=== PATIENT | female | born 1960 | race Caucasian/White ===

== ENCOUNTER 2022-02-05 17:40 | Observation (INO) ==
[2022-02-05 19:08] LABS: Basophils # (auto) 0.02 K/uL (0-0.2); Basophils % (auto) 0.2 %; Eosinophils # (auto) 0.18 K/uL (0-0.5); Eosinophils % (auto) 2.1 %; Hematocrit (blood only) 40.3 % (37-47); Immature Granulocytes # (auto) 0.01 K/uL (0.00-0.02); Immature Granulocytes % (auto) 0.1 %; Lymphocytes # (auto) 1.96 K/uL (1.2-3.4); Lymphocytes % (auto) 23.3 %; Mean Corpuscular Hemoglobin 32.6 pg (25-34); Mean Corpuscular Hgb Conc 34.7 g/dL (32-36); Mean Corpuscular Volume 93.7 fL (80-100); Mean Platelet Volume 10.6 fL (7.4-10.4); Monocytes # (auto) 0.49 K/uL (0.11-0.59); Monocytes % (auto) 5.8 %; Neutrophils # (auto) 5.75 K/uL (1.4-6.5); Neutrophils % (auto) 68.5 %; Platelet Count 212 K/uL (130-400); RDW Coefficient of Variation 12.8 % (11.5-14.5); RDW Standard Deviation 43.7 fL (36.4-46.3); White Blood Count 8.41 K/uL (4.8-10.8)
[2022-02-05 19:18] LABS: INR 0.9 (0.9-1.1); Partial Thromboplastin Ratio 0.9; Partial Thromboplastin Time 24.7 Seconds (21.0-31.0)
[2022-02-05 19:28] LABS: Alanine Aminotransferase 23 U/L (7-52); Albumin Globulin Ratio 1.6 (0.9-2); Albumin Level 4.7 gm/dl (3.4-5.0); Alkaline Phosphatase 51 U/L (34-104); Anion Gap 9 (3-11); Aspartate Aminotransferase 18 U/L (13-39); BUN Creatinine Ratio 21.7 (10-20); Bilirubin,Total 0.4 mg/dl (0.2-1.0); Blood Urea Nitrogen 15 mg/dl (6-23); Calcium 9.5 mg/dl (8.5-10.1); Carbon Dioxide 25 mmol/L (21-32); Chloride 104 mmol/L (98-107); Creatinine Clr Calc Pharmacy 102.8 ml/min; Est GFR (African American) 107.4 ml/min; Est GFR (Non-African American) 92.6 ml/min; Glucose 117 mg/dl (70-99(Fasting)); Potassium 3.5 mmol/L (3.5-5.1); Sodium 138 mmol/L (136-145); Total Protein 7.7 gm/dl (6.0-8.3)
[2022-02-05 19:29] LABS: Troponin I < 0.03 ng/ml (0-0.04)
[2022-02-05] MEDS ORDERED: ALUMINUM/MAGNESIUM SUSP 30 ML UDC PO STA (19:30)
[2022-02-05] MEDS ORDERED: METOPROLOL SUCC 25MG EXT REL TAB PO STA (19:40)
[2022-02-05] MEDS ORDERED: FLECAINIDE ACETATE 100 MG TABLET PO STA (19:40)
--- NOTE | 2022-02-05 19:52 | XRay Report ---
XR chest 1V portable CLINICAL HISTORY: Atypical chest pain TECHNIQUE: Single frontal radiograph of the chest was obtained. Comparison: Comparison is made to chest one view 05/29/2020 FINDINGS: No lines and tubes are seen. Cardiomegaly is noted. The lungs are clear. No evidence of pleural effus ion or pneumothorax. IMPRESSION: No acute chest disease. ACT 112: Negative or not required by law. Electronically signed by: Israel Meza M.D. 02/05/2022 7:50 PM
--- NOTE | 2022-02-05 23:40 | Emergency Department Note ---
History of Present Illness General Chief complaint: Chest Pain Stated complaint: BURNING SENSATION IN CHEST, SOB, HEADACHE Time Seen by Provider: 02/05/22 19:15 Source: patient and family (Significant other who is at the bedside) Mode of arrival: ambulatory Limitations: no limitations History of Present Illness Maximum Pain Intensity: 4 This patient is a 60-year-old female who comes in for evaluation of chest pain. She said this started 4:00 this afternoon while she was at the computer. It was 10 out of 10 and has weaned down to about 3 out of 10. She is not taking any medication she did come in by private vehicle. She does take an aspirin a day. She says that she had burning across her chest that she describes the pain and down both arms. She felt weak she had no shortness of breath or pleurisy no b ack pain no palpitations or dizziness or syncope. There is nothing that seem to make it better or worse. There is no change with movement or breathing or exertion that she could say. No blood or melena in her stool. She has been belching a lot but that is typical for her. She is had some chronic GI issues that is currently being worked up and she is scheduled have nuclear medicine study of her gastric emptying as well as a CAT scan of her abdomen in the near future she is had ultrasound of her gallbladder recently which was negative. She does have history of A. fib but is not on a long-term anticoagulation she declines. She does check her heart every morning to see if she is in A. fib and the last time she was in A. fib was last night she tells me. She had an episode in the past that felt like this that was A. fib but it got better and she is currently not in A. fib Home Medications Medication Instructions Recorded Confirmed Type cyanocobalamin (vitamin B-12) 1,000 mcg PO QPM 06/07/19 02/05/22 History 1,000 mcg tablet (Vitamin B-12) flecainide 100 mg tablet 100 mg PO DAILY@1900 06/07/19 02/05/22 History magnesium 250 mg tablet 250 mg PO QPM 06/07/19 02/05/22 History metoprolol succinate 25 mg 25 mg PO BID 06/07/19 02/05/22 History tablet,extended release 24 hr Lactobacillus acidophilus 1 tab PO DAILY 05/29/20 02/05/22 History cholecalciferol (vitamin D3) 25 25 mcg PO QPM 05/29/20 02/05/22 History mcg (1,000 unit) capsule (Vitamin D3) latanoprost 0.005 % eye drops 1 drp OPB HS 05/29/20 02/05/22 History omeprazole 20 mg capsule,delayed 20 mg PO QAM 05/29/20 02/05/22 History release rosuvastatin 5 mg tablet 5 mg PO DAILY 05/29/20 02/05/22 History timolol maleate 0.5 % eye drops 1 drp OPB QAM 05/29/20 02/05/22 History ascorbic acid (vitamin C) 1,000 mg 1 g PO QPM 02/05/22 02/05/22 History tablet (Vitamin C) aspirin 81 mg tablet,delayed 81 mg PO QPM 02/05/22 02/05/22 History release eplerenone 25 mg tablet 25 mg PO QAM 02/05/22 02/05/22 History flecainide 50 mg tablet 50 mg PO QAM 02/05/22 02/05/22 History hydrochlorothiazide 25 mg tablet 25 mg PO QAM 02/05/22 02/05/22 History Allergies Allergy/AdvReac Type Severity Reaction Status Date / Time Sulfa (Sulfonamide Allergy Unknown CAN'T Verified 02/05/22 19:13 Antibiotics) REMEMBER doxycycline AdvReac Intermediate CAUSED Verified 02/05/22 19:13 A-FIB Past Med/Surg History Medical History (Updated 02/05/22 @ 23:40 by Ankush Hernandez MD) A-fib Diverticulosis Family History Other No significant family history Social History Smoking Status: Current every day smoker Tobacco Type: Cigarettes Preferred Language: Sudanese Feels Safe at Home: Yes Review of Systems A total of 10 systems reviewed and were otherwise negative Physical Exam Vital Signs Vital Signs - 24 hr 02/05/22 17:46 02/05/22 19:14 02/05/22 19:15 Temperature 36.6 C Temperature Source Temporal Artery Scan Pulse Rate 58 L 59 L Pulse Rhythm Regular Respiratory Rate 18 22 Respiratory Effort / Characteristics Non-Labored Spontaneous Respiratory Depth Normal Respiratory Pattern Regular Blood Pressure 196/85 H Blood Pressure Mean 122 Blood Pressure Position Sitting Pulse Oximetry 99 98 98 Oxygen Delivery Method Room Air Room Air Room Air Sepsis Recent Fever Within 48 Hours No Sepsis New/Unexplained Change in Mental Status N/A Sepsis Action Taken by Nursing No Action Required 02/05/22 19:26 02/05/22 19:30 02/05/22 19:40 Temperature Temperature Source Pulse Rate 63 66 61 Pulse Rhythm Respiratory Rate 17 21 17 Respiratory Effort / Characteristics Respiratory Depth Respiratory Pattern Blood Pressure Blood Pressure Mean Blood Pressure Position Pulse Oximetry 98 99 98 Oxygen Delivery Method Room Air Room Air Room Air Sepsis Recent Fever Within 48 Hours Sepsis New/Unexplained Change in Mental Status Sepsis Action Taken by Nursing 02/05/22 19:50 02/05/22 20:00 02/05/22 20:10 Temperature Temperature Source Pulse Rate 60 61 56 L Pulse Rhythm Respiratory Rate 19 19 22 Respiratory Effort / Characteristics Respiratory Depth Respiratory Pattern Blood Pressure 147/87 H Blood Pressure Mean 107 Blood Pressure Position Pulse Oximetry 97 98 96 Oxygen Delivery Method Room Air Room Air Room Air Sepsis Recent Fever Within 48 Hours Sepsis New/Unexplained Change in Mental Status Sepsis Action Taken by Nursing 02/05/22 20:20 02/05/22 20:30 02/05/22 20:32 Temperature Temperature Source Pulse Rate 57 L 55 L 53 L Pulse Rhythm Respiratory Rate 17 15 15 Respiratory Effort / Characteristics Respiratory Depth Respiratory Pattern Blood Pressure 147/59 H 147/59 H Blood Pressure Mean 88 88 Blood Pressure Position Pulse Oximetry 96 96 98 Oxygen Delivery Method Room Air Room Air Room Air Sepsis Recent Fever Within 48 Hours Sepsis New/Unexplained Change in Mental Status Sepsis Action Taken by Nursing 02/05/22 20:40 02/05/22 20:50 02/05/22 21:00 Temperature Temperature Source Pulse Rate 63 55 L 57 L Pulse Rhythm Respiratory Rate 21 24 18 Respiratory Effort / Characteristics Respiratory Depth Respiratory Pattern Blood Pressure 137/69 Blood Pressure Mean 91 Blood Pressure Position Pulse Oximetry 97 98 97 Oxygen Delivery Method Room Air Room Air Room Air Sepsis Recent Fever Within 48 Hours Sepsis New/Unexplained Change in Mental Status Sepsis Action Taken by Nursing 02/05/22 21:10 02/05/22 21:20 02/05/22 21:30 Temperature Temperature Source Pulse Rate 57 L 58 L 62 Pulse Rhythm Respiratory Rate 21 21 17 Respiratory Effort / Characteristics Respiratory Depth Respiratory Pattern Blood Pressure Blood Pressure Mean Blood Pressure Position Pulse Oximetry 96 96 97 Oxygen Delivery Method Room Air Room Air Room Air Sepsis Recent Fever Within 48 Hours Sepsis New/Unexplained Change in Mental Status Sepsis Action Taken by Nursing 02/05/22 21:40 Temperature Temperature Source Pulse Rate 56 L Pulse Rhythm Respiratory Rate 12 Respiratory Effort / Characteristics Respiratory Depth Respiratory Pattern Blood Pressure Blood Pressure Mean Blood Pressure Position Pulse Oximetry 97 Oxygen Delivery Method Room Air Sepsis Recent Fever Within 48 Hours Sepsis New/Unexplained Change in Mental Status Sepsis Action Taken by Nursing General: Well developed well nourished middle-aged female who is not ill- appearing and appears in no acute distress, breathing comfortably on room air. Normal speech HEENT: Normal cephalic atraumatic. Pupils are equal round and reactive to light. Extraocular movements are intact. Oropharynx is pink with moist mucous membranes. No swelling of the mouth lips or tongue. Neck: Supple with a midline trachea. No meningeal signs or stiffness, no JVD or bruits. No Stridor. Chest: Clear to auscultation bilaterally. No wheezes or rhonchi. No increased work of breathing. Reproducibly tender. Heart: Regular rate and rhythm without murmurs or gallops. Abdomen: Soft she is mildly tender in epigastric area but tells me that is not the pain she is having today and that is more of a chronic issue she has been having nondistended without rebound guarding or rigidity. Extremities: No cyanosis clubbing or edema. No calf tenderness or assymetry Spine/Back. Non tender to palpation. No CVA tenderness Skin: Good turgor without rashes. Neurologic exam: Cranial nerves two through 12 are intact. Motor and sensation are intact and symmetrical throughout. Course Administered Medications Discontinued Medications Al Hydrox/Mg Hydrox/Simethicone (Aluminum/Magnesium Susp 30 Ml Udc) 30 ml PO NOW STA Stop: 02/05/22 19:31 Last Admin: 02/05/22 20:38 Dose: 30 ml Documented by: [id number] Flecainide Acetate (Flecainide Acetate 100 Mg Tablet) 50 mg PO NOW STA Stop: 02/05/22 19:41 Last Admin: 02/05/22 20:38 Dose: 50 mg Documented by: [id number] Metoprolol Succinate (Metoprolol Succ 25mg Ext Rel Tab) 25 mg PO NOW STA Stop: 02/05/22 19:41 Last Admin: 02/05/22 20:38 Dose: Not Given Documented by: [id number] Medical Decision Making Differential Diagnosis Acute coronary syndrome, arrhythmia, GERD, musculoskeletal, pneumothorax, CHF, electrolyte or metabolic abnormality Medical Records Attestation: I reviewed the patient's medical records. Home Medications Current Medication List: was personally reviewed by me Laboratory Data Attestation: I reviewed the patient's lab results. Result diagrams: 02/05/22 18:39 02/05/22 18:39 Lab Results 02/05/22 02/05/22 02/05/22 Range/Units 18:39 18:39 18:39 WBC 8.41 (4.8-10.8) K/uL RBC 4.30 (4.2-5.4) M/uL Hgb 14.0 (12.0-16.0) g/dL Hct 40.3 (37-47) % MCV 93.7 (80-100) fL MCH 32.6 (25-34) pg MCHC 34.7 (32-36) g/dL RDW Std Deviation 43.7 (36.4-46.3) fL RDW Coeff of Adeel 12.8 (11.5-14.5) % Plt Count 212 (130-400) K/uL MPV 10.6 H (7.4-10.4) fL Immature Gran % (Auto) 0.1 % Neut % (Auto) 68.5 % Lymph % (Auto) 23.3 % [place] % (Auto) 5.8 % Eos % (Auto) 2.1 % Baso % (Auto) 0.2 % Neut # (Auto) 5.75 (1.4-6.5) K/uL Lymph # (Auto) 1.96 (1.2-3.4) K/uL [place] # (Auto) 0.49 (0.11-0.59) K/uL Eos # (Auto) 0.18 (0-0.5) K/uL Baso # (Auto) 0.02 (0-0.2) K/uL Immature Gran # (Auto) 0.01 (0.00-0.02) K/uL PT 10.0 (9.0-12.0) Seconds INR 0.9 (0.9-1.1) APTT 24.7 (21.0-31.0) Seconds PTT Ratio 0.9 Sodium 138 (136-145) mmol/L Potassium 3.5 (3.5-5.1) mmol/L Chloride 104 (98-107) mmol/L Carbon Dioxide 25 (21-32) mmol/L Anion Gap 9 (3-11) BUN 15 (6-23) mg/dl Creatinine 0.69 (0.6-1.2) mg/dl Est Cr Clr Drug Dosing 102.8 ml/min Est GFR ( Amer) 107.4 ml/min Est GFR (Non-Af Amer) 92.6 ml/min BUN/Creatinine Ratio 21.7 H (10-20) Glucose 117 H (70-99(Fasting)) mg/dl Calcium 9.5 (8.5-10.1) mg/dl Total Bilirubin 0.4 (0.2-1.0) mg/dl AST 18 (13-39) U/L ALT 23 (7-52) U/L Alkaline Phosphatase 51 (34-104) U/L Troponin I < 0.03 (0-0.04) ng/ml Total Protein 7.7 (6.0-8.3) gm/dl Albumin 4.7 (3.4-5.0) gm/dl Globulin 3.0 (2.5-4.0) gm/dl Albumin/Globulin Ratio 1.6 (0.9-2) SARS-CoV-2, RNA, NAAT (NEGATIVE) 02/05/22 Range/Units Unknown WBC (4.8-10.8) K/uL RBC (4.2-5.4) M/uL Hgb (12.0-16.0) g/dL Hct (37-47) % MCV (80-100) fL MCH (25-34) pg MCHC (32-36) g/dL RDW Std Deviation (36.4-46.3) fL RDW Coeff of Adeel (11.5-14.5) % Plt Count (130-400) K/uL MPV (7.4-10.4) fL Immature Gran % (Auto) % Neut % (Auto) % Lymph % (Auto) % [place] % (Auto) % Eos % (Auto) % Baso % (Auto) % Neut # (Auto) (1.4-6.5) K/uL Lymph # (Auto) (1.2-3.4) K/uL [place] # (Auto) (0.11-0.59) K/uL Eos # (Auto) (0-0.5) K/uL Baso # (Auto) (0-0.2) K/uL Immature Gran # (Auto) (0.00-0.02) K/uL PT (9.0-12.0) Seconds INR (0.9-1.1) APTT (21.0-31.0) Seconds PTT Ratio Sodium (136-145) mmol/L Potassium (3.5-5.1) mmol/L Chloride (98-107) mmol/L Carbon Dioxide (21-32) mmol/L Anion Gap (3-11) BUN (6-23) mg/dl Creatinine (0.6-1.2) mg/dl Est Cr Clr Drug Dosing ml/min Est GFR ( Amer) ml/min Est GFR (Non-Af Amer) ml/min BUN/Creatinine Ratio (10-20) Glucose (70-99(Fasting)) mg/dl Calcium (8.5-10.1) mg/dl Total Bilirubin (0.2-1.0) mg/dl AST (13-39) U/L ALT (7-52) U/L Alkaline Phosphatase (34-104) U/L Troponin I (0-0.04) ng/ml Total Protein (6.0-8.3) gm/dl Albumin (3.4-5.0) gm/dl Globulin (2.5-4.0) gm/dl Albumin/Globulin Ratio (0.9-2) SARS-CoV-2, RNA, NAAT NEGATIVE (NEGATIVE) Imaging Data Attestation: I personally reviewed and interpreted this imaging study as follows: My Impression: Chest x-rayno acute infiltrate, failure, pneumothorax seen Radiologist's Impression: Chest X-Ray 02/05/22 19:32 XR chest 1V portable CLINICAL HISTORY: Atypical chest pain TECHNIQUE: Single frontal radiograph of the chest was obtained. Comparison: Comparison is made to chest one view 05/29/2020 FINDINGS: No lines and tubes are seen. Cardiomegaly is noted. The lungs are clear. No evidence of pleural effusion or pneumothorax. IMPRESSION: No acute chest disease. ACT 112: Negative or not required by law. Electronically signed by: Israel Meza M.D. 02/05/2022 7:50 PM ECG Data Attestation: I personally reviewed and interpreted this ECG as follows: Indication: + chest pain Rate (beats per minute): 58 Rhythm: + sinus bradycardia ECG Intervals/blocks: + Normal QRS, + Normal QT and + Normal IN ECG [place]: + Normal ECG ST segments: + Normal ST segments ECG Findings: no PACs or no PVCs Comparison ECG Date: from (04/29/20) Change: the following changes noted (Sinus arrhythmia has resolved.) MDM Narrative This patient is a 61-year-old female who comes in after having chest pressure that radiates down her arms. She does have several cardiac risk factors including hypertension. She does have history of A. fib but is not in A. fib here her pain had gone down to 3-10 and she was given Maalox. She did not want to try the nitroglycerin. She says she is very sensitive to medications. EKG does not appear ischemic troponin is negative chest x-ray is unremarkable. She has no acute electrolyte or metabolic abnormality. I have consulted Dr. Wall as I do think she needs to be admitted/observe for further cardiac work-up and rule out. She will be admitted/observed. Impression & Plan Chest pain, Epigastric abdominal pain, A-fib, HTN (hypertension), Lab test negative for COVID-19 virus Discharge Plan Visit Data Chief Complaint: Chest Pain Stated Complaint: BURNING SENSATION IN CHEST, SOB, HEADACHE ED Provider: Ankush Hernandez Discharge Problem: Chest pain, Epigastric abdominal pain, A-fib, HTN (hypertension), Lab test negative for COVID-19 virus Forms Stand Alone Forms: [facility] Prescriptions Prescriptions: No Action omeprazole 20 mg capsule,delayed release(DR/EC) 20 mg PO QAM RF: 0 rosuvastatin 5 mg tablet 5 mg PO DAILY RF: 0 latanoprost 0.005 % drops 1 drp OPB HS RF: 0 timolol maleate 0.5 % drops 1 drp OPB QAM RF: 0 cholecalciferol (vitamin D3) [Vitamin D3] 25 mcg (1,000 unit) Capsule 25 mcg PO QPM RF: 0 Lactobacillus acidophilus Tablet,Chewable 1 tab PO DAILY RF: 0 cyanocobalamin (vitamin B-12) [Vitamin B-12] 1,000 mcg Tablet 1,000 mcg PO QPM RF: 0 flecainide 100 mg Tablet 100 mg PO DAILY@1900 RF: 0 magnesium 250 mg Tablet 250 mg PO QPM RF: 0 metoprolol succinate 25 mg Tablet Extended Release 24 Hr 25 mg PO BID RF: 0 ascorbic acid (vitamin C) [Vitamin C] 1,000 mg Tablet 1 g PO QPM RF: 0 aspirin 81 mg Tablet,Delayed Release (Dr/Ec) 81 mg PO QPM RF: 0 hydrochlorothiazide 25 mg tablet 25 mg PO QAM RF: 0 eplerenone 25 mg tablet 25 mg PO QAM RF: 0 flecainide 50 mg tablet 50 mg PO QAM RF: 0 Referrals Referrals: Ilana Harris MD [Primary Care Provider] -
--- NOTE | 2022-02-05 23:57 | History and Physical Report ---
DATE OF ADMISSION: 02/05/2022. CHIEF COMPLAINT: Chest pain. HISTORY OF PRESENT ILLNESS: A 61-year-old female with past medical history significant for hyperlipidemia, paroxysmal atrial fibrillation, hypertension, morbid obesity, GERD, fatty liver, glaucoma, diverticulitis, history of depression, status post ablation of atrial flutter,comes with chest pain. The patient was sitting on the chair working on her computer at 4:00 p.m. today when she noticed burning sensation in the chest radiating to both arms and feeling numbness in the arms. It was very severe initially and it was not getting better, so she came to the ER and she was given Maalox and currently pain is about 2/10 in severity. During the episode, she had some nausea, some shortness of breath. Denies any headache, no dizziness, no cough, no fever, no chills, no runny nose, no sore throat, no diarrhea or constipation. With exertion, she gets short of breath. The patient is also having some epigastric abdominal pain going for the last 2 years. Yesterday, she had an episode of abdominal pain and at that time she went into AFib and thinks she converted to sinus rhythm in the morning today at 6:00 a.m. She also saw GI recently in December and there is a plan for CT abdomen and pelvis with contrast to rule out for celiac artery stenosis and Carafate was ordered, but the patient has not started taking it yet. ALLERGIES: SULFA ANTIBIOTICS, DOXYCYCLINE. PAST MEDICAL HISTORY: As mentioned above. PAST SURGICAL HISTORY: Ablation of heart, colonoscopy, I and D of perirectal abscess, tubal ligation, removal of ovarian cyst, inguinal hernia repair. MEDICATIONS: The patient is currently on ascorbic acid 500 mg one p.o. daily, aspirin 81 mg p.o. daily, vitamin D 25 mcg p.o. a.m., vitamin B12 1000 mcg p.o. a.m., eplerenone 25 mg p.o. a.m., flecainide 100 mg p.o. p.m. and flecainide 50 mg p.o. a.m., hydrochlorothiazide 25 mg p.o. a.m., lactobacillus 1 tablet p.o. daily, latanoprost one drop ophthalmic at bedtime, magnesium 250 mg p.o. p.m., metoprolol succinate 25 mg p.o. b.i.d., omeprazole 20 mg p.o. a.m., lovastatin 5 mg p.o. daily, timolol 1 drop ophthalmic in a.m. FAMILY HISTORY: Significant for uncle with throat cancer, lung cancer; mother has diabetes, hypertension; father has heart multiple MIs; uncle has ME; sister has hypertension. SOCIAL HISTORY: Smokes 1 pack a day since 1974. Alcohol occasional. No drug use. REVIEW OF SYSTEMS: As per HPI. Rest of review of systems is negative. PHYSICAL EXAMINATION: GENERAL: The patient is obese, not in acute distress. VITAL SIGNS: Temperature 36.6, pulse 55, respiratory rate 24, blood pressure 147/59, oxygen 98% on room air. HEENT: Pupils equal, round and reactive to light. Oral mucosa moist. NECK: No JVD, no neck masses. CARDIOVASCULAR: S1 and S2 heard. Regular rate and rhythm. No murmur, no gallop. RESPIRATORY SYSTEM: Normal AP diameter. No accessory muscle use. No wheezing, no crackles. ABDOMEN: Soft, bowel sounds present. Mild epigastric tenderness. No guarding, no rigidity, no distention. CENTRAL NERVOUS SYSTEM: Cranial nerves II-XII grossly intact, nonfocal. EXTREMITIES: No edema, no erythema. LABORATORY DATA: WBC 8.4, hemoglobin 14, hematocrit 40.3, platelets 212. PT 10, INR 0.9, APTT 34.7. Sodium 138, potassium 3.5, chloride 104, bicarb 25, BUN 15, creatinine 0.6, serum glucose 117, calcium 9.5, total bilirubin 0.4, AST 18, ALT 23, alkaline phosphatase 51. Troponin I less than 0.03. SARS-CoV-2 RNA, rapid test negative. IMAGING DATA: Chest x-ray, no active disease in the chest. EKG: Sinus bradycardia at a rate of 55, no significant change was found. ASSESSMENT AND PLAN: A 61-year-old female who presents with chest pain. 1. Chest pain: Burning pain in the chest, radiating to both arms. Initial workup is unremarkable. Will follow serial enzymes, echocardiogram. Keep n.p.o. after midnight. Consult cardiology in the a.m. 2. Paroxysmal atrial fibrillation: On flecainide, metoprolol and aspirin. The patient seems to be adjusting her flecainide doses. Seems she has bradycardia. Will await cardiology input. 3. History of hypertension: Continue her home medication of metoprolol, hydrochlorothiazide, eplerenone. Will monitor the blood pressure. 4. Morbid obesity: Needs counseling. 5. Epigastric pain: History of gastroesophageal reflux disease, on omeprazole. Will place on IV Pepcid. Plan for CT abdomen and pelvis to rule out celiac stenosis. Consult GI while the patient is in the hospital. 6. Hyperlipidemia: On statin. 7. Deep venous thrombosis prophylaxis: Will place on sequential compression devices. DISPOSITION: Observe in the tele floor. PT/OT prior to discharge. Social service to help with discharge planning. Job ID: [id number] [id number]
[2022-02-06] MEDS ORDERED: NITROGLYCERIN SL 0.4 MG/TAB TAB SL PRN (00:18)
[2022-02-06] MEDS ORDERED: ACETAMINOPHEN 325 MG TAB PO PRN (00:18)
[2022-02-06] MEDS: FAMOTIDINE 20 MG in SYRINGE 3 ML IV SCH ×2 (01:10→10:14)
[2022-02-06 06:14] LABS: Basophils # (auto) 0.01 K/uL (0-0.2); Basophils % (auto) 0.2 %; Eosinophils # (auto) 0.13 K/uL (0-0.5); Hematocrit (blood only) 39.8 % (37-47); Hemoglobin 13.3 g/dL (12.0-16.0); Immature Granulocytes # (auto) 0.01 K/uL (0.00-0.02); Immature Granulocytes % (auto) 0.2 %; Lymphocytes # (auto) 2.01 K/uL (1.2-3.4); Lymphocytes % (auto) 30.2 %; Mean Corpuscular Hemoglobin 31.5 pg (25-34); Mean Corpuscular Hgb Conc 33.4 g/dL (32-36); Mean Corpuscular Volume 94.3 fL (80-100); Mean Platelet Volume 11.1 fL (7.4-10.4); Monocytes # (auto) 0.51 K/uL (0.11-0.59); Monocytes % (auto) 7.7 %; Neutrophils # (auto) 3.98 K/uL (1.4-6.5); Neutrophils % (auto) 59.7 %; Platelet Count 183 K/uL (130-400); RDW Coefficient of Variation 12.6 % (11.5-14.5); RDW Standard Deviation 43.2 fL (36.4-46.3); Red Blood Count 4.22 M/uL (4.2-5.4); White Blood Count 6.65 K/uL (4.8-10.8)
[2022-02-06 06:37] LABS: BUN Creatinine Ratio 21.3 (10-20); Calcium 9.1 mg/dl (8.5-10.1); Est GFR (African American) 111.8 ml/min; Est GFR (Non-African American) 96.5 ml/min; Magnesium 2.2 mg/dl (1.7-2.4); Potassium 3.7 mmol/L (3.5-5.1)
[2022-02-06 06:40] LABS: Troponin I 1.15 ng/ml (0-0.04)
[2022-02-06] MEDS ORDERED: Heparin IV Adult Wt-Based Standard *NO* Bolus Protocol IV SCH ×2 (07:45→16:00)
[2022-02-06] MEDS ORDERED: HEPARIN SODIUM/DEXTROSE 25,000 UNITS/500 ML BAG IV SCH ×2 (08:00→10:00)
[2022-02-06] MEDS ORDERED: Heparin IV Adult Wt-Based Low-Dose WITH Bolus Protocol IV SCH (08:33)
[2022-02-06] MEDS ORDERED: FLECAINIDE ACETATE 100 MG TABLET PO SCH ×2 (09:00→19:00)
[2022-02-06] MEDS ORDERED: hydroCHLOROthiazide 25 MG TAB PO SCH (09:00)
[2022-02-06] MEDS ORDERED: ROSUVASTATIN CALCIUM 5 MG TAB PO SCH (09:00)
[2022-02-06 09:12] LABS: Partial Thromboplastin Ratio 0.9; Partial Thromboplastin Time 24.9 Seconds (21.0-31.0)
--- NOTE | 2022-02-06 09:28 | Cardiology Consultation ---
Date of Consultation February 06, 2022 Assessment & Plan (1) Non-ST elevation (NSTEMI) myocardial infarction: (2) Paroxysmal atrial fibrillation: (3) Tobacco abuse: (4) Dyslipidemia: 61-year-old female admitted with chest discomfort. Elevated troponin suggest NSTEMI. Currently pain-free. ECG without ischemic changes. Bedside echocardiogram without regional wall motion abnormality. Recommend treatment with aspirin, 325 mg x 1 now. Conservative versus invasive strategy discussed. Patient agreeable to cardiac catheterization. 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 Recurrent atrial fibrillation recorded overnight. Patient denies any symptoms although she does carry a history of sleep apnea treated with dental apparatus. She has declined anticoagulation in the past due to concerns regarding bleeding side effects. We discussed addition of Eliquis pending review of catheterization results. With evidence of NSTEMI. Flecainide must be discontinued. Continue beta-george therapy. 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 Titrate rosuvastatin to 20 mg daily. In anticipation of drug-eluting stent implantation, I discussed the need for continuation of dual antiplatelet therapy for minimum of 1 year, specifically clopidogrel or Brilinta. If oral anticoagulation with Eliquis is initiated, patient will likely be discharged on Plavix/Brilinta and Eliquis long-term. History of Present Illness Reason for Consultation: chest pain Requesting Physician: Dr. Wall Attending Physician: Zenon Milan MD History of Present Illness 61-year-old female presented to the emergency department with complaint of chest pain. Describes a burning sensation in her chest that started at 4:00 in the afternoon while working at her computer. Pain trended up to 10/10 and then slowly trended down to 3/10. ECG without ischemic changes. Troponin trending up to 1.15. History of paroxysmal atrial flutter diagnosed in 2010 status post atrial flutter ablation with Dr. Espinoza. She then developed paroxysmal atrial f ibrillation later that year and was prescribed flecainide. She is not anticoagulated. Followed by Dr. Burrows of electrophysiology. Nuclear stress test performed in March 2020 - for inducible ischemia. Most recent ZIO monitor performed in November 2020 without evidence of recurrent atrial fibrillation, however, rare salvos of SVT noted. Limited review of bedside 2D transthoracic echocardiogram demonstrates normal wall motion with preserved LV systolic function. Patient remains in sinus rhythm since admission. Pain free overnight. Currently asymptomatic. 30 min of PAF overnight without ass ociated symptoms. Has declined anticoagulation in the past due to fear of GIB and intracranial bleeding. Allergies Allergy/AdvReac Type Severity Reaction Status Date / Time Sulfa (Sulfonamide Allergy Unknown CAN'T Verified 02/05/22 19:13 Antibiotics) REMEMBER doxycycline AdvReac Intermediate CAUSED Verified 02/05/22 19:13 A-FIB Home Medications Medication Instructions Recorded Confirmed Type cyanocobalamin (vitamin B-12) 1,000 mcg PO QPM 06/07/19 02/05/22 History 1,000 mcg tablet (Vitamin B-12) flecainide 100 mg tablet 100 mg PO DAILY@1900 06/07/19 02/05/22 History magnesium 250 mg tablet 250 mg PO QPM 06/07/19 02/05/22 History metoprolol succinate 25 mg 25 mg PO BID 06/07/19 02/05/22 History tablet,extended release 24 hr Lactobacillus acidophilus 1 tab PO DAILY 05/29/20 02/05/22 History cholecalciferol (vitamin D3) 25 25 mcg PO QPM 05/29/20 02/05/22 History mcg (1,000 unit) capsule (Vitamin D3) latanoprost 0.005 % eye drops 1 drp OPB HS 05/29/20 02/05/22 History omeprazole 20 mg capsule,delayed 20 mg PO QAM 05/29/20 02/05/22 History release rosuvastatin 5 mg tablet 5 mg PO DAILY 05/29/20 02/05/22 History timolol maleate 0.5 % eye drops 1 drp OPB QAM 05/29/20 02/05/22 History ascorbic acid (vitamin C) 1,000 mg 1 g PO QPM 02/05/22 02/05/22 History tablet (Vitamin C) aspirin 81 mg tablet,delayed 81 mg PO QPM 02/05/22 02/05/22 History release eplerenone 25 mg tablet 25 mg PO QAM 02/05/22 02/05/22 History flecainide 50 mg tablet 50 mg PO QAM 02/05/22 02/05/22 History hydrochlorothiazide 25 mg tablet 25 mg PO QAM 02/05/22 02/05/22 History Patient History Medical History (Updated 02/06/22 @ 10:36 by Uche Greer DO) A-fib Diverticulosis Family History Other No significant family history Social History Smoking Status: Current every day smoker Tobacco Type: Cigarettes Cigarettes Per Day: 7; Second Hand Exposure: No; Do You Dip or Chew Tobacco: No; Tobacco Cessation Education Requested by Patient: No Hx Alcohol Use: No Hx Substance Use: No Preferred Language: Croatian Communication Ability: Effective Grain Broker Required: No Beliefs That Will Affect Care: None Current Living Situation: Significant Other Other Information That Helps Us Care for You: No Feels Safe at Home: Yes Safety Concerns: Feels Safe At This Time Assistive Devices: None Review of Systems Review of Systems: All systems reviewed & are unremarkable except as noted in Subjective Physical Exam Constitutional: well developed and well nourished; no acute distress Respiratory: no respiratory distress, no labored breathing and no retractions Auscultation: + diminished lung sounds; no crackles, no rales, no rhonchi and no wheezes Cardiovascular: Rate/Rhythm: regular rate and regular rhythm Heart Sounds: normal S1 and normal S2; no murmur Vessels: femoral pulses present and radial pulses present Extremities: no edema Gastrointestinal (Abdomen): Inspection/Auscultation: normal bowel sounds; abdomen not distended Percussion/Palpation: abdomen soft; abdomen nontender, no guarding and abdomen not rigid Neurologic: CN's II-XI intact bilaterally and moves all extremities; no focal motor deficits Motor/Sensory: no tremor Psychiatric: A+Ox3, euthymic affect Results & Data ([facility]) Vital Signs (Past 12 Hours) Vital Signs Temp Pulse Pulse Resp BP Pulse Ox Pulse Ox 02/06/22 08:19 36.7 C 76 18 128/60 02/06/22 03:38 36.4 C L 53 L 18 122/81 96 02/06/22 00:30 51 L 02/06/22 00:20 36.5 C 54 L 18 157/81 H 99 02/06/22 00:18 99 02/06/22 00:11 36.5 C 57 L 18 157/81 H 98 02/05/22 21:40 56 L 12 97 02/05/22 21:30 62 17 97
[2022-02-06] MEDS ORDERED: niCARdipine HCL INJ 2.5 MG/ML 10 ML AMP ONE (10:05)
[2022-02-06] MEDS ORDERED: MIDAZOLAM HCL 1 MG/ML 2ML VIAL ONE ×2 (10:05→12:11)
[2022-02-06] MEDS ORDERED: HEPARIN (PORCINE) 1000 UNIT/ML 10 ML (CATH LAB USE ONLY) ONE ×2 (10:05→12:11)
[2022-02-06] MEDS ORDERED: LIDOCAINE 1% LOCAL 20 ML VIAL ONE (10:06)
[2022-02-06] MEDS ORDERED: NITROGLYCERIN/D5W 100MCG/ML 20ML SYR ONE (10:06)
[2022-02-06] MEDS ORDERED: fentaNYL citrate 100 MCG/2 ML VIAL ONE (10:06)
[2022-02-06] MEDS: ADVANCED PROBIOTIC 1250 MG CAPSULE PO SCH (10:14)
[2022-02-06] MEDS: METOPROLOL SUCC 25MG EXT REL TAB PO SCH ×2 (10:14→20:32)
[2022-02-06] MEDS: PANTOprazole 40 MG TAB PO SCH (10:14)
[2022-02-06] MEDS: TIMOLOL MALEATE 0.5% OP SOLN 5 ML BTL OPB SCH (10:15)
[2022-02-06] MEDS ORDERED: ASPIRIN 81 MG CHEW ONE (10:16)
--- NOTE | 2022-02-06 10:27 | Pre Anesthesia Assessment ---
Date of Service February 06, 2022 Pre Sedation Assessment Vital Signs Temp Pulse Pulse Resp BP BP Pulse Ox 02/06/22 10:17 63 18 120/66 98 02/06/22 08:19 36.7 C 76 18 128/60 02/06/22 03:38 36.4 C L 53 L 18 122/81 96 02/06/22 00:30 51 L 02/06/22 00:20 36.5 C 54 L 18 157/81 H 99 02/06/22 00:18 02/06/22 00:11 36.5 C 57 L 18 157/81 H 98 02/05/22 21:40 56 L 12 97 02/05/22 21:30 62 17 97 02/05/22 21:20 58 L 21 96 02/05/22 21:10 57 L 21 96 02/05/22 21:00 57 L 18 137/69 97 02/05/22 20:50 55 L 24 98 02/05/22 20:40 63 21 97 02/05/22 20:32 53 L 15 147/59 H 98 02/05/22 20:30 55 L 15 147/59 H 96 02/05/22 20:20 57 L 17 96 02/05/22 20:10 56 L 22 96 02/05/22 20:00 61 19 147/87 H 98 02/05/22 19:50 60 19 97 02/05/22 19:40 61 17 98 02/05/22 19:30 66 21 99 02/05/22 19:26 63 17 98 02/05/22 19:15 98 02/05/22 19:14 59 L 22 98 02/05/22 17:46 36.6 C 58 L 18 196/85 H 99 Pulse Ox 02/06/22 10:17 02/06/22 08:19 02/06/22 03:38 02/06/22 00:30 02/06/22 00:20 02/06/22 00:18 99 02/06/22 00:11 02/05/22 21:40 02/05/22 21:30 02/05/22 21:20 02/05/22 21:10 02/05/22 21:00 02/05/22 20:50 02/05/22 20:40 02/05/22 20:32 02/05/22 20:30 02/05/22 20:20 02/05/22 20:10 02/05/22 20:00 02/05/22 19:50 02/05/22 19:40 02/05/22 19:30 02/05/22 19:26 02/05/22 19:15 02/05/22 19:14 02/05/22 17:46 Cardiovascular RRR, no murmur, no edema + radial pulses present; no JVD and no carotid bruit no edema Respiratory + respiratory effort normal; no respiratory distress, no labored breathing and no retractions + clear to auscultation bilaterally; no diminished lung sounds, no crackles, no rales, no rhonchi and no wheezes Pre-Sedation Airway Assessment Smoking Status: Current every day smoker Hx Sleep Apnea: Yes Short, Thick Neck: No Thyromental Distance: > or= 3.5 Finger Breadths Oral Cavity: + WNL Mallampati Class: III ASA: ASA3 NPO Status Date of Last Intake of Fluids: 02/06/22 Time of Last Intake of Fluids: 20:00 Date of Last Intake of Solid Food: 02/05/22 Time of Last Intake of Solid Foods: 13:00 Procedure Planning Contraindications for Sedation: none Current Medications Reviewed: Yes Notes The planned sedation has been discussed with the patient. Informed Consent was obtained. I have identified the patient, determined the appropriateness of sedation and have assessed the patient immediately prior to the procedure. All medicine(s) and interventions are by my order.
[2022-02-06] MEDS ORDERED: HEPARIN SOD (PORCINE) 1000 UNIT/ML IV ONE (10:30)
--- NOTE | 2022-02-06 10:44 | Electrocardiogram Report ---
Test Reason : Blood Pressure : / mmHG Vent. Rate : 058 BPM Atrial Rate : 058 BPM P-R Int : 188 ms QRS Dur : 098 ms QT Int : 444 ms P-R-T Axes : 061 024 061 degrees QTc Int : 435 ms Sinus bradycardia Otherwise normal ECG When compared with ECG of 29-MAY-2020 21:44, No significant change was found Confirmed by Aly Braxton ([id number]) on 02/06/2022 10:44:29 AM Referred By: REFERRED SELF Confirmed By:Tang Braxton
--- NOTE | 2022-02-06 10:45 | Communication Note ---
Date of Service: February 06, 2022 Pt admitted for CP. Records reviewed. Card consult: NSTEMI. After discussion with Dr. Milan (primary hospitalist) the GI consult was cancelled. Please re consult GI if new/worsening GI issues.
--- NOTE | 2022-02-06 10:50 | Electrocardiogram Report ---
Test Reason : Blood Pressure : / mmHG Vent. Rate : 058 BPM Atrial Rate : 058 BPM P-R Int : 198 ms QRS Dur : 098 ms QT Int : 456 ms P-R-T Axes : 078 -14 058 degrees QTc Int : 447 ms Sinus bradycardia Nonspecific ST abnormality Abnormal ECG When compared with ECG of 05-FEB-2022 17:56, (unconfirmed) No significant change was found Confirmed by Aly Braxton ([id number]) on 02/06/2022 10:49:55 AM Referred By: REFERRED SELF Confirmed By:Tang Braxton
[2022-02-06] MEDS ORDERED: ADENOSINE IV SOLN 3 MG/ML 20 ML VIAL IV ONE (11:20)
--- NOTE | 2022-02-06 11:24 | Post Anesthesia Assessment ---
Date of Service February 06, 2022 Post Sedation Assessment Vital Signs Temp Pulse Pulse Resp BP BP Pulse Ox 02/06/22 10:17 63 18 120/66 98 02/06/22 08:19 36.7 C 76 18 128/60 02/06/22 03:38 36.4 C L 53 L 18 122/81 96 02/06/22 00:30 51 L 02/06/22 00:20 36.5 C 54 L 18 157/81 H 99 02/06/22 00:18 02/06/22 00:11 36.5 C 57 L 18 157/81 H 98 02/05/22 21:40 56 L 12 97 02/05/22 21:30 62 17 97 02/05/22 21:20 58 L 21 96 02/05/22 21:10 57 L 21 96 02/05/22 21:00 57 L 18 137/69 97 02/05/22 20:50 55 L 24 98 02/05/22 20:40 63 21 97 02/05/22 20:32 53 L 15 147/59 H 98 02/05/22 20:30 55 L 15 147/59 H 96 02/05/22 20:20 57 L 17 96 02/05/22 20:10 56 L 22 96 02/05/22 20:00 61 19 147/87 H 98 02/05/22 19:50 60 19 97 02/05/22 19:40 61 17 98 02/05/22 19:30 66 21 99 02/05/22 19:26 63 17 98 02/05/22 19:15 98 02/05/22 19:14 59 L 22 98 02/05/22 17:46 36.6 C 58 L 18 196/85 H 99 Pulse Ox 02/06/22 10:17 02/06/22 08:19 02/06/22 03:38 02/06/22 00:30 02/06/22 00:20 02/06/22 00:18 99 02/06/22 00:11 02/05/22 21:40 02/05/22 21:30 02/05/22 21:20 02/05/22 21:10 02/05/22 21:00 02/05/22 20:50 02/05/22 20:40 02/05/22 20:32 02/05/22 20:30 02/05/22 20:20 02/05/22 20:10 02/05/22 20:00 02/05/22 19:50 02/05/22 19:40 02/05/22 19:30 02/05/22 19:26 02/05/22 19:15 02/05/22 19:14 02/05/22 17:46 Recovery Score Activity: Moves 4 extremities Respiration: Deep Breath/Cough Circulation: +/-20% PreAnes Value Consciousness: Arouseable (by name) Oxygen Saturation: > 92% On Room Air Discharge Sedation Level of Care: Phase I Post Sedation Plan On clinical assessment, the patient appears to have tolerated the sedation without complications. Patient is recovering as anticipated. Patient will continue to be monitored by nursing and may be discharged when sedation discharge criteria are met per below protocol. Upon Completions of procedure up to 15 minutes continue every 5 minute vital signs and the P.A.R. score; then discharge to a Phase I or Fast Track to Phase II per the following guidelines: * Discharge Patient to appropriate Phase II area if PAR is 8 or greater or retur n to pre- procedure baseline. The post - procedure orders will be as directed. * If PAR score is less than 8 or not return to pre-procedure baseline then patient will follow Phase I monitoring till PAR is reached for Phase II. The Phase I may be done in procedure room or may call to secure a Phase I area. * If naloxone or flumazenil are used for reversal, hold in Phase I for continued monitoring from when last reversal dose was given for a minimum of 60 minutes or longer pending the nurse and/or physician discretion of patient condition before discharge to Phase II. Please call the Sedation Physician to re-evaluate and complete post-note for discharge to Phase II area. Do NOT discharge from procedure sedation or Phase 1 until post- sedation evaluation note is complete by procedure /sedation MD Sedation Discharge Instructions to be given to the patient at discharge to home.
--- NOTE | 2022-02-06 11:40 | Cardiac Catheterization ---
Cardiac Cath Procedure Full Procedure Date February 06, 2022 Pre-Procedure Diagnosis Pre-Procedure Diagnosis: Non STEMI and Arrhythmia AUC Score AUC Score: 8 Post-Procedure Diagnosis Post-Procedure Diagnosis: Severe CAD and Normal Intracardiac Pressures Procedure(s) Performed Procedure(s) Performed: Coronary Angiography and Left Heart Cath Leather Goods Maker Uche Greer DO Geotechnical Engineering Technician(s) Cr TEJADA Estimated Blood Loss Estimated Blood Loss: 5cc Medication(s) Medication(s): Fentanyl, Heparin, Lidocaine 1%, Nicardipine, Nitroglycerin and Versed Summary of Findings 99% distal RPDA stenosis, cardioembolic versus plaque rupture event 60% early-mid LAD stenosis Hemodynamics Rest Ao:: 114/66/92 Final Ao: 132//62/91 LV: 122/1/8 Recommendations Recommendations: Management Recommendatons (Medical management of distal RPDA stenosis. FFR assessment of early-mid LAD stenosis.) Radiation Exposure (mGy) 1256 Contrast (mls) 55 Fluids (cc crystalloids) Fluids (cc crystalloids): 160 Nss Drains Drains: N/A Anesthesia Moderate sedation. Start 1044. End Sedation monitor: Ariela WILLARD Procedural Complication(s) None Disposition Patient remained in [facility] for FFR of LAD. I attest to the content of the Intraoperative Record and any orders documented therein. Any exceptions are noted below. ACC Data: [facility] Cardiac Status Clinical evaluation leading to the procedure CAD Presenation: Non STEMI Anginal Classification: CCS IV Heart Failure: No Cardiogenic Shock within 24 Hours: No Cardiac Arrest within 24 Hours: No Imaging Studies Past 6 Months: No Stress Studies Past 6 Months: No STEMI OR Non-STEMI Symptom Onset Date: 01/15/22 Symptom Onset Time: 16:00 Thrombolytics: No Coronary Anatomy Dominant: Right Left Main (% Stenosis): Ostial (20% taper/bend) LAD (% Stenosis): Mid (60% early-mid, 30% late mid) and Distal (30%) D1 (% Stenosis): Normal D2 (% Stenosis): Normal Circumflex (% Stenosis): Proximal (10%) and Mid (20% distal to OM1) OM1 (% Stenosis): Normal L PL1 (% Stenosis): Normal L PL2 (% Stenosis): Normal RCA (% Stenosis): Proximal (10-20% diffuse) and Mid (30%) R PDA (% Stenosis): Distal (99%) R PL1 (% Stenosis): Normal (small 1.5mm vessel) R PL2 (% Stenosis): Normal (small 1.5mm vessel) Diagnostic Physicians Name: Uche Greer DO Closure Device Closure Device: Radial Band Recommendations: Management Recommendatons (Medical management of distal RPDA stenosis. FFR assessment of early-mid LAD stenosis.) Intraprocedure Events Significant Disection: No Perforation: No
--- NOTE | 2022-02-06 12:20 | Hospitalist Progress Note ---
Date of Service February 06, 2022 Assessment & Plan (1) Non-ST elevation (NSTEMI) myocardial infarction: (2) Paroxysmal atrial fibrillation: (3) HTN (hypertension): Plan: 61-year-old female presented to the ED yesterday with chest pain and found to have NSTEMI, status post cardiac cath today NSTEMI- trop 0.03->1.15->1.48. Echo with no WMA. S/p heparin drip. S/p cardiac cath which showed severe CAD with 99% distal RPDA stenosis cardioembolic vs plaque rupture event and 60% early mid LAD stenosis. Recommended medical management of distal RPDA stenosis and FFR assessment of early-mid LAD stenosis. Cardio following. continue aspirin, betablocker, statin Paroxysmal atrial fibrillation- Home flecainide discontinued in setting of CAD. continue beta george, telemetry. She declined anticoagulation on the past- cardio following Essential HTN- BP stable, continue toprol with hold parameters. Resume HCTZ and eplerenone as indicated. She is to bring eplerenone from home as we do not have in pharmacy. DVT ppx- heparin drip Dispo- cardiac cath today. Admission and Anticipated Discharge Date Admission Date: February 05, 2022 Subjective Very minimal residual chest pain since admission. No nausea or vomiting. No fever or chills. Physical Exam Physical Exam: General: Lying comfortably in bed, not in distress, on room air HEENT: EOMI, KERRI, MMM Chest: Clear breath sounds bilaterally, no wheezes or crackles CVS: Regular rate and rhythm, normal heart sounds, no murmur Abdomen: Soft, non tender, not distended, normal bowel sounds Neuro: Awake, alert, oriented, conversing well, non focal Extremities: No cyanosis, clubbing or edema Results & Data Results & Data ([facility]) Vital Signs (Past 12 Hours) Vital Signs Temp Pulse Pulse Resp BP Pulse Ox 02/06/22 10:17 63 18 120/66 98 02/06/22 08:19 36.7 C 76 18 128/60 02/06/22 03:38 36.4 C L 53 L 18 122/81 96 02/06/22 00:30 51 L 02/06/22 00:20 36.5 C 54 L 18 157/81 H 99 Laboratory Results Short CBC 02/05/22 02/06/22 Range/Units 18:39 05:22 WBC 8.41 6.65 (4.8-10.8) K/uL Hgb 14.0 13.3 (12.0-16.0) g/dL Hct 40.3 39.8 (37-47) % Plt Count 212 183 (130-400) K/uL BMP 02/05/22 02/06/22 18:39 05:22 Sodium 138 140 Potassium 3.5 3.7 Chloride 104 107 Carbon Dioxide 25 25 BUN 15 13 Creatinine 0.69 0.61 Glucose 117 H 118 H Calcium 9.5 9.1 Cardiac Enzymes 02/05/22 02/06/22 02/06/22 Range/Units 18:39 05:22 09:09 Troponin I < 0.03 1.15 H* 1.48 H* (0-0.04) ng/ml Liver Function 02/05/22 Range/Units 18:39 Total Bilirubin 0.4 (0.2-1.0) mg/dl AST 18 (13-39) U/L ALT 23 (7-52) U/L Alkaline Phosphatase 51 (34-104) U/L Albumin 4.7 (3.4-5.0) gm/dl Medications Administered Current Inpatient Medications Acetaminophen (Acetaminophen 325 Mg Tab) 650 mg PO Q4H PRN PRN Reason: Pain or Fever Stop: 03/08/22 00:17 Ascorbic Acid (Ascorbic Acid 500 Mg Tab) 1,000 mg PO QPM [facility] Stop: 03/08/22 20:59 Aspirin (Aspirin 81 Mg Ectab) 81 mg PO QPM [facility] Stop: 03/08/22 20:59 Cyanocobalamin (Cyanocobalamin (B-12) 500 Mcg Tablet) 1,000 mcg PO QPM [facility] Stop: 03/08/22 20:59 Hydrochlorothiazide (Hydrochlorothiazide 25 Mg Tab) 25 mg PO QAM [facility] Stop: 03/08/22 08:59 Last Admin: 02/06/22 10:14 Dose: Not Given Documented by: Famotidine 20 mg/ Syringe 5 mls @ 2.5 mls/min IV BID [facility] Stop: 03/08/22 00:17 Last Admin: 02/06/22 10:14 Dose: Not Given Documented by: Heparin Sodium/Dextrose (Heparin Sodium/Dextrose) 25,000 units in 500 mls @ 18 mls/hr IV .Q24H [facility]; Protocol Stop: 03/08/22 09:59 Lactobacillus Acidophilus (Advanced Probiotic 1250 Mg Capsule) 2 cap PO DAILY [facility] Stop: 03/08/22 08:59 Last Admin: 02/06/22 10:14 Dose: Not Given Documented by: Latanoprost (Latanoprost 0.005% Op Soln 2.5 Ml Btl) 1 drops OPB HS [facility] Stop: 03/08/22 20:59 Magnesium Oxide (Magnesium Oxide 400 Mg Tab) 200 mg PO QPM [facility] Stop: 03/08/22 20:59 Metoprolol Succinate (Metoprolol Succ 25mg Ext Rel Tab) 25 mg PO BID [facility] Stop: 03/08/22 08:59 Last Admin: 02/06/22 10:14 Dose: Not Given Documented by: Miscellaneous (Order Awaiting Action: Eplerenone 25 Mg Tablet) 1 ea N/A QS [facility] Stop: 03/08/22 07:59 Last Admin: 02/06/22 10:14 Dose: Not Given Documented by: Nitroglycerin (Nitroglycerin Sl 0.4 Mg/Tab Tab) 0.4 mg SL Q5M PRN PRN Reason: Chest Pain Stop: 03/08/22 00:17 Pantoprazole Sodium (Pantoprazole 40 Mg Tab) 40 mg PO DAILYBB [facility] Stop: 03/08/22 08:59 Last Admin: 02/06/22 10:14 Dose: Not Given Documented by: Rosuvastatin Calcium (Rosuvastatin Calcium 20 Mg Tab) 20 mg PO DAILY [facility] Stop: 03/09/22 08:59 Timolol Maleate (Timolol Maleate 0.5% Op Soln 5 Ml Btl) 1 drops OPB QAM [facility] Stop: 03/08/22 08:59 Last Admin: 02/06/22 10:15 Dose: 1 drops Documented by: Vitamin D (Cholecalciferol 1,000 Units 25 Mcg Tab) 1,000 units PO QPM [facility] Stop: 03/08/22 20:59 (1) HTN (hypertension) Hypertension type: unspecified Qualified Code(s): I10 - Essential (primary) hypertension
[2022-02-06] MEDS ORDERED: CLOPIDOGREL BISULFATE 300 MG TAB ONE (12:42)
--- NOTE | 2022-02-06 12:52 | Post Anesthesia Assessment ---
Date of Service February 06, 2022 Post Sedation Assessment Vital Signs Temp Pulse Pulse Resp BP BP Pulse Ox 02/06/22 10:17 63 18 120/66 98 02/06/22 08:19 98.1 F 76 18 128/60 02/06/22 03:38 97.5 F L 53 L 18 122/81 96 02/06/22 00:30 51 L 02/06/22 00:20 97.7 F 54 L 18 157/81 H 99 02/06/22 00:18 02/06/22 00:11 97.7 F 57 L 18 157/81 H 98 02/05/22 21:40 56 L 12 97 02/05/22 21:30 62 17 97 02/05/22 21:20 58 L 21 96 02/05/22 21:10 57 L 21 96 02/05/22 21:00 57 L 18 137/69 97 02/05/22 20:50 55 L 24 98 02/05/22 20:40 63 21 97 02/05/22 20:32 53 L 15 147/59 H 98 02/05/22 20:30 55 L 15 147/59 H 96 02/05/22 20:20 57 L 17 96 02/05/22 20:10 56 L 22 96 02/05/22 20:00 61 19 147/87 H 98 02/05/22 19:50 60 19 97 02/05/22 19:40 61 17 98 02/05/22 19:30 66 21 99 02/05/22 19:26 63 17 98 02/05/22 19:15 98 02/05/22 19:14 59 L 22 98 02/05/22 17:46 97.9 F 58 L 18 196/85 H 99 Pulse Ox 02/06/22 10:17 02/06/22 08:19 02/06/22 03:38 02/06/22 00:30 02/06/22 00:20 02/06/22 00:18 99 02/06/22 00:11 02/05/22 21:40 02/05/22 21:30 02/05/22 21:20 02/05/22 21:10 02/05/22 21:00 02/05/22 20:50 02/05/22 20:40 02/05/22 20:32 02/05/22 20:30 02/05/22 20:20 02/05/22 20:10 02/05/22 20:00 02/05/22 19:50 02/05/22 19:40 02/05/22 19:30 02/05/22 19:26 02/05/22 19:15 02/05/22 19:14 02/05/22 17:46 Recovery Score Activity: Moves 4 extremities Respiration: Deep Breath/Cough Circulation: +/-20% PreAnes Value Consciousness: Arouseable (by name) Oxygen Saturation: > 92% On Room Air Discharge Sedation Level of Care: Fast Track Phase II Post Sedation Plan On clinical assessment, the patient appears to have tolerated the sedation without complications. Patient is recovering as anticipated. Patient will continue to be monitored by nursing and may be discharged when sedation discharge criteria are met per below protocol. Upon Completions of procedure up to 15 minutes continue every 5 minute vital signs and the P.A.R. score; then discharge to a Phase I or Fast Track to Phase II per the following guidelines: * Discharge Patient to appropriate Phase II area if PAR is 8 or greater or return to pre- procedure baseline. The post - procedure orders will be as directed. * If PAR score is less than 8 or not return to pre-procedure baseline then patient will follow Phase I monitoring till PAR is reached for Phase II. The Phase I may be done in procedure room or may call to secure a Phase I area. * If naloxone or flumazenil are used for reversal, hold in Phase I for contin ued monitoring from when last reversal dose was given for a minimum of 60 minutes or longer pending the nurse and/or physician discretion of patient condition before discharge to Phase II. Please call the Sedation Physician to re-evaluate and complete post-note for discharge to Phase II area. Do NOT discharge from procedure sedation or Phase 1 until post- sedation evaluation note is complete by procedure /sedation MD Sedation Discharge Instructions to be given to the patient at discharge to home.
--- NOTE | 2022-02-06 13:01 | Cardiac Catheterization ---
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 FFR assessment of early-mid LAD stenosis.) Lesion Segment Name: Mid LAD Culprit Artery: No Stenosis Prior to Rx (%): 70 Chronic Total Occlusion: No IVUS: Yes FFR: Yes Ratio: greater than 0.75% Pre-Procedure SOLANGE Flow: 3 Previously Treated Lesion: No Lesion Complexity: Non-High/Non-C Lesion Length (mm): 12 Thrombus Present: No Bifurcation Lesion: No Guidewire Across Lesion: Stenosis Post-Procedure (%): 0 Post-Procedure SOLANGE Flow: 3 Devices(s) Deployed: Yes Yes Intraprocedure Events Significant Disection: No Perforation: No Cardiac Cath Procedure Full Procedure Date February 06, 2022 Pre-Procedure Diagnosis Pre-Procedure Diagnosis: Non STEMI AUC Score AUC Score: 8 Post-Procedure Diagnosis Post-Procedure Diagnosis: Severe CAD and Successful PCI Procedure(s) Performed Procedure(s) Performed: Coronary Angiography, Drug Eluting Stent, IVUS and Fractional Flow [place] Legal Instructor Aly Quintana MD Automobile And Property Underwriter(s) Cr Estimated Blood Loss Estimated Blood Loss: 5cc Medication(s) Medication(s): Clopidogrel, Fentanyl, Heparin, Nicardipine, Nitroglycerin and Versed Summary of Findings Indication: NSTEMI Access: 6 Fr right radial artery Catheters: EBU 3.5 guide Findings: For full details of patient's coronary angiography please see cath report dictated by Dr. Greer. Briefly, patient found to have a subtotally occluded very distal PDA which was thought to be the culprit for presenting symptoms. Patient chest pain-free. PDA small and decision to medically manage. In addition found to have an intermediate mid LAD stenosis. Decision made to further evaluate LAD lesion with FFR. --FFR/IVUS-- Antithrombotic therapy: Heparin, clopidogrel Procedure: Left main cannulated with EBU 3.5 guide BMW wire passed across lesion into distal vessel ACIST FFR catheter placed to mid LAD Pd/Pa 0.92 FFR 0.77 [place] wire placed into second diagonal [place] IVUS catheter placed in the mid LAD. IVUS pullback revealed calcified severe disease just before takeoff of second diagonal (MLA 2.4 mm) Mid LAD stented with 3.0 x 15 mm Xience drug-eluting ending just at bifurcation with D2. Stent post-dilated with 3.5 noncompliant balloon to high atmospheres IC vasodilators administered for spasm Repeat IVUS revealed well apposed, well-expanded stent. No apparent edge complications Post procedure SOLANGE 3 flow, stent well expanded with minimal residual stenosis and no apparent cardiac complications. Arterial Closure: TR band Summary: 1. Multivessel coronary artery disease Mid LAD 60 to 70% (FFR 0.77) Very small, subtotal distal right PDA occlusion 2. Successful PCI of mid LAD with single drug-eluting stent (3.0 x 15 mm Xience; postdilated with 3.5 NC). Recommendations: To PCU for continued monitoring Loaded with clopidogrel 600 mg in Aviation Electronics Technician Recommend dual therapy with clopidogrel, anticoagulation for at least 1 year Consult cardiac Rehab Hemodynamics Rest Ao:: 118/59/82 Final Ao: 148/69/97 LV: -- Recommendations Recommendations: Management Recommendatons (Medical management of distal RPDA stenosis. FFR assessment of early-mid LAD stenosis.) Specimens Specimens: None Radiation Exposure (mGy) 3811 Contrast (mls) 150 Fluids (cc crystalloids) Fluids (cc crystalloids): 220 Drains Drains: N/A Anesthesia Moderate sedation. Start 1150. End 1242 sedation monitor: Ariela WILLARD Procedural Complication(s) None Disposition PCU I attest to the content of the Intraoperative Record and any orders documented therein. Any exceptions are noted below. [facility] Card Cath Procedure Codes Cardiac Catheterization Procedure 1: Cardiovascular Cath Procedures: 82252 (Doppler) Pressure Wire Therapeutic Services & Ancillary Proc Procedure 1: Cardiovascular Tx and Anc Procedures: 05596 IV Ultrasound (Coronary or Graft) Moderate Sedation Procedure 1: Sedation/Anesthesia: 26658 Mod Sedation by the same physician;Init15 Min Child Age 5 & Up Procedure 2: Sedation/Anesthesia: 11343 Mod Sedation by the same physician; Ea [id number] Minutes Stenting Procedure 1: Cardiovascular Stent Procedures: 53889 Perc transcatheter placement of intracoronary stent(s), with ang PG Care Time/CCT Total # of Minutes Spent Total Time Spent with Patient: Total time spent is greater than 50% in coordination of care (as documented) at patient's floor/unit and/or counseling patient:
[2022-02-06] MEDS ORDERED: SODIUM CHLORIDE 0.9% 1000ML 1,000 ML IV SCH (13:15)
[2022-02-06 16:35] LABS: Partial Thromboplastin Ratio 1.5
[2022-02-06] MEDS: HEPARIN SODIUM/DEXTROSE 25,000 UNITS/500 ML BAG IV SCH (17:02)
[2022-02-06] MEDS ORDERED: CYANOCOBALAMIN (B-12) 500 MCG TABLET PO SCH (21:00)
[2022-02-06] MEDS ORDERED: MAGNESIUM OXIDE 400 MG TAB PO SCH (21:00)
[2022-02-06] MEDS ORDERED: CHOLECALCIFEROL 1,000 UNITS 25 MCG TAB PO SCH (21:00)
[2022-02-06] MEDS ORDERED: ASCORBIC ACID 500 MG TAB PO SCH (21:00)
[2022-02-06] MEDS ORDERED: ASPIRIN 81 MG ECTAB PO SCH (21:00)
[2022-02-06] MEDS ORDERED: LATANOPROST 0.005% OP SOLN 2.5 ML BTL OPB SCH (21:00)
[2022-02-07 01:16] LABS: Partial Thromboplastin Ratio 1.7
[2022-02-07 01:39] LABS: Partial Thromboplastin Time 47.3 Seconds (21.0-31.0)
[2022-02-07] MEDS: PANTOprazole 40 MG TAB PO SCH (06:16)
[2022-02-07 06:39] LABS: Hematocrit (blood only) 37.4 % (37-47); Hemoglobin 12.7 g/dL (12.0-16.0); Mean Corpuscular Volume 94.2 fL (80-100); Mean Platelet Volume 10.6 fL (7.4-10.4); Platelet Count 159 K/uL (130-400); RDW Coefficient of Variation 12.3 % (11.5-14.5); RDW Standard Deviation 42.1 fL (36.4-46.3); Red Blood Count 3.97 M/uL (4.2-5.4); White Blood Count 5.41 K/uL (4.8-10.8)
[2022-02-07 06:55] LABS: Albumin Globulin Ratio 1.6 (0.9-2); Albumin Level 3.9 gm/dl (3.4-5.0); BUN Creatinine Ratio 16.7 (10-20); Bilirubin,Total 0.5 mg/dl (0.2-1.0); Calcium 8.7 mg/dl (8.5-10.1); Creatinine Clr Calc Pharmacy 114.9 ml/min; Est GFR (African American) 112.4 ml/min; Globulin 2.4 gm/dl (2.5-4.0); Magnesium 2.1 mg/dl (1.7-2.4); Potassium 3.7 mmol/L (3.5-5.1); Total Protein 6.3 gm/dl (6.0-8.3)
[2022-02-07 07:17] LABS: Troponin I 0.77 ng/ml (0-0.04)
[2022-02-07 07:53] LABS: Partial Thromboplastin Ratio 1.9
[2022-02-07 07:55] LABS: Partial Thromboplastin Time 51.5 Seconds (21.0-31.0)
[2022-02-07] MEDS: METOPROLOL SUCC 25MG EXT REL TAB PO SCH (08:13)
[2022-02-07] MEDS: ADVANCED PROBIOTIC 1250 MG CAPSULE PO SCH (08:15)
[2022-02-07] MEDS: TIMOLOL MALEATE 0.5% OP SOLN 5 ML BTL OPB SCH (08:15)
[2022-02-07] MEDS ORDERED: CLOPIDOGREL BISULFATE 75 MG TAB PO SCH (09:00)
[2022-02-07] MEDS ORDERED: ROSUVASTATIN CALCIUM 20 MG TAB PO SCH (09:00)
[2022-02-07] MEDS: HEPARIN SODIUM/DEXTROSE 25,000 UNITS/500 ML BAG IV SCH (10:33)
[2022-02-07] MEDS ORDERED: METOPROLOL SUCC 25MG EXT REL TAB PO SCH (11:30)
--- NOTE | 2022-02-07 11:44 | Cardiology Progress Note ---
Date of Service February 07, 2022 Assessment & Plan (1) Non-ST elevation (NSTEMI) myocardial infarction: (2) Paroxysmal atrial fibrillation: (3) Tobacco abuse: (4) Dyslipidemia: Plan: 60-year-old female with history of paroxysmal atrial fibrillation not anticoagulated presented to the hospital with NSTEMI. Cardiac catheterization revealing distal PDA occlusion (culprit lesion) too small for intervention. Her early mid LAD demonstrated a 60% stenosis which was significant per FFR. A drug-eluting stent was implanted without complication. She may be discharged on Eliquis and Plavix. Discontinue heparin this afternoon with first dose of Eliquis. Then continue 5 mg twice daily. Discussed importance of continuing clopidogrel uninterrupted for a minimum of 1 year post percutaneous intervention. Metoprolol reduced to 25 mg daily due to sinus bradycardia. Flecainide discontinued. Post cardiac catheterization activity restrictions listed below. Follow-up with Dr. Burrows in the outpatient clinic. ACTIVITY RECOMMENDATIONS: It is common to feel weak and fatigue for a few days. * Do not drive or operate any motorized equipment for the next three days. * Limit stair usage (2 or 3 trips a day only) for the next three days. * Do not lift anything heavier than 10 pounds for the next three days. * Do not engage in vigorous exercise or any sports for the next five days. * You may shower the day after your procedure, but do not immerse the area for three days. Cleanse the site gently with soap and water. SPECIAL CARE INSTRUCTIONS: * You may replace the pressure dressing or band-aid the morning after the procedure. * After your procedure, it is normal to have a small bruise or small lump at the site. Examine your site daily for any change in the bruise or lump, redness, swelling, drainage or numbness. Notify your doctor if any change. BLEEDING: * If there is a small amount of bleeding at the site, lie down and apply firm pressure with a clean cloth for ten minutes. When the bleeding stops, lie quietly keeping the procedure limb straight for six hours. Notify your doctor as soon as possible. * If the bleeding does not stop after ten minutes or if there is a large amount of bleeding or spurting, call 911 immediately. Continue to lie down and hold firm pressure until help arrives. SKIN IRRITATION: * You may experience some redness and/or swelling in the area where radiation was administered. If any skin irritation occurs, please contact your family physician. Admission and Anticipated Discharge Date Admission Date: February 05, 2022 Subjective Patient seen and examined at bedside. No recurrent chest discomfort overnight. Telemetry feels sinus rhythm without recurrent atrial fibrillation. Denies shortness of breath or palpitations. Intravenous heparin infusing. Cardiac catheterization performed yesterday without complication. A drug-eluting stent was implanted to the mid LAD. Distal PDA occlusion noted, likely cardioembolic event versus plaque rupture. The PDA is felt to be the culprit lesion however too small for intervention. Metoprolol on hold due to sinus bradycardia. Flecainide discontinued. Review of Systems Review of Systems: All systems reviewed & are unremarkable except as noted in Subjective Physical Exam Constitutional: well developed and well nourished; no acute distress ENMT: Mallampati Class: III Respiratory: normal respiratory effort; no respiratory distress, no labored breathing and no retractions Auscultation: lungs clear to auscultation bilaterally; no diminished lung sounds, no crackles, no rales, no rhonchi and no wheezes Cardiovascular: RRR, no murmur, no edema Rate/Rhythm: regular rate and regular rhythm Heart Sounds: normal S1 and normal S2; no murmur Vessels: femoral pulses present and radial pulses present; no JVD and no carotid bruit Extremities: no edema Gastrointestinal (Abdomen): Inspection/Auscultation: normal bowel sounds; abdomen not distended Percussion/Palpation: abdomen soft; abdomen nontender, no guarding and abdomen not rigid Neurologic: CN's II-XI intact bilaterally and moves all extremities; no focal motor deficits Motor/Sensory: no tremor Psychiatric: A+Ox3, euthymic affect Results & Data ([facility]) Vital Signs (Past 12 Hours) Vital Signs Temp Pulse Pulse Resp BP Pulse Ox Pulse Ox 02/07/22 07:17 36.7 C 59 L 18 122/67 92 02/07/22 03:13 37.3 C 63 18 137/76 95 02/07/22 00:18 98 02/07/22 00:00 58 L
[2022-02-07] MEDS ORDERED: APIXABAN 5 MG TABLET PO SCH ×2 (12:00→13:00)
[2022-02-07] MEDS ORDERED: HEPARIN DRIP~STOP ORDER ONE (13:00)
--- NOTE | 2022-02-07 13:34 | Electrocardiogram Report ---
Test Reason : Blood Pressure : / mmHG Vent. Rate : 061 BPM Atrial Rate : 061 BPM P-R Int : 196 ms QRS Dur : 092 ms QT Int : 404 ms P-R-T Axes : 072 -12 036 degrees QTc Int : 406 ms Normal sinus rhythm Nonspecific T wave abnormality Abnormal ECG When compared with ECG of 06-FEB-2022 06:34, No significant change was found Confirmed by Aly Braxton ([id number]) on 02/07/2022 1:34:23 PM Referred By: REFERRED SELF Confirmed By:Tang Braxton
--- NOTE | 2022-02-07 14:01 | Discharge Summary ---
Date of Service February 07, 2022 Discharge Data Allergies Allergy/AdvReac Type Severity Reaction Status Date / Time Sulfa (Sulfonamide Allergy Unknown CAN'T Verified 02/05/22 19:13 Antibiotics) REMEMBER doxycycline AdvReac Intermediate CAUSED Verified 02/05/22 19:13 A-FIB Consultations 02/05/22 20:44 ED Decision to Admit Stat 02/06/22 08:00 Consult Cardiology Routine 02/06/22 13:04 Consult Cardiac Rehabilitation Routine Procedures Performed Operation Date: 02/06/22 10:00 Actual Procedures p Cath, Left with Cors and Vent - Uche Greer DO s Cineradiography w/Routine Exam - Uche Greer DO s IVUS Coronary Single Vessel - Jimenez Quintana MD s Drug Eluting Stent SGl Vessel - Jimenez Quintana MD s Fraction Flow Dewy Rose SGL Ves - Jimenez Quintana MD s Ultrasound Vascular Access - Uche Greer DO Ordered Studies 02/06/22 10:13 CL Cath Imgs for PACS use only Routine CL Cath Imgs for PACS use only Routine 02/06/22 12:16 CL IVUS Coronary Single Vessel Routine Discharge Plan Discharge Items Reason For Visit: CHEST PAIN Follow-up/Referrals: Ilana Harris MD [Primary Care Provider] - (Date & Time 02/09/2022 2:00 PM Provider Ilana Harris MD [facility] ) Medications and DC Order Prescriptions: New Eliquis 5 mg tablet 5 mg PO BID Qty: 60 RF: 0 No Action omeprazole 20 mg capsule,delayed release(DR/EC) 20 mg PO QAM RF: 0 rosuvastatin 5 mg tablet 5 mg PO DAILY RF: 0 latanoprost 0.005 % drops 1 drp OPB HS RF: 0 timolol maleate 0.5 % drops 1 drp OPB QAM RF: 0 cholecalciferol (vitamin D3) [Vitamin D3] 25 mcg (1,000 unit) Capsule 25 mcg PO QPM RF: 0 Lactobacillus acidophilus Tablet,Chewable 1 tab PO DAILY RF: 0 cyanocobalamin (vitamin B-12) [Vitamin B-12] 1,000 mcg Tablet 1,000 mcg PO QPM RF: 0 flecainide 100 mg Tablet 100 mg PO DAILY@1900 RF: 0 magnesium 250 mg Tablet 250 mg PO QPM RF: 0 metoprolol succinate 25 mg Tablet Extended Release 24 Hr 25 mg PO BID RF: 0 ascorbic acid (vitamin C) [Vitamin C] 1,000 mg Tablet 1 g PO QPM RF: 0 aspirin 81 mg Tablet,Delayed Release (Dr/Ec) 81 mg PO QPM RF: 0 hydrochlorothiazide 25 mg tablet 25 mg PO QAM RF: 0 eplerenone 25 mg tablet 25 mg PO QAM RF: 0 flecainide 50 mg tablet 50 mg PO QAM RF: 0 Admission Data Admit Date/Time: 02/05/22 21:52 Attending Provider: Glenis Townsend Admit Provider: Sly Wall Primary Care Provider: Ilana Harris Other Providers: Syl Wall ; Misael Chappell ; José Manuel Macraio ; Jonatan Chamberlain ; Uche Greer ; Lamberto Jones ; Daren Brown ; Aurea Chang ; Kandy An ; Vesna Reyes ; Micheal Brown ; Zenon Milan
--- NOTE | 2022-02-08 17:03 | Electrocardiogram Report ---
Test Reason : Blood Pressure : / mmHG Vent. Rate : 049 BPM Atrial Rate : 049 BPM P-R Int : 180 ms QRS Dur : 098 ms QT Int : 474 ms P-R-T Axes : 048 -10 039 degrees QTc Int : 428 ms Sinus bradycardia Otherwise normal ECG When compared with ECG of 06-FEB-2022 06:34, No significant change was found Confirmed by Aly Braxton ([id number]) on 02/08/2022 5:03:18 PM Referred By: REFERRED SELF Confirmed By:Tang Braxton
== END 2022-02-07 15:25 | disposition home or self-care (01) ==
LOC: 2S 17:40 → ED 17:40 → SUATTDRO 21:52 → 2S 02-06 00:06

== ENCOUNTER 2022-03-11 21:52 | Inpatient (IN) ==
[2022-03-11] MEDS ORDERED: METOPROLOL TARTRATE 1 MG/ML VIAL IV STA ×2 (22:44→23:38)
--- NOTE | 2022-03-11 22:48 | Emergency Department Note ---
History of Present Illness General Chief complaint: Tachycardia Stated complaint: TACHYCARDIA, AFIB, CHEST DISCOMFORT Time Seen by Provider: 03/11/22 22:36 Source: patient and family Mode of arrival: ambulatory Limitations: no limitations History of Present Illness This patient is a 61-year-old female who comes in after having A. fib. She has a history of A. fib and is on Eliquis. She was recently admitted to the hospital had a stent placed on February 06 while she was in the hospital he did take off her flecainide and her heart rate was low so they decreased her metoprolol to once a day from twice a day and she also was off her blood pressure medications while she was here she said around 230 felt her heart was racing she had minimal chest pain at the time but denies any now occasional feels short of breath no lightheadedness or dizziness. She is on Plavix and Eliquis. No blood or melena stool. Denies any trauma or injury. She has had ablation in the past. Home Medications Medication Instructions Recorded Confirmed Type cyanocobalamin (vitamin B-12) 1,000 mcg PO QPM 06/07/19 03/11/22 History 1,000 mcg tablet (Vitamin B-12) magnesium 250 mg tablet 250 mg PO QPM 06/07/19 03/11/22 History cholecalciferol (vitamin D3) 25 25 mcg PO QPM 05/29/20 03/11/22 History mcg (1,000 unit) capsule (Vitamin D3) latanoprost 0.005 % eye drops 1 drp OPB HS 05/29/20 03/11/22 History rosuvastatin 5 mg tablet 5 mg PO DAILY 05/29/20 03/11/22 History timolol maleate 0.5 % eye drops 1 drp OPB QAM 05/29/20 03/11/22 History ascorbic acid (vitamin C) 1,000 mg 1 g PO QPM 02/05/22 03/11/22 History tablet (Vitamin C) apixaban 5 mg tablet (Eliquis) 5 mg PO BID #60 tab 02/07/22 03/11/22 Rx metoprolol succinate 25 mg 25 mg PO DAILY 30 Days #30 tab 02/07/22 03/11/22 Rx tablet,extended release 24 hr clopidogrel 75 mg tablet 75 mg PO QAM 03/11/22 03/11/22 History guar gum 1 tbsp PO DAILY 03/11/22 03/11/22 History lisinopril 2.5 mg tablet 2.5 mg PO QAM 03/11/22 03/11/22 History Allergies Allergy/AdvReac Type Severity Reaction Status Date / Time Sulfa (Sulfonamide Allergy Unknown CAN'T Verified 03/11/22 22:38 Antibiotics) REMEMBER doxycycline AdvReac Intermediate CAUSED Verified 03/11/22 22:38 A-FIB Past Med/Surg History Medical History (Updated 03/12/22 @ 01:43 by Ankush Hernandez MD) A-fib Diverticulosis HTN (hypertension) Family History Other No significant family history Social History Smoking Status: Former smoker Tobacco Type: Cigarettes Cigarettes Per Day: 7; Second Hand Exposure: No; Hx Alcohol Use: No Hx Substance Use: No Preferred Language: Portuguese Communication Ability: Effective 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: No Beliefs That Will Affect Care: None Current Living Situation: Significant Other 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 Mental 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 Feels Safe at Home: Yes Assistive Devices: None Review of Systems A total of 10 systems reviewed and were otherwise negative Physical Exam Vital Signs Vital Signs - 24 hr 03/11/22 21:54 03/11/22 22:41 03/11/22 23:11 Temperature 36.8 C Temperature Source Temporal Artery Scan Pulse Rate 106 H 131 H Pulse Rate [Left Finger] 128 H Pulse Rhythm [Left Finger] Respiratory Rate 18 22 Respiratory Effort / Characteristics Non-Labored Spontaneous Non-Labored Spontaneous Respiratory Depth Normal Normal Blood Pressure 148/89 H 130/81 Blood Pressure [Left Arm] 130/81 Blood Pressure Mean 108 Blood Pressure Mean [Left Arm] 97 Blood Pressure Position Sitting Blood Pressure Position [Left Arm] Pulse Oximetry 96 96 Oxygen Delivery Method Room Air Room Air Sepsis Recent Fever Within 48 Hours No Sepsis New/Unexplained Change in Mental Status N/A Sepsis Action Taken by Nursing No Action Required 03/11/22 23:50 03/11/22 23:54 03/12/22 00:58 Temperature Temperature Source Pulse Rate 115 H Pulse Rate [Left Finger] 115 H 115 H Pulse Rhythm [Left Finger] Irregular Respiratory Rate 21 20 Respiratory Effort / Characteristics Non-Labored Spontaneous Non-Labored Spontaneous Respiratory Depth Normal Normal Blood Pressure 139/89 Blood Pressure [Left Arm] 139/89 107/89 Blood Pressure Mean Blood Pressure Mean [Left Arm] 105 95 Blood Pressure Position Blood Pressure Position [Left Arm] Sitting Sitting Pulse Oximetry 95 97 Oxygen Delivery Method Room Air Room Air Sepsis Recent Fever Within 48 Hours Sepsis New/Unexplained Change in Mental Status Sepsis Action Taken by Nursing 03/12/22 01:40 Temperature Temperature Source Pulse Rate 136 H Pulse Rate [Left Finger] Pulse Rhythm [Left Finger] Respiratory Rate Respiratory Effort / Characteristics Respiratory Depth Blood Pressure Blood Pressure [Left Arm] Blood Pressure Mean Blood Pressure Mean [Left Arm] Blood Pressure Position Blood Pressure Position [Left Arm] Pulse Oximetry Oxygen Delivery Method Sepsis Recent Fever Within 48 Hours Sepsis New/Unexplained Change in Mental Status Sepsis Action Taken by Nursing General: Well developed well nourished middle-age female who appears in no acute distress, breathing comfortably on room air. Normal speech HEENT: Normal cephalic atraumatic. Pupils are equal round and reactive to light. Extraocular movements are intact. Oropharynx is pink with moist mucous membranes. No swelling of the mouth lips or tongue. Neck: Supple with a midline trachea. No meningeal signs or stiffness, no JVD or bruits. No Stridor. Chest: Clear to auscultation bilaterally. No wheezes or rhonchi. No increased work of breathing. Heart: Irregularly irregular and rhythm without murmurs or gallops. On the monitor she is about 130 Abdomen: Soft nontender, nondistended without rebound guarding or rigidity. Extremities: No cyanosis clubbing or edema. No calf tenderness or assymetry Spine/Back. Non tender to palpation. No CVA tenderness Skin: Good turgor without rashes. Neurologic exam: Cranial nerves two through 12 are intact. Motor and sensation are intact and symmetrical throughout. Course Administered Medications Lactated Ringer's (Lr) 1,000 mls @ 80 mls/hr IV .[id number] ONE Stop: 03/12/22 13:48 Last Admin: 03/12/22 01:28 Dose: 80 mls/hr Documented by: [id number] Discontinued Medications Digoxin 250 mcg/ Syringe 10 mls @ 2 mls/min IV NOW ONE Stop: 03/12/22 01:34 Last Admin: 03/12/22 01:40 Dose: 2 mls/min Documented by: [id number] Metoprolol Tartrate (Metoprolol Tartrate 1 Mg/Ml Vial) 3 mg IV NOW STA; Protocol Stop: 03/11/22 22:45 Last Admin: 03/11/22 23:11 Dose: 3 mg Documented by: [id number] Metoprolol Tartrate (Metoprolol Tartrate 1 Mg/Ml Vial) 3 mg IV NOW STA; Protocol Stop: 03/11/22 23:39 Last Admin: 03/11/22 23:54 Dose: 3 mg Documented by: [id number] Potassium Chloride (Potassium Chloride Crtab 20 Meq Tabcr) 40 meq PO NOW STA Stop: 03/12/22 01:10 Last Admin: 03/12/22 01:28 Dose: 40 meq Documented by: [id number] Medical Decision Making Differential Diagnosis Rapid A. fib, acute coronary syndrome, arrhythmia, electrolyte or metabolic abnormality Medical Records Attestation: I reviewed the patient's medical records. Home Medications Current Medication List: was personally reviewed by me Laboratory Data Attestation: I reviewed the patient's lab results. Result diagrams: 03/11/22 22:57 03/11/22 22:57 Lab Results 03/11/22 03/11/22 03/11/22 Range/Units 22:57 22:57 22:57 WBC 7.10 (4.8-10.8) K/uL RBC 4.08 L (4.2-5.4) M/uL Hgb 13.4 (12.0-16.0) g/dL Hct 38.9 (37-47) % MCV 95.3 (80-100) fL MCH 32.8 (25-34) pg MCHC 34.4 (32-36) g/dL RDW Std Deviation 43.6 (36.4-46.3) fL RDW Coeff of Adeel 12.7 (11.5-14.5) % Plt Count 217 (130-400) K/uL MPV 10.3 (7.4-10.4) fL Immature Gran % (Auto) 0.3 % Neut % (Auto) 60.9 % Lymph % (Auto) 26.6 % [place] % (Auto) 9.9 % Eos % (Auto) 2.0 % Baso % (Auto) 0.3 % Neut # (Auto) 4.33 (1.4-6.5) K/uL Lymph # (Auto) 1.89 (1.2-3.4) K/uL [place] # (Auto) 0.70 H (0.11-0.59) K/uL Eos # (Auto) 0.14 (0-0.5) K/uL Baso # (Auto) 0.02 (0-0.2) K/uL Immature Gran # (Auto) 0.02 (0.00-0.02) K/uL PT 10.6 (9.0-12.0) Seconds INR 1.0 (0.9-1.1) APTT 27.3 (21.0-31.0) Seconds PTT Ratio 1.0 Sodium (136-145) mmol/L Potassium (3.5-5.1) mmol/L Chloride (98-107) mmol/L Carbon Dioxide (21-32) mmol/L Anion Gap (3-11) BUN (6-23) mg/dl Creatinine (0.6-1.2) mg/dl Est Cr Clr Drug Dosing ml/min Est GFR ( Amer) ml/min Est GFR (Non-Af Amer) ml/min BUN/Creatinine Ratio (10-20) Glucose (70-99(Fasting)) mg/dl Calcium (8.5-10.1) mg/dl Magnesium (1.7-2.4) mg/dl Total Bilirubin (0.2-1.0) mg/dl AST (13-39) U/L ALT (7-52) U/L Alkaline Phosphatase (34-104) U/L Troponin I High Sens 29.7 H (0-14) pg/ml Total Protein (6.0-8.3) gm/dl Albumin (3.4-5.0) gm/dl Globulin (2.5-4.0) gm/dl Albumin/Globulin Ratio (0.9-2) Lipase (11-82) U/L SARS-CoV-2, RNA, NAAT (NEGATIVE) 03/11/22 03/12/22 03/12/22 Range/Units 22:57 00:05 00:43 WBC (4.8-10.8) K/uL RBC (4.2-5.4) M/uL Hgb (12.0-16.0) g/dL Hct (37-47) % MCV (80-100) fL MCH (25-34) pg MCHC (32-36) g/dL RDW Std Deviation (36.4-46.3) fL RDW Coeff of Adeel (11.5-14.5) % Plt Count (130-400) K/uL MPV (7.4-10.4) fL Immature Gran % (Auto) % Neut % (Auto) % Lymph % (Auto) % [place] % (Auto) % Eos % (Auto) % Baso % (Auto) % Neut # (Auto) (1.4-6.5) K/uL Lymph # (Auto) (1.2-3.4) K/uL [place] # (Auto) (0.11-0.59) K/uL Eos # (Auto) (0-0.5) K/uL Baso # (Auto) (0-0.2) K/uL Immature Gran # (Auto) (0.00-0.02) K/uL PT (9.0-12.0) Seconds INR (0.9-1.1) APTT (21.0-31.0) Seconds PTT Ratio Sodium 142 (136-145) mmol/L Potassium 3.6 (3.5-5.1) mmol/L Chloride 110 H (98-107) mmol/L Carbon Dioxide 24 (21-32) mmol/L Anion Gap 8 (3-11) BUN 15 (6-23) mg/dl Creatinine 0.66 (0.6-1.2) mg/dl Est Cr Clr Drug Dosing 103.2 ml/min Est GFR ( Amer) 109.0 ml/min Est GFR (Non-Af Amer) 94.0 ml/min BUN/Creatinine Ratio 22.7 H (10-20) Glucose 117 H (70-99(Fasting)) mg/dl Calcium 9.5 (8.5-10.1) mg/dl Magnesium 2.3 (1.7-2.4) mg/dl Total Bilirubin 0.4 (0.2-1.0) mg/dl AST 17 (13-39) U/L ALT 20 (7-52) U/L Alkaline Phosphatase 50 (34-104) U/L Troponin I High Sens 28.5 H (0-14) pg/ml Total Protein 7.2 (6.0-8.3) gm/dl Albumin 4.4 (3.4-5.0) gm/dl Globulin 2.8 (2.5-4.0) gm/dl Albumin/Globulin Ratio 1.6 (0.9-2) Lipase 20 (11-82) U/L SARS-CoV-2, RNA, NAAT NEGATIVE (NEGATIVE) Imaging Data Attestation: I personally reviewed and interpreted this imaging study as follows: My Impression: Chest x-rayno acute infiltrate, failure, pneumothorax seen. ECG Data Attestation: I personally reviewed and interpreted this ECG as follows: Indication: + other (Palpitations) Rate (beats per minute): 120 Rhythm: + atrial fibrillation ECG Intervals/blocks: + Normal QRS, + Normal QT and + Normal [place] ECG [place]: + Normal ECG ST segments: + Normal ST segments ECG Findings: no PACs or no PVCs Comparison ECG Date: from (02/07/22) Change: the following changes noted (a fib has replaced normal sinus) MDM Narrative This patient comes in as described above she has a history of A. fib and is now in rapid A. fib. She had recent change in a lot of her medications which is likely contributing to this. She has had metoprolol before. She said 1 time her heart rate went low at this time to start small with just 3 mg IV. Multiple blood testing was obtained. With the 3 mg her heart rate is trending downward it is in the 1 teens primarily she was given additional 3 mg of Lopressor and is having numbers down to the 90s at times but averaging 100-110s and sees be doing well. Her initial troponin on the high sensitive troponin is mildly elevated. Follow-up troponin was decreased and therefore has no evidence of acute ischemia thus far. I did consult Dr. Carrillo as I do think she needs to be admitted for further rate control and medications and further cardiac work-up/rule out. Her COVID testing was negative Continuous cardiac monitoring: Orders placed in EMR for continuous cardiac monitoring. Duncan interpretation patient noted to be in rapid A. fib with a rate of 130 initially. Impression & Plan Atrial fibrillation with rapid ventricular response, Palpitations, Lab test negative for COVID-19 virus, History of coronary artery disease Discharge Plan Visit Data Chief Complaint: Tachycardia Stated Complaint: TACHYCARDIA, AFIB, CHEST DISCOMFORT ED Provider: Ankush Hernandez Discharge Problem: Atrial fibrillation with rapid ventricular response, Palpitations, Lab test negative for COVID-19 virus, History of coronary artery disease Forms Stand Alone Forms: My [facility] [facility] Prescriptions Prescriptions: No Action rosuvastatin 5 mg tablet 5 mg PO DAILY RF: 0 latanoprost 0.005 % drops 1 drp OPB HS RF: 0 timolol maleate 0.5 % drops 1 drp OPB QAM RF: 0 cholecalciferol (vitamin D3) [Vitamin D3] 25 mcg (1,000 unit) Capsule 25 mcg PO QPM RF: 0 cyanocobalamin (vitamin B-12) [Vitamin B-12] 1,000 mcg Tablet 1,000 mcg PO QPM RF: 0 magnesium 250 mg Tablet 250 mg PO QPM RF: 0 ascorbic acid (vitamin C) [Vitamin C] 1,000 mg Tablet 1 g PO QPM RF: 0 Eliquis 5 mg tablet 5 mg PO BID Qty: 60 RF: 0 metoprolol succinate 25 mg Tablet Extended Release 24 Hr 25 mg PO DAILY 30 Days Qty: 30 RF: 0 clopidogrel 75 mg tablet 75 mg PO QAM RF: 0 Benefiber (guar gum) Packet 1 tbsp PO DAILY RF: 0 lisinopril 2.5 mg tablet 2.5 mg PO QAM RF: 0 Referrals Referrals: Ilana Harris MD [Primary Care Provider] -
[2022-03-11 23:07] LABS: Hematocrit (blood only) 38.9 % (37-47); Hemoglobin 13.4 g/dL (12.0-16.0); Mean Corpuscular Hemoglobin 32.8 pg (25-34); Mean Corpuscular Hgb Conc 34.4 g/dL (32-36); Mean Corpuscular Volume 95.3 fL (80-100); Mean Platelet Volume 10.3 fL (7.4-10.4); Platelet Count 217 K/uL (130-400); RDW Coefficient of Variation 12.7 % (11.5-14.5); RDW Standard Deviation 43.6 fL (36.4-46.3); Red Blood Count 4.08 M/uL (4.2-5.4)
[2022-03-11 23:16] LABS: Partial Thromboplastin Time 27.3 Seconds (21.0-31.0); Prothrombin Time 10.6 Seconds (9.0-12.0)
[2022-03-11 23:38] LABS: Basophils # (auto) 0.02 K/uL (0-0.2); Basophils % (auto) 0.3 %; Eosinophils # (auto) 0.14 K/uL (0-0.5); Immature Granulocytes # (auto) 0.02 K/uL (0.00-0.02); Immature Granulocytes % (auto) 0.3 %; Lymphocytes # (auto) 1.89 K/uL (1.2-3.4); Lymphocytes % (auto) 26.6 %; Monocytes % (auto) 9.9 %; Neutrophils # (auto) 4.33 K/uL (1.4-6.5); Neutrophils % (auto) 60.9 %
[2022-03-12 00:21] LABS: Albumin Globulin Ratio 1.6 (0.9-2); Albumin Level 4.4 gm/dl (3.4-5.0); BUN Creatinine Ratio 22.7 (10-20); Bilirubin,Total 0.4 mg/dl (0.2-1.0); Calcium 9.5 mg/dl (8.5-10.1); Creatinine Clr Calc Pharmacy 103.2 ml/min; Globulin 2.8 gm/dl (2.5-4.0); Magnesium 2.3 mg/dl (1.7-2.4); Potassium 3.6 mmol/L (3.5-5.1); Total Protein 7.2 gm/dl (6.0-8.3)
[2022-03-12] MEDS ORDERED: POTASSIUM CHLORIDE CRTAB 20 MEQ TABCR PO STA (01:09)
[2022-03-12] MEDS ORDERED: LACTATED RINGER'S 1,000 ML IV ONE (01:19)
[2022-03-12] MEDS ORDERED: DIGOXIN 250 MCG in SYRINGE 9 ML IV ONE ×2 (01:30→03:30)
[2022-03-12 01:47] LABS: Thyroid Stimulating Hormone 4.776 uIu/ml (0.300-4.500)
[2022-03-12] MEDS ORDERED: METOPROLOL SUCC 25MG EXT REL TAB PO STA (01:56)
--- NOTE | 2022-03-12 01:57 | History & Physical Report ---
Date of Service March 12, 2022 Assessment & Plan (1) Atrial fibrillation with rapid ventricular response: Plan: Recurrent A. fib hx PAF/Afl status post ablation On Eliquis hx CAD status post stent hypertension, BP on the lower side hyperlipidemia on statin Rx mood disorder, at baseline YFN CPAP noncompliance Hyperglycemia rule out DM past tobacco abuse OBS PCU Facilitate home beta-george, may need dose titration if BP allows IV digoxin for rate control now given borderline BP IVF Cardiology consult Re: Recurrent A. fib N.p.o. until patient seen by cardiology in a.m. May need cardioversion if spontaneous conversion not achieved. Check hemoglobin A1c DVT prophylaxis. Eliquis Full code Patient contemplating switching to [place] [facility] providers given dissatisfaction with previous interactions with some [facility] providers. Text document was generated using [employer] voice recognition software. It may contain grammatical or spelling errors. Kindly contact undersigned for clarification of any documentation item in question. ADDENDUM : 4:25 AM Notified by PERSONAL LINES ACCOUNT EXECUTIVE of patient conversion to NSR. History of Present Illness Chief Complaint: Chest discomfort, A. fib Primary Care Provider: Ilana Harris MD History obtained from patient, family, and records. Medical history significant for CAD status post stent, paroxysmal A. fib/atrial flutter status post ablation on Eliquis, hypertension, hyperlipidemia, NAFLD, mood disorder, YFN CPAP noncompliance, past tobacco abuse. Last confinement last month for non-ST elevation NH. Multivessel CAD on diagnostic cardiac catheterization. PCI of mid LAD lesion with drug-eluting stent. Patient discharged on Plavix. Patient flecainide switched to metoprolol during confinement as well. Yesterday afternoon, patient noted palpitations, racing heartbeat associated with left-sided chest discomfort without shortness of breath or diaphoresis. Episode similar to A. fib episodes as per patient. No unusual cough symptoms. Some family stress with recent in the family. Patient compliant with home medications. No fluid retention. Patient brought to the ER for evaluation. Noted to be in rapid A. fib. Heart rate 130s at the highest. IV Lopressor administered at the ER. 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 Allergies Allergy/AdvReac Type Severity Reaction Status Date / Time Sulfa (Sulfonamide Allergy Unknown CAN'T Verified 03/11/22 22:38 Antibiotics) REMEMBER doxycycline AdvReac Intermediate CAUSED Verified 03/11/22 22:38 A-FIB Home Medications Medication Instructions Recorded Confirmed Type cyanocobalamin (vitamin B-12) 1,000 mcg PO QPM 06/07/19 03/11/22 History 1,000 mcg tablet (Vitamin B-12) magnesium 250 mg tablet 250 mg PO QPM 06/07/19 03/11/22 History cholecalciferol (vitamin D3) 25 25 mcg PO QPM 05/29/20 03/11/22 History mcg (1,000 unit) capsule (Vitamin D3) latanoprost 0.005 % eye drops 1 drp OPB HS 05/29/20 03/11/22 History rosuvastatin 5 mg tablet 5 mg PO DAILY 05/29/20 03/11/22 History timolol maleate 0.5 % eye drops 1 drp OPB QAM 05/29/20 03/11/22 History ascorbic acid (vitamin C) 1,000 mg 1 g PO QPM 02/05/22 03/11/22 History tablet (Vitamin C) apixaban 5 mg tablet (Eliquis) 5 mg PO BID #60 tab 02/07/22 03/11/22 Rx metoprolol succinate 25 mg 25 mg PO DAILY 30 Days #30 tab 02/07/22 03/11/22 Rx tablet,extended release 24 hr clopidogrel 75 mg tablet 75 mg PO QAM 03/11/22 03/11/22 History guar gum 1 tbsp PO DAILY 03/11/22 03/11/22 History lisinopril 2.5 mg tablet 2.5 mg PO QAM 03/11/22 03/11/22 History Past Med/Surg History Medical History (Updated 03/12/22 @ 01:43 by Ankush Hernandez MD) A-fib Diverticulosis HTN (hypertension) Family History Other No significant family history Social History Smoking Status: Former smoker Tobacco Type: Cigarettes Cigarettes Per Day: 7; Second Hand Exposure: No; Hx Alcohol Use: No Hx Substance Use: No Preferred Language: Chadian Communication Ability: Effective Paper Stacker Required: No Beliefs That Will Affect Care: None Current Living Situation: Other Current Living Situation Comment: lives w/ friend - viet navarro 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 Mental Health Other Information That Helps Us Care for You: No Feels Safe at Home: Yes Safety Concerns: Feels Safe At This Time Assistive Devices: Glasses Assistive Devices Comment: partial and tooth implant Review of Systems Review of Systems: As per HPI, all other systems reviewed and negative Physical Exam Physical Exam: GENERAL: Comfortable, pleasant, morbidly obese, no respiratory distress SKIN: Normal color, warm HEENT: Bespectacled, [place] palpebral conjunctivae, no ptosis, moist buccal mucosa NECK : Supple, short neck, no tenderness CHEST : CTA, no tenderness HEART : Irregular, no obvious murmurs ABDOMEN: Some distention, nontender EXTREMITIES : Minimal LE swelling, no LE tenderness, no other conspicuous deformities noted NEUROLOGIC : Coherent, no facial asymmetry, no other gross focality Results & Data Results & Data ([facility]) Vital Signs (Past 12 Hours) Vital Signs Temp Pulse Pulse Resp BP BP Pulse Ox 03/12/22 01:40 136 H 03/12/22 00:58 115 H 20 107/89 97 03/11/22 23:54 115 H 139/89 03/11/22 23:50 115 H 21 139/89 95 03/11/22 23:11 131 H 130/81 03/11/22 22:41 128 H 22 130/81 96 03/11/22 21:54 36.8 C 106 H 18 148/89 H 96 Laboratory Results Laboratory Results WBC 7.10 K/uL (4.8-10.8) 03/11/22 22:57 RBC 4.08 M/uL (4.2-5.4) L 03/11/22 22:57 Hgb 13.4 g/dL (12.0-16.0) 03/11/22 22:57 Hct 38.9 % (37-47) 03/11/22 22:57 MCV 95.3 fL (80-100) 03/11/22 22:57 MCH 32.8 pg (25-34) 03/11/22 22:57 MCHC 34.4 g/dL (32-36) 03/11/22 22:57 RDW Std Deviation 43.6 fL (36.4-46.3) 03/11/22 22:57 RDW Coeff of Adeel 12.7 % (11.5-14.5) 03/11/22 22:57 Plt Count 217 K/uL (130-400) 03/11/22 22:57 MPV 10.3 fL (7.4-10.4) 03/11/22 22:57 Immature Gran % (Auto) 0.3 % 03/11/22 22:57 Neut % (Auto) 60.9 % 03/11/22 22:57 Lymph % (Auto) 26.6 % 03/11/22 22:57 [place] % (Auto) 9.9 % 03/11/22 22:57 Eos % (Auto) 2.0 % 03/11/22:57 Baso % (Auto) 0.3 % 03/11/22 22:57 Neut # (Auto) 4.33 K/uL (1.4-6.5) 03/11/22 22:57 Lymph # (Auto) 1.89 K/uL (1.2-3.4) 03/11/22 22:57 [place] # (Auto) 0.70 K/uL (0.11-0.59) H 03/11/22 22:57 Eos # (Auto) 0.14 K/uL (0-0.5) 03/11/22 22:57 Baso # (Auto) 0.02 K/uL (0-0.2) 03/11/22 22:57 Immature Gran # (Auto) 0.02 K/uL (0.00-0.02) 03/11/22 22:57 PT 10.6 Seconds (9.0-12.0) 03/11/22 22:57 INR 1.0 (0.9-1.1) 03/11/22 22:57 APTT 27.3 Seconds (21.0-31.0) 03/11/22 22:57 PTT Ratio 1.0 03/11/22 22:57 Sodium 142 mmol/L (136-145) 03/11/22 22:57 Potassium 3.6 mmol/L (3.5-5.1) 03/11/22 22:57 Chloride 110 mmol/L (98-107) H 04/24/22 22:57 Carbon Dioxide 24 mmol/L (21-32) 03/11/22 22:57 Anion Gap 8 (3-11) 03/11/22 22:57 BUN 15 mg/dl (6-23) 03/11/22 22:57 Creatinine 0.66 mg/dl (0.6-1.2) 03/11/22 22:57 Est Cr Clr Drug Dosing 103.2 ml/min 03/11/22 22:57 Est GFR ( Amer) 109.0 ml/min 03/11/22 22:57 Est GFR (Non-Af Amer) 94.0 ml/min 03/11/22 22:57 BUN/Creatinine Ratio 22.7 (10-20) H 03/11/22 22:57 Glucose 117 mg/dl (70-99(Fasting)) H 03/11/22 22:57 Calcium 9.5 mg/dl (8.5-10.1) 03/11/22 22:57 Magnesium 2.3 mg/dl (1.7-2.4) 03/11/22 22:57 Total Bilirubin 0.4 mg/dl (0.2-1.0) 03/11/22 22:57 AST 17 U/L (13-39) 03/11/22 22:57 ALT 20 U/L (7-52) 03/11/22 22:57 Alkaline Phosphatase 50 U/L (34-104) 03/11/22 22:57 Troponin I High Sens 28.5 pg/ml (0-14) H 03/12/22 00:43 Total Protein 7.2 gm/dl (6.0-8.3) 03/11/22 22:57 Albumin 4.4 gm/dl (3.4-5.0) 03/11/22 22:57 Globulin 2.8 gm/dl (2.5-4.0) 03/11/22 22:57 Albumin/Globulin Ratio 1.6 (0.9-2) 03/11/22 22:57 Lipase 20 U/L (11-82) 03/11/22 22:57 TSH 4.776 uIu/ml (0.300-4.500) H 03/11/22 22:57 SARS-CoV-2, RNA, NAAT NEGATIVE (NEGATIVE) 03/12/22 00:05 Diagnostic Findings Chest x-ray as per my interpretation atelectasis, cardiomegaly EKG as per my interpretation : Rate 120, A. fib, normal axis, T wave abnormalities septal leads
[2022-03-12 02:46] LABS: T4 Free Thyroxine 0.97 ng/dl (0.61-1.60)
[2022-03-12] MEDS ORDERED: MoRPHine SULFATE 2 MG/ML CARP IV PRN (03:10)
[2022-03-12] MEDS ORDERED: LORazepam 2 MG/1 ML VIAL IV PRN (03:10)
[2022-03-12] MEDS ORDERED: traMADol HCL 50 MG TABLET PO PRN (03:10)
[2022-03-12] MEDS ORDERED: ACETAMINOPHEN 325 MG TAB PO PRN (03:10)
[2022-03-12] MEDS ORDERED: NITROGLYCERIN SL 0.4 MG/TAB TAB SL PRN (03:10)
[2022-03-12] MEDS ORDERED: PROMETHAZINE HCL 12.5 MG in SODIUM CHLORIDE 0.9% 50 ML IV PRN (03:10)
[2022-03-12 07:35] LABS: Basophils # (auto) 0.01 K/uL (0-0.2); Basophils % (auto) 0.2 %; Eosinophils % (auto) 1.8 %; Hemoglobin 12.6 g/dL (12.0-16.0); Lymphocytes # (auto) 1.34 K/uL (1.2-3.4); Lymphocytes % (auto) 23.7 %; Mean Corpuscular Hemoglobin 32.6 pg (25-34); Mean Corpuscular Hgb Conc 34.1 g/dL (32-36); Mean Corpuscular Volume 95.6 fL (80-100); Mean Platelet Volume 10.4 fL (7.4-10.4); Monocytes # (auto) 0.45 K/uL (0.11-0.59); Neutrophils # (auto) 3.76 K/uL (1.4-6.5); Neutrophils % (auto) 66.3 %; Platelet Count 179 K/uL (130-400); RDW Coefficient of Variation 12.7 % (11.5-14.5); RDW Standard Deviation 43.8 fL (36.4-46.3); Red Blood Count 3.87 M/uL (4.2-5.4); White Blood Count 5.66 K/uL (4.8-10.8)
[2022-03-12 07:35] LABS: Estimated Average Glucose 120 mg/dl; Hemoglobin A1C 5.8 % (4.5-5.6)
[2022-03-12 07:57] LABS: BUN Creatinine Ratio 22.8 (10-20); Calcium 9.1 mg/dl (8.5-10.1); Creatinine Clr Calc Pharmacy 118.1 ml/min; Est GFR (African American) 114.3 ml/min; Est GFR (Non-African American) 98.7 ml/min; Magnesium 2.2 mg/dl (1.7-2.4); Potassium 4.2 mmol/L (3.5-5.1)
[2022-03-12] MEDS: APIXABAN 5 MG TABLET PO SCH ×2 (08:42→20:29)
[2022-03-12] MEDS: lisinopril 2.5 MG TAB PO SCH (08:42)
[2022-03-12] MEDS: ROSUVASTATIN CALCIUM 5 MG TAB PO SCH (08:42)
[2022-03-12] MEDS: CLOPIDOGREL BISULFATE 75 MG TAB PO SCH (08:43)
[2022-03-12] MEDS: TIMOLOL MALEATE 0.5% OP SOLN 5 ML BTL OPB SCH (08:44)
--- NOTE | 2022-03-12 08:51 | XRay Report ---
XR chest 1V portable CLINICAL HISTORY: Atypical chest pain TECHNIQUE: Single frontal radiograph of the chest was obtained. Comparison: Comparison is made to chest radiograph 02/05/2022 FINDINGS: No lines and tubes are seen. Cardiomegaly is noted. The lungs are clear. No evidence of pleural effus ion or pneumothorax. IMPRESSION: No acute chest disease. ACT 112: Negative or not required by law. Electronically signed by: Israel Meza M.D. 03/12/2022 8:50 AM
[2022-03-12] MEDS: METOPROLOL SUCC 25MG EXT REL TAB PO SCH (10:09)
[2022-03-12] MEDS: SOTALOL HCL 80 MG TAB PO SCH ×2 (10:17→20:29)
--- NOTE | 2022-03-12 10:17 | Cardiology Consultation ---
Date of Consultation March 12, 2022 Assessment & Plan (1) Atrial fibrillation with rapid ventricular response: (2) CAD (coronary artery disease), [place] coronary artery: (3) Presence of stent in LAD coronary artery: I had a long discussion with the patient regarding the natural history and pathophysiology of paroxysmal atrial fibrillation. Flecainide recently discontinued due to diagnosis of coronary disease/ NSTEMI s/p NEYDA to LAD. Recommend initiation of sotalol antiarrhythmic therapy. Risk versus benefit reviewed. Baseline QTc within normal range. Patient agreeable to sotalol loading. She will be discharged home after 5 doses if there is no significant bradycardia, and QTc remains within acceptable range. Continue other cardiovascular medications including Eliquis, clopidogrel, metoprolol, lisinopril, and rosuvastatin as previously ordered. History of Present Illness Reason for Consultation: rapid atrial fibrillation Requesting Physician: Dr. Stu Gorman Attending Physician: Glenis Townsend MD History of Present Illness 61-year-old female presents to the emergency department with palpitations, tachycardia, and chest discomfort. Atrial fibrillation with rapid ventricular response recorded on admission. She spontaneously converted to sinus rhythm last evening at approximately 3:30 AM. She remains in sinus rhythm this morning. Hospitalized in January with NSTEMI. Cardiac catheterization revealing distal PDA occlusion (culprit lesion) too small for intervention. Her mid LAD demonstrated a 60% stenosis which was significant per FFR. A drug-eluting stent was implanted to her left anterior descending artery. Flecainide discontinued during that visit due to coronary disease. She was discharged home on Eliquis, Plavix, and metoprolol. Reports increased frequency of palpitations over the past week. Episode of atrial fibrillation lasted approximately 16 hours. Currently, patient is resting comfortably. No chest discomfort or palpitations this morning. Voices concern regarding history of low resting heart rate. Home blood pressure readings controlled. Denies orthopnea, PND, or lower extremity edema. No syncope or near syncope. Denies signs/symptoms of GI/ blood loss. Questions today regarding duration of clopidogrel therapy. Allergies Allergy/AdvReac Type Severity Reaction Status Date / Time Sulfa (Sulfonamide Allergy Unknown CAN'T Verified 03/11/22 22:38 Antibiotics) REMEMBER doxycycline AdvReac Intermediate CAUSED Verified 03/11/22 22:38 A-FIB Home Medications Medication Instructions Recorded Confirmed Type cyanocobalamin (vitamin B-12) 1,000 mcg PO QPM 06/07/19 03/11/22 History 1,000 mcg tablet (Vitamin B-12) magnesium 250 mg tablet 250 mg PO QPM 06/07/19 03/11/22 History cholecalciferol (vitamin D3) 25 25 mcg PO QPM 05/29/20 03/11/22 History mcg (1,000 unit) capsule (Vitamin D3) latanoprost 0.005 % eye drops 1 drp OPB HS 05/29/20 03/11/22 History rosuvastatin 5 mg tablet 5 mg PO DAILY 05/29/20 03/11/22 History timolol maleate 0.5 % eye drops 1 drp OPB QAM 05/29/20 03/11/22 History ascorbic acid (vitamin C) 1,000 mg 1 g PO QPM 02/05/22 03/11/22 History tablet (Vitamin C) apixaban 5 mg tablet (Eliquis) 5 mg PO BID #60 tab 02/07/22 03/11/22 Rx metoprolol succinate 25 mg 25 mg PO DAILY 30 Days #30 tab 02/07/22 03/11/22 Rx tablet,extended release 24 hr clopidogrel 75 mg tablet 75 mg PO QAM 03/11/22 03/11/22 History guar gum 1 tbsp PO DAILY 03/11/22 03/11/22 History lisinopril 2.5 mg tablet 2.5 mg PO QAM 03/11/22 03/11/22 History Patient History Medical History (Updated 03/12/22 @ 10:14 by Uche Greer DO) A-fib Diverticulosis HTN (hypertension) Family History Other No significant family history Social History Smoking Status: Former smoker Tobacco Type: Cigarettes Cigarettes Per Day: 7; Second Hand Exposure: No; Hx Alcohol Use: No Hx Substance Use: No Preferred Language: Albanian Communication Ability: Effective Street Worker Required: No Beliefs That Will Affect Care: None Current Living Situation: Other Current Living Situation Comment: lives w/ friend - viet navarro 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 How many Children do You have: 3 Other Information That Helps Us Care for You: No Feels Safe at Home: Yes Safety Concerns: Feels Safe At This Time Assistive Devices: None Assistive Devices Comment: partial and tooth implant Review of Systems Review of Systems: All systems reviewed & are unremarkable except as noted in Subjective Physical Exam Constitutional: well nourished and + obese; no acute distress Respiratory: no respiratory distress, no labored breathing and no retractions Auscultation: lungs clear to auscultation bilaterally; no crackles, no rales, no rhonchi and no wheezes Cardiovascular: Rate/Rhythm: regular rate and regular rhythm Heart Sounds: normal S1 and normal S2 Gastrointestinal (Abdomen): Inspection/Auscultation: abdomen normal to inspection; abdomen not distended Percussion/Palpation: abdomen soft; abdomen nontender, no guarding and abdomen not rigid Neurologic: CN's II-XI intact bilaterally; no focal motor deficits Results & Data ([facility]) Vital Signs (Past 12 Hours) Vital Signs Temp Pulse Pulse Pulse Resp BP BP 03/12/22 08:16 65 03/12/22 08:03 03/12/22 07:37 36.8 C 64 22 138/82 03/12/22 04:15 66 03/12/22 03:49 114 H 03/12/22 03:23 36.8 C 96 H 16 137/84 03/12/22 02:49 111 H 18 107/79 03/12/22 02:24 107 H 03/12/22 01:40 136 H 03/12/22 00:58 115 H 20 107/89 03/11/22 23:54 115 H 139/89 03/11/22 23:50 115 H 21 139/89 03/11/22 23:11 131 H 130/81 03/11/22 22:41 128 H 22 130/81 Pulse Ox Pulse Ox 03/12/22 08:16 03/12/22 08:03 95 03/12/22 07:37 95 03/12/22 04:15 03/12/22 03:49 03/12/22 03:23 96 03/12/22 02:49 98 03/12/22 02:24 03/12/22 01:40 03/12/22 00:58 97 03/11/22 23:54 03/11/22 23:50 95 03/11/22 23:11 03/11/22 22:41 96
--- NOTE | 2022-03-12 15:24 | Electrocardiogram Report ---
Test Reason : Blood Pressure : / mmHG Vent. Rate : 120 BPM Atrial Rate : 107 BPM P-R Int : 000 ms QRS Dur : 086 ms QT Int : 308 ms P-R-T Axes : 000 004 051 degrees QTc Int : 435 ms Atrial fibrillation with rapid ventricular response Abnormal ECG When compared with ECG of 07-FEB-2022 04:38, Atrial fibrillation has replaced Sinus rhythm Vent. rate has increased BY 59 BPM Nonspecific T wave abnormality, improved in Anterior leads Confirmed by Gustavo Culp ([id number]) on 03/12/2022 3:24:49 PM Referred By: REFERRED SELF Confirmed By:Gustavo Culp
--- NOTE | 2022-03-12 15:38 | Electrocardiogram Report ---
Test Reason : Blood Pressure : / mmHG Vent. Rate : 068 BPM Atrial Rate : 068 BPM P-R Int : 172 ms QRS Dur : 090 ms QT Int : 386 ms P-R-T Axes : 068 023 071 degrees QTc Int : 410 ms Normal sinus rhythm Nonspecific T wave abnormality Abnormal ECG When compared with ECG of 11-MAR-2022 22:04, (unconfirmed) Sinus rhythm has replaced Atrial fibrillation Vent. rate has decreased BY 52 BPM Nonspecific T wave abnormality, worse in Anterior leads Confirmed by Gustavo Culp ([id number]) on 03/12/2022 3:38:09 PM Referred By: REFERRED SELF Confirmed By:Gustavo Culp
--- NOTE | 2022-03-12 18:36 | Hospitalist Progress Note ---
Date of Service March 12, 2022 Assessment & Plan (1) Atrial fibrillation with rapid ventricular response: Plan: Recurrent A. fib Hx PAF/Afl status post ablation Present on admission with afib RVR with rate 120 received Metoprolol 3mg IVx2 and Digoxinx2 on admission Cardiology on board Starting on Sotalol 80mg BID Flecainide discontinued Tele monitor showed NSR Continue Eliquis Continue monitor for bradycardia and QTC Will monitor EKG daily CAD status post stent last month Continue Plavix, eliquis, statin, metoprolol and Lisinopril Asymptomatic Hypertension BP stable Continue Lisinopril and Metoprolol YFN Non compliance with CPAP DVT prophylaxis. Eliquis Full code Admission and Anticipated Discharge Date Admission Date: March 12, 2022 Subjective Pt was seen and examined for follow up of Afib with RVR Lying in bed with no distress with family member at bedside Obtained permission from to start the encounter she said that she feels fine Tele monitor showed that she converted to NSR at 4am Currently denies any chest pain, palpitation, dizziness and SOB Review of Systems Review of Systems: All systems reviewed & are unremarkable except as noted in Subjective Physical Exam Physical Exam: General- No acute distress Head- atraumatic Eyes- PERRL, EOMI, ENT- oropharynx clear Neck- supple, no JVD Lungs- clear to auscultation Heart- regular rhythm; no murmur Abdomen- normal bowel sounds, soft, nontender Extremities- no calf tenderness Neuro- alert, oriented x 3; PERRL, EOMI; no facial palsy; no dysarthria Skin- warm & dry Results & Data Results & Data ([facility]) Vital Signs (Past 12 Hours) Vital Signs Temp Pulse Pulse Resp BP BP Pulse Ox 03/12/22 15:48 36.9 C 54 L 20 109/70 94 03/12/22 11:28 36.7 C 57 L 18 128/70 97 03/12/22 08:16 65 03/12/22 08:03 03/12/22 07:37 36.8 C 64 22 138/82 95 Pulse Ox 03/12/22 15:48 03/12/22 11:28 03/12/22 08:16 03/12/22 08:03 95 03/12/22 07:37
[2022-03-12] MEDS: MAGNESIUM OXIDE 400 MG TAB PO SCH (20:28)
[2022-03-12] MEDS: CYANOCOBALAMIN (B-12) 500 MCG TABLET PO SCH (20:29)
[2022-03-12] MEDS: LATANOPROST 0.005% OP SOLN 2.5 ML BTL OPB SCH (20:57)
[2022-03-13] MEDS: ROSUVASTATIN CALCIUM 5 MG TAB PO SCH (07:44)
[2022-03-13] MEDS: APIXABAN 5 MG TABLET PO SCH ×2 (07:45→20:30)
[2022-03-13] MEDS: CLOPIDOGREL BISULFATE 75 MG TAB PO SCH (07:45)
[2022-03-13] MEDS: lisinopril 2.5 MG TAB PO SCH (07:45)
[2022-03-13] MEDS: TIMOLOL MALEATE 0.5% OP SOLN 5 ML BTL OPB SCH (07:46)
[2022-03-13] MEDS: SOTALOL HCL 80 MG TAB PO SCH ×2 (07:46→20:29)
[2022-03-13] MEDS: METOPROLOL SUCC 25MG EXT REL TAB PO SCH (08:05)
--- NOTE | 2022-03-13 10:28 | Cardiology Progress Note ---
Date of Service March 13, 2022 Assessment & Plan (1) Atrial fibrillation with rapid ventricular response: (2) CAD (coronary artery disease), [place] coronary artery: (3) Presence of stent in LAD coronary artery: Plan: Continue sotalol loading, 80 mg twice daily. Repeat ECG in a.m. approximately 2 hours after a.m. dose of sotalol. Flecainide recently discontinued due to diagnosis of coronary disease/ NSTEMI s/p NEYDA to LAD. She will be discharged home after 5th dose (AM dose 03/14/2022) if there is no significant bradycardia, and QTc remains within acceptable range. Discontinue metoprolol. Continue other cardiovascular medications including Eliquis, clopidogrel, metoprolol, lisinopril, and rosuvastatin as previously ordered. Admission and Anticipated Discharge Date Admission Date: March 12, 2022 Subjective Patient seen examined the bedside. Reports fatigue this morning. Telemetry reveals sinus bradycardia with heart rate in the 50s. Occasionally heart rate dips into the 40s overnight. A.m. dose of metoprolol held. She has received 3 doses of 80 mg of sotalol. Notes episode of chest discomfort relieved with belching last evening. Offers no other concerns/complaints Review of Systems Review of Systems: All systems reviewed & are unremarkable except as noted in Subjective Physical Exam Constitutional: well nourished and + obese; no acute distress Respiratory: no respiratory distress, no labored breathing and no retractions Auscultation: lungs clear to auscultation bilaterally; no crackles, no rales, no rhonchi and no wheezes Cardiovascular: Rate/Rhythm: regular rate and regular rhythm Heart Sounds: normal S1 and normal S2 Gastrointestinal (Abdomen): Inspection/Auscultation: abdomen normal to inspection; abdomen not distended Percussion/Palpation: abdomen soft; abdomen nontender, no guarding and abdomen not rigid Neurologic: CN's II-XI intact bilaterally; no focal motor deficits Results & Data ([facility]) Vital Signs (Past 12 Hours) Vital Signs Temp Pulse Pulse Pulse Resp BP BP 03/13/22 07:50 36.6 C 58 L 18 119/73 03/13/22 07:31 46 L 03/13/22 07:14 36.7 C 54 L 19 118/57 L 03/13/22 03:44 36.6 C 54 L 18 114/68 03/12/22 22:35 36.7 C 58 L 18 112/68 Pulse Ox 03/13/22 07:50 96 03/13/22 07:31 03/13/22 07:14 96 03/13/22 03:44 95 03/12/22 22:35 96
--- NOTE | 2022-03-13 15:43 | Electrocardiogram Report ---
Test Reason : Blood Pressure : / mmHG Vent. Rate : 056 BPM Atrial Rate : 056 BPM P-R Int : 194 ms QRS Dur : 092 ms QT Int : 448 ms P-R-T Axes : 066 -09 037 degrees QTc Int : 432 ms Sinus bradycardia Otherwise normal ECG When compared with ECG of 12-MAR-2022 08:21, No significant change was found Confirmed by Gustavo Culp ([id number]) on 03/13/2022 3:31:06 PM Also confirmed by Gustavo Culp ([id number]), website/blog editor Terry Elliott ([id number]) on 03/13/2022 3:42:31 PM Referred By: REFERRED SELF Confirmed By:Gustavo Culp
[2022-03-13] MEDS: MAGNESIUM OXIDE 400 MG TAB PO SCH (20:30)
[2022-03-13] MEDS: CYANOCOBALAMIN (B-12) 500 MCG TABLET PO SCH (20:30)
[2022-03-13] MEDS: LATANOPROST 0.005% OP SOLN 2.5 ML BTL OPB SCH (20:30)
--- NOTE | 2022-03-13 21:11 | Hospitalist Progress Note ---
Date of Service March 13, 2022 Assessment & Plan (1) Atrial fibrillation with rapid ventricular response: Plan: Recurrent A. fib Hx PAF/Afl status post ablation Present on admission with afib RVR with rate 120 received Metoprolol 3mg IVx2 and Digoxinx2 on admission Cardiology on board Continue Sotalol 80mg BID Flecainide discontinued Tele monitor showed NSR Continue Eliquis Metoprolol was discontinued due to bradycardia Continue monitor EKG CAD status post stent last month Continue Plavix, eliquis, statin, metoprolol and Lisinopril Asymptomatic Hypertension BP stable Continue Lisinopril and Metoprolol YFN Non compliance with CPAP DVT prophylaxis. Eliquis Full code Admission and Anticipated Discharge Date Admission Date: March 13, 2022 Subjective Pt was seen and examined for follow up of Afib with RVR Sitting in chair reading with no acute distress she said that she feels fine Tele monitor showed bradycardia btw 40's to 50's Currently denies any chest pain, palpitation, dizziness and SOB Review of Systems Review of Systems: All systems reviewed & are unremarkable except as noted in Subjective Physical Exam Physical Exam: General- No acute distress Head- atraumatic Eyes- PERRL, EOMI, ENT- oropharynx clear Neck- supple, no JVD Lungs- clear to auscultation Heart- regular rhythm; no murmur Abdomen- normal bowel sounds, soft, nontender Extremities- no calf tenderness Neuro- alert, oriented x 3; PERRL, EOMI; no facial palsy; no dysarthria Skin- warm & dry Results & Data Results & Data ([facility]) Vital Signs (Past 12 Hours) Vital Signs Temp Pulse Pulse Resp BP Pulse Ox 03/13/22 19:28 36.7 C 52 L 18 123/77 96 03/13/22 15:49 36.5 C 57 L 19 126/77 97 03/13/22 14:51 60 03/13/22 11:26 36.7 C 49 L 20 127/66 96
[2022-03-14] MEDS: SOTALOL HCL 80 MG TAB PO SCH (08:02)
[2022-03-14] MEDS: CLOPIDOGREL BISULFATE 75 MG TAB PO SCH (08:02)
[2022-03-14] MEDS: APIXABAN 5 MG TABLET PO SCH (08:02)
[2022-03-14] MEDS: lisinopril 2.5 MG TAB PO SCH (08:02)
[2022-03-14] MEDS: ROSUVASTATIN CALCIUM 5 MG TAB PO SCH (08:02)
[2022-03-14] MEDS: TIMOLOL MALEATE 0.5% OP SOLN 5 ML BTL OPB SCH (08:03)
--- NOTE | 2022-03-14 10:21 | Electrocardiogram Report ---
Test Reason : Blood Pressure : / mmHG Vent. Rate : 054 BPM Atrial Rate : 054 BPM P-R Int : 182 ms QRS Dur : 092 ms QT Int : 468 ms P-R-T Axes : 063 017 044 degrees QTc Int : 443 ms Sinus bradycardia with marked sinus arrhythmia Otherwise normal ECG When compared with ECG of 13-MAR-2022 09:43, No significant change was found Confirmed by Gustavo Culp ([id number]) on 03/14/2022 10:21:46 AM Referred By: REFERRED SELF Confirmed By:Gustavo Culp
--- NOTE | 2022-03-14 11:02 | Cardiology Progress Note ---
Date of Service March 14, 2022 Assessment & Plan (1) Atrial fibrillation with rapid ventricular response: (2) CAD (coronary artery disease), [place] coronary artery: (3) Presence of stent in LAD coronary artery: Plan: Continue sotalol 80 mg twice daily. Metoprolol discontinued during hospitalization due to bradycardia. Flecainide recently discontinued due to diagnosis of coronary disease/ NSTEMI s/p NEYDA to LAD. No further inpatient cardiac testing or intervention at this time. She may be discharged to home. Continue other cardiovascular medications including Eliquis, clopidogrel, lisinopril, and rosuvastatin as previously ordered. Outpatient cardiology follow-up in 1-2 weeks. Admission and Anticipated Discharge Date Admission Date: March 13, 2022 Subjective Patient seen and examined at the bedside. Notes feeling somewhat sluggish this morning. Walked a few laps around the progressive care unit. Notes mild dyspnea on exertion which is somewhat unusual. Denies exertional chest pain or heaviness. Telemetry reveals sinus rhythm and sinus bradycardia with heart rate averaging in the 50s. No significant pauses or recurrent atrial fibrillation. Review of Systems Review of Systems: All systems reviewed & are unremarkable except as noted in Subjective Physical Exam Constitutional: well nourished and + obese; no acute distress Respiratory: no respiratory distress, no labored breathing and no retractions Auscultation: lungs clear to auscultation bilaterally; no crackles, no rales, no rhonchi and no wheezes Cardiovascular: Rate/Rhythm: regular rate, regular rhythm and + bradycardic Heart Sounds: normal S1 and normal S2 Gastrointestinal (Abdomen): Inspection/Auscultation: abdomen normal to inspection; abdomen not distended Percussion/Palpation: abdomen soft; abdomen nontender, no guarding and abdomen not rigid Neurologic: CN's II-XI intact bilaterally; no focal motor deficits Results & Data ([facility]) Vital Signs (Past 12 Hours) Vital Signs Temp Pulse Pulse Pulse Resp BP Pulse Ox 03/14/22 08:03 56 L 03/14/22 08:00 50 L 03/14/22 07:50 36.5 C 51 L 20 121/72 94 03/14/22 02:35 36.7 C 54 L 18 118/66 94
--- NOTE | 2022-03-14 11:47 | Discharge Summary ---
Date of Service March 14, 2022 Admission HPI Per Admitting Provider History obtained from patient, family, and records. Medical history significant for CAD status post stent, paroxysmal A. fib/atrial flutter status post ablation on Eliquis, hypertension, hyperlipidemia, NAFLD, mood disorder, YFN CPAP noncompliance, past tobacco abuse. Last confinement last month for non-ST elevation NC. Multivessel CAD on diagnostic cardiac catheterization. PCI of mid LAD lesion with drug-eluting stent. Patient discharged on Plavix. Patient flecainide switched to metoprolol during confinement as well. Yesterday afternoon, patient noted palpitations, racing heartbeat associated with left-sided chest discomfort without shortness of breath or diaphoresis. Episode similar to A. fib episodes as per patient. No unusual cough symptoms. Some family stress with recent in the family. Patient compliant with home medications. No fluid retention. Patient brought to the ER for evaluation. Noted to be in rapid A. fib. Heart rate 130s at the highest. IV Lopressor administered at the ER. 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 Admission Exam Per Admitting Provider GENERAL: Comfortable, pleasant, morbidly obese, no respiratory distress SKIN: Normal color, warm HEENT: Bespectacled, [place] palpebral conjunctivae, no ptosis, moist buccal mucosa NECK : Supple, short neck, no tenderness CHEST : CTA, no tenderness HEART : Irregular, no obvious murmurs ABDOMEN: Some distention, nontender EXTREMITIES : Minimal LE swelling, no LE tenderness, no other conspicuous deformities noted NEUROLOGIC : Coherent, no facial asymmetry, no other gross focality Principal Diagnosis 35 minutes Discharge Exam General- No acute distress Head- atraumatic Eyes- PERRL, EOMI, ENT- oropharynx clear Neck- supple, no JVD Lungs- clear to auscultation Heart- regular rhythm; no murmur Abdomen- normal bowel sounds, soft, nontender Extremities- no calf tenderness Neuro- alert, oriented x 3; PERRL, EOMI; no facial palsy; no dysarthria Skin- warm & dry Discharge Data Allergies Allergy/AdvReac Type Severity Reaction Status Date / Time Sulfa (Sulfonamide Allergy Unknown CAN'T Verified 03/11/22 22:38 Antibiotics) REMEMBER doxycycline AdvReac Intermediate CAUSED Verified 03/11/22 22:38 A-FIB Consultations 03/12/22 00:42 ED Decision to Admit Stat 03/12/22 03:10 Consult Cardiology Routine Hospital Course (1) Atrial fibrillation with rapid ventricular response: Recurrent A. fib Hx PAF/Afl status post ablation Present on admission with afib RVR with rate 120 received Metoprolol 3mg IVx2 and Digoxinx2 on admission Cardiology on board Continue Sotalol 80mg BID Flecainide recently discontinued for NSTEMI Metoprolol was discontinued due to bradycardia Tele monitor showed NSR Continue Eliquis, plavix Case discussed with cardiology Stable from cardiology standpoint to discharge home Follow up with cardiology in 1-2 weeks CAD status post stent last month Continue Plavix, Eliquis, Statin, and Lisinopril Asymptomatic Hypertension BP stable Continue Lisinopril and Metoprolol YFN Non compliance with CPAP DVT prophylaxis on Eliquis Full code Total Time Total Time Spent Total Time Spent (In Minutes): 35 minutes Discharge Plan Discharge Items Patient Disposition: Home - Self-Care Reason For Visit: RAPID AF Discharge Diagnosis: Atrial fibrillation with rapid ventricular response: History recurrent Atrial Fibrillation Coronary Artery Disease Hypertension Obstructive Sleep Apnea Activity: Resume your previous activity Non-emergency contact: Primary Care Provider and Performance Improvement Coordinator Call non-emergency contact if: you have any medication questions Follow-up/Referrals: Ilana Harris MD [Primary Care Provider] - (Date & Time 03/19/2022 11:00 AM Provider Ilana Harris MD Department [facility] ) Diet: Heart Healthy Addtl Attending Provider Instructions: Follow up with your primary care provider Dr. Harris on 03/19/2022 @ 11:00 AM at [facility] Follow up with your cardiology in 1 to 2 weeks Seek medical attention if your symptoms reoccur Metoprolol discontinued due to low heart rate Pending Studies at Discharge: No Stand-Alone Forms: My [facility], Smoking Cessation Medications and DC Order Prescriptions: New sotalol 80 mg Tablet 80 mg PO BID 30 Days Qty: 60 RF: 0 Continued rosuvastatin 5 mg tablet 5 mg PO DAILY RF: 0 latanoprost 0.005 % drops 1 drp OPB HS RF: 0 timolol maleate 0.5 % drops 1 drp OPB QAM RF: 0 cholecalciferol (vitamin D3) [Vitamin D3] 25 mcg (1,000 unit) Capsule 25 mcg PO QPM RF: 0 cyanocobalamin (vitamin B-12) [Vitamin B-12] 1,000 mcg Tablet 1,000 mcg PO QPM RF: 0 magnesium 250 mg Tablet 250 mg PO QPM RF: 0 ascorbic acid (vitamin C) [Vitamin C] 1,000 mg Tablet 1 g PO QPM RF: 0 Eliquis 5 mg tablet 5 mg PO BID Qty: 60 RF: 0 clopidogrel 75 mg tablet 75 mg PO QAM RF: 0 Benefiber (guar gum) Packet 1 tbsp PO DAILY RF: 0 lisinopril 2.5 mg tablet 2.5 mg PO QAM RF: 0 Discontinued metoprolol succinate 25 mg Tablet Extended Release 24 Hr 25 mg PO DAILY 30 Days Qty: 30 RF: 0 Discharge Orders: Discharge Order (Routine); Ordered 03/14/22 Ordered By: Glenis Townsend Admission Data Admit Date/Time: 03/13/22 14:01 Attending Provider: Glenis Townsend Admit Provider: Bereket Constantino Primary Care Provider: Ilana Harris Other Providers: Bereket Constantino ; Misael Chappell ; José Manuel Macario ; Jonatan Chamberlain ; Uche Greer ; Lamberto Jones ; Daren Brown ; Aurea Chang ; Kandy An ; Vesna Reyes ; Micheal Brown
== END 2022-03-14 14:49 | disposition home or self-care (01) | DRG 309 ==
LOC: ED 21:52 → 2S 21:52

== ENCOUNTER 2022-03-25 21:39 | Inpatient (IN) ==
[2022-03-25] MEDS ORDERED: SODIUM CHLORIDE 0.9% 500 ML IV STA (21:58)
[2022-03-25] MEDS ORDERED: METOPROLOL TARTRATE 1 MG/ML VIAL IV STA (22:09)
[2022-03-25 22:13] LABS: Basophils # (auto) 0.01 K/uL (0-0.2); Basophils % (auto) 0.1 %; Eosinophils # (auto) 0.17 K/uL (0-0.5); Eosinophils % (auto) 2.4 %; Hematocrit (blood only) 40.5 % (37-47); Hemoglobin 13.7 g/dL (12.0-16.0); Immature Granulocytes # (auto) 0.02 K/uL (0.00-0.02); Immature Granulocytes % (auto) 0.3 %; Lymphocytes # (auto) 2.07 K/uL (1.2-3.4); Lymphocytes % (auto) 29.2 %; Mean Corpuscular Hemoglobin 31.7 pg (25-34); Mean Corpuscular Hgb Conc 33.8 g/dL (32-36); Mean Corpuscular Volume 93.8 fL (80-100); Mean Platelet Volume 10.6 fL (7.4-10.4); Monocytes # (auto) 0.72 K/uL (0.11-0.59); Monocytes % (auto) 10.2 %; Neutrophils # (auto) 4.09 K/uL (1.4-6.5); Neutrophils % (auto) 57.8 %; Platelet Count 216 K/uL (130-400); RDW Coefficient of Variation 12.4 % (11.5-14.5); RDW Standard Deviation 42.3 fL (36.4-46.3); Red Blood Count 4.32 M/uL (4.2-5.4); White Blood Count 7.08 K/uL (4.8-10.8)
[2022-03-25 22:35] LABS: Albumin Globulin Ratio 1.6 (0.9-2); Albumin Level 4.6 gm/dl (3.4-5.0); BUN Creatinine Ratio 13.9 (10-20); Bilirubin,Total 0.5 mg/dl (0.2-1.0); Calcium 9.3 mg/dl (8.5-10.1); Creatinine Clr Calc Pharmacy 95.9 ml/min; Est GFR (African American) 103.3 ml/min; Est GFR (Non-African American) 89.1 ml/min; Globulin 2.9 gm/dl (2.5-4.0); Magnesium 2.1 mg/dl (1.7-2.4); Potassium 3.6 mmol/L (3.5-5.1); Total Protein 7.5 gm/dl (6.0-8.3)
[2022-03-25] MEDS ORDERED: POTASSIUM CHLORIDE CRTAB 20 MEQ TABCR PO STA (23:03)
--- NOTE | 2022-03-25 23:05 | Emergency Department Note ---
History of Present Illness General Chief complaint: Cardiac Assessment Stated complaint: THINKS SHE HAD HEART ATTACK AND CURRENTLY IN AFIB Time Seen by Provider: 03/25/22 21:47 History of Present Illness This 61-year-old with a history of A. fib Eliquis and sotalol presents to the ER complaining of chest pain and A. fib Location: Chest Quality: Discomfort Severity: Moderate Duration: Today Timing: Today Context: Patient was concerned and came in Modifying factors: better with nothing; worse with nothing Patient states has had problems with controlling her A. fib for a while. She had multiple medication changes. Patient had a prior heart attack. She follows with Dr. Greer. Patient denies fever, chills, abdominal pain, leg pain or swelling. No history of heart failure. She has not missed any doses of her sotalol or Eliquis. She is no longer on her metoprolol secondary to bradycardi a. Home Medications Medication Instructions Recorded Confirmed Type cyanocobalamin (vitamin B-12) 1,000 mcg PO QPM 06/07/19 03/11/22 History 1,000 mcg tablet (Vitamin B-12) magnesium 250 mg tablet 250 mg PO QPM 06/07/19 03/11/22 History cholecalciferol (vitamin D3) 25 25 mcg PO QPM 05/29/20 03/11/22 History mcg (1,000 unit) capsule (Vitamin D3) latanoprost 0.005 % eye drops 1 drp OPB 05/29/20 03/11/22 History rosuvastatin 5 mg tablet 5 mg PO DAILY 05/29/20 03/11/22 History timolol maleate 0.5 % eye drops 1 drp OPB QAM 05/29/20 03/11/22 History ascorbic acid (vitamin C) 1,000 mg 1 g PO QPM 02/05/22 03/11/22 History tablet (Vitamin C) apixaban 5 mg tablet (Eliquis) 5 mg PO BID #60 tab 02/07/22 03/11/22 Rx clopidogrel 75 mg tablet 75 mg PO QAM 03/11/22 03/11/22 History guar gum 1 tbsp PO DAILY 03/11/22 03/11/22 History lisinopril 2.5 mg tablet 2.5 mg PO QAM 03/11/22 03/11/22 History sotalol 80 mg tablet 80 mg PO BID 30 Days #60 tab 03/14/22 Rx Allergies Allergy/AdvReac Type Severity Reaction Status Date / Time Sulfa (Sulfonamide Allergy Unknown CAN'T Verified 03/11/22 22:38 Antibiotics) REMEMBER doxycycline AdvReac Intermediate CAUSED Verified 03/11/22 22:38 A-FIB Past Med/Surg History Medical History (Updated 03/25/22 @ 23:05 by Gwen Irizarry PA-C) A-fib Diverticulosis HTN (hypertension) Family History Other No significant family history Social History Smoking Status: Never smoker Tobacco Type: Cigarettes Cigarettes Per Day: 7; Second Hand Exposure: No; Hx Alcohol Use: No Hx Substance Use: No Preferred Language: Pashto Communication Ability: Effective Diagnostic Tech Required: No Beliefs That Will Affect Care: None Current Living Situation: Other Current Living Situation Comment: lives w/ friend - viet navarro 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 How many Children do You have: 3 Feels Safe at Home: Yes Assistive Devices: None Review of Systems A total of 10 systems reviewed and were otherwise negative Physical Exam Vital Signs Vital Signs - 24 hr 03/25/22 21:40 03/25/22 21:54 03/25/22 21:56 Temperature 35.3 C L Temperature Source Temporal Artery Scan Pulse Rate 117 H 125 H Pulse Rate [Left Radial] 115 H Pulse Rhythm [Left Radial] Regular Respiratory Rate 20 20 17 Respiratory Effort / Characteristics Non-Labored Spontaneous Non-Labored Respiratory Depth Normal Normal Blood Pressure 112/78 Blood Pressure [Left Arm] 121/76 Blood Pressure Mean 89 Blood Pressure Mean [Left Arm] 91 Blood Pressure Position [Left Arm] Lying Pulse Oximetry 95 95 Oxygen Delivery Method Room Air Room Air Sepsis New/Unexplained Change in Mental Status N/A Sepsis Action Taken by Nursing No Action Required 03/25/22 22:00 03/25/22 22:10 03/25/22 22:20 Temperature Temperature Source Pulse Rate 134 H 124 H 119 H Pulse Rate [Left Radial] Pulse Rhythm [Left Radial] Respiratory Rate 18 22 26 H Respiratory Effort / Characteristics Respiratory Depth Blood Pressure 135/90 Blood Pressure [Left Arm] Blood Pressure Mean 105 Blood Pressure Mean [Left Arm] Blood Pressure Position [Left Arm] Pulse Oximetry Oxygen Delivery Method Sepsis New/Unexplained Change in Mental Status Sepsis Action Taken by Nursing 03/25/22 22:30 03/25/22 22:32 03/25/22 22:40 Temperature Temperature Source Pulse Rate 120 H 108 H 107 H Pulse Rate [Left Radial] Pulse Rhythm [Left Radial] Respiratory Rate 19 20 22 Respiratory Effort / Characteristics Respiratory Depth Blood Pressure 137/95 Blood Pressure [Left Arm] Blood Pressure Mean 109 Blood Pressure Mean [Left Arm] Blood Pressure Position [Left Arm] Pulse Oximetry Oxygen Delivery Method Sepsis New/Unexplained Change in Mental Status Sepsis Action Taken by Nursing 03/25/22 22:50 03/25/22 23:00 Temperature Temperature Source Pulse Rate 108 H 124 H Pulse Rate [Left Radial] Pulse Rhythm [Left Radial] Respiratory Rate 22 17 Respiratory Effort / Characteristics Respiratory Depth Blood Pressure Blood Pressure [Left Arm] Blood Pressure Mean Blood Pressure Mean [Left Arm] Blood Pressure Position [Left Arm] Pulse Oximetry Oxygen Delivery Method Sepsis New/Unexplained Change in Mental Status Sepsis Action Taken by Nursing VITALS: Vitals are noted on the nurse's note and reviewed by myself. Vital signs tachycardic. GENERAL: Pleasant female, in no acute distress, nondiaphoretic, well-developed well-nourished. SKIN: The skin was without rashes, erythema, edema, or bruising. There is no tenting of the skin. Capillary reflex less than 2 seconds. HEAD: Normocephalic atraumatic. EARS: External auditory canals clear, EYES: Pupils equal round and reactive to light and accommodation. Conjunctivae without injection, sclerae without icterus. Extraocular movements intact. NOSE: Patent, turbinates without inflammation or discharge. MOUTH: Mucous membranes moist. Pharynx without erythema or exudate. Uvula midline. Airway patent. Tongue does not deviate. NECK: Supple without nuchal rigidity. No lymphadenopathy. No thyromegaly. Cervical spine is nontender. No JVD. HEART: Tachycardic irregularly irregular LUNGS: Clear to auscultation bilaterally without wheezes, rales or rhonchi. No retractions or accessory muscle use. ABDOMEN: Positive bowel sounds x 4. Normal tympanic percussion. Soft, nontender, without masses or organomegaly. Melo sign negative. No guarding or rebound tenderness. No CVA tenderness MUSCULOSKELETAL: No muscle atrophy, erythema, or edema noted. NEURO: Patient was alert and oriented to person place and time. Normal sensation to light and sharp touch. No focal neurological deficits. Course Administered Medications Discontinued Medications Sodium Chloride (Nss) 500 mls @ 999 mls/hr IV .Q31M STA Stop: 03/25/22 22:28 Last Infusion: 03/25/22 22:49 Dose: 0 mls/hr Documented by: [id number] Admin: 03/25/22 22:07 Dose: 999 mls/hr Documented by: [id number] Metoprolol Tartrate (Metoprolol Tartrate 1 Mg/Ml Vial) 2.5 mg IV NOW STA Stop: 03/25/22 22:10 Last Admin: 03/25/22 22:32 Dose: 2.5 mg Documented by: [id number] Medical Decision Making Medical Records Attestation: I reviewed the patient's medical records. Home Medications Current Medication List: was personally reviewed by me Laboratory Data Attestation: I reviewed the patient's lab results. Result diagrams: 03/25/22 21:53 03/25/22 21:53 Lab Results 03/25/22 03/25/22 03/25/22 Range/Units 21:53 21:53 21:53 WBC 7.08 (4.8-10.8) K/uL RBC 4.32 (4.2-5.4) M/uL Hgb 13.7 (12.0-16.0) g/dL Hct 40.5 (37-47) % MCV 93.8 (80-100) fL MCH 31.7 (25-34) pg MCHC 33.8 (32-36) g/dL RDW Std Deviation 42.3 (36.4-46.3) fL RDW Coeff of Adeel 12.4 (11.5-14.5) % Plt Count 216 (130-400) K/uL MPV 10.6 H (7.4-10.4) fL Immature Gran % (Auto) 0.3 % Neut % (Auto) 57.8 % Lymph % (Auto) 29.2 % [place] % (Auto) 10.2 % Eos % (Auto) 2.4 % Baso % (Auto) 0.1 % Neut # (Auto) 4.09 (1.4-6.5) K/uL Lymph # (Auto) 2.07 (1.2-3.4) K/uL [place] # (Auto) 0.72 H (0.11-0.59) K/uL Eos # (Auto) 0.17 (0-0.5) K/uL Baso # (Auto) 0.01 (0-0.2) K/uL Immature Gran # (Auto) 0.02 (0.00-0.02) K/uL Sodium 142 (136-145) mmol/L Potassium 3.6 (3.5-5.1) mmol/L Chloride 107 (98-107) mmol/L Carbon Dioxide 26 (21-32) mmol/L Anion Gap 9 (3-11) BUN 10 (6-23) mg/dl Creatinine 0.72 (0.6-1.2) mg/dl Est Cr Clr Drug Dosing 95.9 ml/min Est GFR ( Amer) 103.3 ml/min Est GFR (Non-Af Amer) 89.1 ml/min BUN/Creatinine Ratio 13.9 (10-20) Glucose 128 H (70-99(Fasting)) mg/dl Calcium 9.3 (8.5-10.1) mg/dl Magnesium 2.1 (1.7-2.4) mg/dl Total Bilirubin 0.5 (0.2-1.0) mg/dl AST 19 (13-39) U/L ALT 20 (7-52) U/L Alkaline Phosphatase 51 (34-104) U/L Troponin I High Sens 6.0 D (0-14) pg/ml Total Protein 7.5 (6.0-8.3) gm/dl Albumin 4.6 (3.4-5.0) gm/dl Globulin 2.9 (2.5-4.0) gm/dl Albumin/Globulin Ratio 1.6 (0.9-2) TSH 3.965 (0.300-4.500) uIu/ml Imaging Data Attestation: I personally reviewed and interpreted this imaging study as follows: MDM Narrative Prior records/ancillary studies reviewed. Triage Nursing notes reviewed. Additional history obtained from family. The patient's history was concerning for palpitations. Differential diagnosis: Etiologies such as premature contractions, electrolyte abnormality, cardiac dysrhythmia, thyroid dysfunction, pulmonary embolism, infection, gastrointestinal, as well as others were entertained. Physical examination: Benign as above. ER treatment provided: Metoprolol, IV fluids On reassessment the patient felt better. Diagnostic interpretation by me: An order was placed for continuous cardiac monitoring. The monitor shows a rate of 60-1 50 with a atrial fib rhythm. The electrocardiogram was ordered for chest pain EKG: Irregularly irregular, minimal ST depression in the lateral leads most likely rate dependent, rate of 133. A. fib with RVR interpreted by myself with poor baseline EKG shows no interval abnormalities such as QT prolongation or WPW. There are no findings to suggest Brugada syndrome. Cardiac monitoring in the emergency department reveals no bradycardic dysrhythmia. Hypertrophic cardiomyopathy was considered but there are no clear historical elements pointing toward this. EKG is not suggestive. The QRS voltage is not extremely large and there are no suggestive Q waves. The labs revealed euthyroid, negative troponin-repeat ordered Imaging studies: Chest x-ray with no acute consolidation, pneumothorax or free air per my interpretation HEART SCORE: Hx: high/mod/low suspicion: 1 ECG: ST depression/nonspecific changes/normal: 1 Age: Greater than 65/45-64/less than 45: 1 Risk factors: (Hypertension, hyperlipidemia, diabetes, coronary disease, tobacco use, cocaine use): 2 Troponin: Greater than 2 times normal limits/1-2 times normal limits/normal: 0 Total: 5 Consultation: A consultation was placed with the hospitalist. The case was discussed and diagnostics were reviewed. The patient was evaluated in the ER for further treatment. This appears to be consistent with A. fib with RVR and chest pain. Patient was given Lopressor. She had some improvement. Medicine was consulted. She will be admitted By the evaluation outlined above emergent etiologies such as electrolyte abnormality, thyroid dysfunction, pulmonary embolism, infection, as well as others were deemed relatively unlikely. The pt informed about the findings as listed above. All questions were answered and pleased with the treatment. The chart was completed utilizing [employer] voice recognition software. Grammatical errors, random word insertions, pronoun errors, and incomplete sentences are an occassional consequence of this system due to software limitations, ambient noise, and hardware issues. Any formal questions or concerns about the content, text, or information contained within the body of this dictation should be directly addressed to the physician press assistant for clarification. Impression & Plan Atrial fibrillation with rapid ventricular response, Atypical chest pain Discharge Plan Visit Data Chief Complaint: Cardiac Assessment Stated Complaint: THINKS SHE HAD HEART ATTACK AND CURRENTLY IN AFIB ED Provider: Oswaldo Vargas ED Midlevel Provider: Gwen Irizarry Discharge Problem: Atrial fibrillation with rapid ventricular response, Atypical chest pain Patient Disposition: Admitted As Inpatient Condition: Good Forms Stand Alone Forms: My [facility] [employer] Prescriptions Prescriptions: No Action rosuvastatin 5 mg tablet 5 mg PO DAILY RF: 0 latanoprost 0.005 % drops 1 drp OPB HS RF: 0 timolol maleate 0.5 % drops 1 drp OPB QAM RF: 0 cholecalciferol (vitamin D3) [Vitamin D3] 25 mcg (1,000 unit) Capsule 25 mcg PO QPM RF: 0 cyanocobalamin (vitamin B-12) [Vitamin B-12] 1,000 mcg Tablet 1,000 mcg PO QPM RF: 0 magnesium 250 mg Tablet 250 mg PO QPM RF: 0 ascorbic acid (vitamin C) [Vitamin C] 1,000 mg Tablet 1 g PO QPM RF: 0 Eliquis 5 mg tablet 5 mg PO BID Qty: 60 RF: 0 clopidogrel 75 mg tablet 75 mg PO QAM RF: 0 guar gum Packet 1 tbsp PO DAILY RF: 0 lisinopril 2.5 mg tablet 2.5 mg PO QAM RF: 0 sotalol 80 mg Tablet 80 mg PO BID 30 Days Qty: 60 RF: 0 Referrals Referrals: Ilana Harris MD [Primary Care Provider] -
[2022-03-25] MEDS ORDERED: DIGOXIN 500 MCG/2 ML AMP IV ONE (23:29)
--- NOTE | 2022-03-25 23:29 | History & Physical Report ---
Date of Service March 25, 2022 Assessment & Plan (1) Atrial fibrillation with rapid ventricular response: Plan: Recurrent A. fib with rapid ventricular response hx PAF/Afl status post ablation, currently on sotalol on Eliquis for anticoagulation Chest pain hx CAD status post stent Rule out ACS hypertension, BP on the lower side post IV Lopressor administration at the ER hyperlipidemia on statin Rx mood disorder, at baseline YFN CPAP noncompliance Hyperglycemia likely secondary to prediabetes, hemoglobin A1c of 5.23 February 2022 past tobacco abuse OBS PCU Continue Sotalol Digoxin 1 dose now Maintain serum potassium at 4 and above, serum magnesium at 2 and above Follow troponin Cardiology consult Re: Recurrent A. fib, chest pain N.p.o. until patient seen by cardiology in a.m in anticipation of procedure DVT prophylaxis. Eliquis Full code Text document was generated using [employer] voice recognition software. It may contain grammatical or spelling errors. Kindly contact undersigned for clarification of any documentation item in question. History of Present Illness Chief Complaint: Chest pain, A. fib, heart attack Primary Care Provider: Ilana Harris MD History obtained from patient, family, and records. Medical history significant for CAD status post stent (January 2022), paroxysmal A. fib/atrial flutter status post ablation on Eliquis, hypertension, hyperlipidemia, NAFLD, mood disorder, YFN CPAP noncompliance, glaucoma, past tobacco abuse. Last confinement 2 weeks ago for recurrent A. fib. Patient converted to NSR during confinement. Patient Metoprolol switched to Sotalol. Nausea and fatigue symptoms with Sotalol as per patient. Heart rate of 40 to 50s at home. Patient hesitant to reduce sotalol dose on outpatient cardiology follow-up visit 2 days ago. EPS follow-up in 6 weeks. Patient also instructed to comply with PPI prescription for GERD. A few hours ago at home, patient experienced substernal discomfort somewhat burning similar to her heart attack episode in the past. Palpitations noted similar to A. fib sensation as per patient. Shortness of breath. Patient compliant with medications. No unusual stress. Chest discomfort different from GERD episode as per patient. Patient brought by partner to the ER for evaluation. Patient noted to be in rapid A. fib, highest heart rate of 120s. IV Lopressor given at the ER. Patient currently comfortable. 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 Allergies Allergy/AdvReac Type Severity Reaction Status Date / Time Sulfa (Sulfonamide Allergy Unknown CAN'T Verified 03/26/22 00:01 Antibiotics) REMEMBER doxycycline AdvReac Intermediate CAUSED Verified 03/26/22 00:01 A-FIB Home Medications Medication Instructions Recorded Confirmed Type cyanocobalamin (vitamin B-12) 1,000 mcg PO QPM 06/07/19 03/25/22 History 1,000 mcg tablet (Vitamin B-12) magnesium 250 mg tablet 250 mg PO QPM 06/07/19 03/25/22 History cholecalciferol (vitamin D3) 25 25 mcg PO QPM 05/29/20 03/25/22 History mcg (1,000 unit) capsule (Vitamin D3) latanoprost 0.005 % eye drops 1 drp OPB HS 05/29/20 03/25/22 History rosuvastatin 5 mg tablet 5 mg PO DAILY 05/29/20 03/25/22 History timolol maleate 0.5 % eye drops 1 drp OPB QAM 05/29/20 03/25/22 History ascorbic acid (vitamin C) 1,000 mg 1 g PO QPM 02/05/22 03/25/22 History tablet (Vitamin C) apixaban 5 mg tablet (Eliquis) 5 mg PO BID #60 tab 02/07/22 03/25/22 Rx clopidogrel 75 mg tablet 75 mg PO QAM 03/11/22 03/25/22 History lisinopril 2.5 mg tablet 2.5 mg PO QAM 03/11/22 03/25/22 History sotalol 80 mg tablet 80 mg PO BID 30 Days #60 tab 03/14/22 03/25/22 Rx guar gum 1 gram tablet 0 g PO DAILY 03/25/22 03/25/22 History lactobacillus combination no.4 3 0 mmu cells PO DAILY 03/25/22 03/26/22 History billion cell capsule (Probiotic) pantoprazole 40 mg tablet,delayed 40 mg PO DAILY 03/25/22 03/26/22 History release Past Med/Surg History Medical History (Updated 03/25/22 @ 23:05 by Gwen Irizarry PA-C) A-fib Diverticulosis HTN (hypertension) Family History Other No significant family history Social History Smoking Status: Never smoker Tobacco Type: Cigarettes Cigarettes Per Day: 7; Second Hand Exposure: No; Hx Alcohol Use: No Hx Substance Use: No Preferred Language: Maltese Communication Ability: Effective Anesthesiology Medical Doctor Required: No Beliefs That Will Affect Care: None Current Living Situation: Significant Other Current Living Situation Comment: lives w/ friend - viet navarro 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 How many Children do You have: 3 Other Information That Helps Us Care for You: No Feels Safe at Home: Yes Safety Concerns: Feels Safe At This Time Assistive Devices: Denture - Lower and Glasses Review of Systems Review of Systems: As per HPI, all other systems reviewed and negative Physical Exam Physical Exam: GENERAL: Comfortable, pleasant, morbidly obese, no respiratory distress SKIN: Normal color, warm HEENT: Bespectacled, [place] palpebral conjunctivae, no ptosis, moist buccal mucosa NECK : Supple, short neck, no tenderness CHEST : CTA, no tenderness HEART : Irregular, tachycardic, no obvious murmurs ABDOMEN: Some distention, nontender EXTREMITIES : Minimal LE swelling, no LE tenderness, no other conspicuous deformities noted NEUROLOGIC : Coherent, no facial asymmetry, no other gross focality Results & Data Results & Data ([facility]) Vital Signs (Past 12 Hours) Vital Signs Temp Pulse Pulse Resp BP BP Pulse Ox 03/25/22 23:00 124 H 17 03/25/22 22:50 108 H 22 03/25/22 22:40 107 H 22 03/25/22 22:32 108 H 20 137/95 03/25/22 22:30 120 H 19 03/25/22 22:20 119 H 26 H 03/25/22 22:10 124 H 22 03/25/22 22:00 134 H 18 135/90 03/25/22 21:56 125 H 17 03/25/22 21:54 115 H 20 121/76 95 03/25/22 21:40 35.3 C L 117 H 20 112/78 95 Laboratory Results Laboratory Results WBC 7.08 K/uL (4.8-10.8) 05/08/22 21:53 RBC 4.32 M/uL (4.2-5.4) 03/25/22 21:53 Hgb 13.7 g/dL (12.0-16.0) 03/25/22 21:53 Hct 40.5 % (37-47) 03/25/22 21:53 MCV 93.8 fL (80-100) 03/25/22 21:53 MCH 31.7 pg (25-34) 03/25/22 21:53 MCHC 33.8 g/dL (32-36) 03/25/22 21:53 RDW Std Deviation 42.3 fL (36.4-46.3) 03/25/22 21:53 RDW Coeff of Adeel 12.4 % (11.5-14.5) 03/25/22 21:53 Plt Count 216 K/uL (130-400) 03/25/22 21:53 MPV 10.6 fL (7.4-10.4) H 03/25/22 21:53 Immature Gran % (Auto) 0.3 % 03/25/22 21:53 Neut % (Auto) 57.8 % 03/25/22 21:53 Lymph % (Auto) 29.2 % 03/25/22 21:53 [place] % (Auto) 10.2 % 03/25/22 21:53 Eos % (Auto) 2.4 % 03/25/22 21:53 Baso % (Auto) 0.1 % 03/25/22 21:53 Neut # (Auto) 4.09 K/uL (1.4-6.5) 03/25/22 21:53 Lymph # (Auto) 2.07 K/uL (1.2-3.4) 03/25/22 21:53 [place] # (Auto) 0.72 K/uL (0.11-0.59) H 03/25/22 21:53 Eos # (Auto) 0.17 K/uL (0-0.5) 03/25/22 21:53 Baso # (Auto) 0.01 K/uL (0-0.2) 03/25/22 21:53 Immature Gran # (Auto) 0.02 K/uL (0.00-0.02) 03/25/22 21:53 Sodium 142 mmol/L (136-145) 03/25/22 21:53 Potassium 3.6 mmol/L (3.5-5.1) 03/25/22 21:53 Chloride 107 mmol/L (98-107) 03/25/22 21:53 Carbon Dioxide 26 mmol/L (21-32) 03/25/22 21:53 Anion Gap 9 (3-11) 03/25/22 21:53 BUN 10 mg/dl (6-23) 03/25/22 21:53 Creatinine 0.72 mg/dl (0.6-1.2) 03/25/22 21:53 Est Cr Clr Drug Dosing 95.9 ml/min 03/25/22 21:53 Est GFR ( Amer) 103.3 ml/min 03/25/22 21:53 Est GFR (Non-Af Amer) 89.1 ml/min 03/25/22 21:53 BUN/Creatinine Ratio 13.9 (10-20) 03/25/22 21:53 Glucose 128 mg/dl (70-99(Fasting)) H 03/25/22 21:53 Calcium 9.3 mg/dl (8.5-10.1) 03/25/22 21:53 Magnesium 2.1 mg/dl (1.7-2.4) 03/25/22 21:53 Total Bilirubin 0.5 mg/dl (0.2-1.0) 03/25/22 21:53 AST 19 U/L (13-39) 03/25/22 21:53 ALT 20 U/L (7-52) 03/25/22 21:53 Alkaline Phosphatase 51 U/L (34-104) 03/25/22 21:53 Troponin I High Sens 6.0 pg/ml (0-14) D 03/25/22 21:53 Total Protein 7.5 gm/dl (6.0-8.3) 03/25/22 21:53 Albumin 4.6 gm/dl (3.4-5.0) 03/25/22 21:53 Globulin 2.9 gm/dl (2.5-4.0) 03/25/22 21:53 Albumin/Globulin Ratio 1.6 (0.9-2) 03/25/22 21:53 TSH 3.965 uIu/ml (0.300-4.500) 03/25/22 21:53 Diagnostic Findings Chest x-ray as per my interpretation : Cardiomegaly, elevated right hemidiaphragm, atelectasis EKG as per my interpretation : Rate 135, SVT, normal axis, T wave abnormality septal leads, ST depression lateral leads
[2022-03-25] MEDS ORDERED: DIGOXIN 250 MCG in SYRINGE 9 ML IV STA (23:36)
[2022-03-26] MEDS ORDERED: LORazepam 2 MG/1 ML VIAL IV PRN (01:14)
[2022-03-26] MEDS ORDERED: ACETAMINOPHEN 325 MG TAB PO PRN (01:14)
[2022-03-26] MEDS ORDERED: MoRPHine SULFATE 2 MG/ML CARP IV PRN (01:14)
[2022-03-26] MEDS ORDERED: PROMETHAZINE HCL 12.5 MG in SODIUM CHLORIDE 0.9% 50 ML IV PRN (01:14)
[2022-03-26] MEDS ORDERED: NITROGLYCERIN SL 0.4 MG/TAB TAB SL PRN (01:14)
[2022-03-26] MEDS ORDERED: traMADol HCL 50 MG TABLET PO PRN (01:14)
[2022-03-26] MEDS ORDERED: LACTATED RINGER'S 1,000 ML IV ONE (01:30)
[2022-03-26] MEDS ORDERED: DIGOXIN 250 MCG in SYRINGE 9 ML IV ONE (06:15)
--- NOTE | 2022-03-26 06:25 | XRay Report ---
XR chest 1V portable CLINICAL HISTORY: Dysrhythmia. COMPARISON STUDY: 03/11/2022 TECHNIQUE: 1 view of the chest FINDINGS: Single frontal view of the chest demonstrates the cardiomediastinal silhouette to be within normal li mits. The lungs are clear of alveolar opacities. There is no evidence for pleural effusion. There is no evidence for vascular congestion. There is no acute osseous pathology. IMPRESSION: 1. No acute cardiopulmonary disease. ACT 112: Negative or not required by law. Electronically signed by: Lexa Bowman M.D. 03/26/2022 6:23 AM
[2022-03-26 06:39] LABS: Basophils # (auto) 0.01 K/uL (0-0.2); Basophils % (auto) 0.2 %; Eosinophils # (auto) 0.17 K/uL (0-0.5); Eosinophils % (auto) 3.1 %; Hematocrit (blood only) 38.9 % (37-47); Hemoglobin 13.2 g/dL (12.0-16.0); Immature Granulocytes # (auto) 0.01 K/uL (0.00-0.02); Immature Granulocytes % (auto) 0.2 %; Lymphocytes # (auto) 1.34 K/uL (1.2-3.4); Lymphocytes % (auto) 24.2 %; Mean Corpuscular Hemoglobin 31.7 pg (25-34); Mean Corpuscular Hgb Conc 33.9 g/dL (32-36); Mean Corpuscular Volume 93.3 fL (80-100); Mean Platelet Volume 10.4 fL (7.4-10.4); Monocytes % (auto) 10.8 %; Neutrophils % (auto) 61.5 %; Platelet Count 196 K/uL (130-400); RDW Coefficient of Variation 12.5 % (11.5-14.5); RDW Standard Deviation 42.4 fL (36.4-46.3); Red Blood Count 4.17 M/uL (4.2-5.4); White Blood Count 5.53 K/uL (4.8-10.8)
[2022-03-26] MEDS ORDERED: SOTALOL HCL 80 MG TAB PO SCH ×2 (06:50→09:00)
[2022-03-26 07:02] LABS: Partial Thromboplastin Time 26.8 Seconds (21.0-31.0)
[2022-03-26 07:06] LABS: BUN Creatinine Ratio 15.4 (10-20); Calcium 9.1 mg/dl (8.5-10.1); Creatinine Clr Calc Pharmacy 104.2 ml/min; Est GFR (African American) 109.5 ml/min; Est GFR (Non-African American) 94.5 ml/min; Potassium 4.3 mmol/L (3.5-5.1)
[2022-03-26] MEDS: ROSUVASTATIN CALCIUM 5 MG TAB PO SCH (08:21)
[2022-03-26] MEDS: lisinopril 2.5 MG TAB PO SCH (08:21)
[2022-03-26] MEDS: CLOPIDOGREL BISULFATE 75 MG TAB PO SCH (08:21)
[2022-03-26] MEDS: TIMOLOL MALEATE 0.5% OP SOLN 5 ML BTL OP SCH (08:21)
[2022-03-26] MEDS: PANTOprazole 40 MG TAB PO SCH (08:21)
[2022-03-26] MEDS: APIXABAN 5 MG TABLET PO SCH ×2 (08:21→20:03)
--- NOTE | 2022-03-26 08:29 | Cardiology Consultation ---
Date of Consultation March 26, 2022 Assessment & Plan (1) Atrial fibrillation with rapid ventricular response: (2) CAD (coronary artery disease), redding coronary artery: (3) Atypical chest pain: Patient admitted with recurrent afib while on sotalol 80 mg BID. Patient initiated sotalol approx 2 weeks ago. Dose limited due to bradycardia. Patient reported poor tolerance of sotalol over the last few weeks with symptoms of nausea, fatigue and sinus bradycardia being reported. Recommend stopping sotalol. Held this morning, last dose at 7 PM on 03/25/22. Allow for washout and plans to start Tikosyn tomorrow AM with serial EKG's. She is in agreement to this plan. Cardiac enzymes have been unremarkable. Atypical chest pain not ACS. She will continue chronic anticoagulation with Eliquis 5 mg BID as prescribed. Given recent stent, continue Plavix, lisinopril, statin. Add metoprolol tartrate 12.5 mg BID. Patient is agreeable to several days of hospitalization for Tikosyn initiation. Continue on telemetry Case discussed with Dr. Chamberlain Supervising Physician Co-Signing Physician Notes Patient was seen and examined, chart medications and telemetry personally reviewed. Full assessment well outlined above. Patient currently in sinus rhythm after spontaneous conversion this morning. Last dose of sotalol last evening Patient poorly tolerant of sotalol from multiple aspects including bradycardia and symptomatic complaint with lapse into atrial fibrillation while taking Patient complain of malaise fatigue and atypical chest discomfort which even predated this admission. [place] worse while in atrial fibrillation then in past Discussed atrial fibrillation and its management in detail with patient. Patient has had prior A. fib ablation and longstanding use of flecainide until the development of ischemic heart disease with good tolerance. Patient with borderline tachybradycardia syndrome with poor tolerance of bradycardia arrhythmias and chest discomfort with elevated heart Plan: As above. Begin low-dose metoprolol tartrate orally. Allow sotalol washout and begin Tikosyn with inpatient ekg monitor. Continue anticoagulation with Eliquis History of Present Illness Reason for Consultation: Atrial fibrillation Requesting Physician: Dr. Constantino Attending Physician: Dr. 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 An) for complex history includin. Sinus bradycardia 2. pAF-started on Eliquis 01/2022; flecainide stopped 2010-02/06/2022 after ME/stent; CHADS2-VASc 3 (female, HTN, CAD); H/O atrial flutter [place] [address] Espinoza 3. CAD NSTEMI 01/2022 with PCI to mLAD; the Rt PDA was 99% but too small for a stent 4. HTN 5. HLD 6. Tobacco use-quit 01/2022 7. 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 Recurrent PAF February 2022 off flecainide, started on sotalol Patient evaluated in cardiology office last week on Sotalol. Had been maintaining NSR but noted general nausea, fatigue and not feeling "great" on the medication. However, she thought her symptoms were improving over the last 48 hours, so we decided to continue the sotalol. She also resumed her Protonix around that time. Patient reports she was feeling well over the weekend. Spent the day shopping yesterday without complaints. Last evening she took her PM meds around 7 PM, including the sotalol, and around 9 PM she began to notice worsening SOB, chest pain and palpitations with recurrent afib. She came to the ER for evaluation. Found to be back in AFib RVR. Chest xray was clear. Cardiac enzymes were unremarkable. She did have mild ST/T wave depressions in anterolateral leads while HR's in the 130's. She was given several doses of IV digoxin and her HR's were improving. At time of consult, patient was resting in bed sleeping. Telemetry revealed afib with HR's in the 90-110 range. Went to see the patient and upon awakening her from sleep, patient had 3.9 second conversion pause and converted to NSR. She was asymptomatic with the pause (may have been sleeping). She reports intermittent left sided "burning" sensation. Comes and goes since arrival. Worse with deep inspiration at times. SL nitro without relief. EKG this morning at time of symptoms demonstrated Afib with mildly elevated rates, ST/T wave abnormality improved. She denies other symptoms of SOB, diaphoresis. Ongoing fatigue noted with the sotalol Last dose of sotalol was last evening. Currently patient resting in bed comfortably. No acute distress. Allergies Allergy/AdvReac Type Severity Reaction Status Date / Time Sulfa (Sulfonamide Allergy Unknown CAN'T Verified 03/26/22 00:01 Antibiotics) REMEMBER doxycycline AdvReac Intermediate CAUSED Verified 03/26/22 00:01 A-FIB Home Medications Medication Instructions Recorded Confirmed Type cyanocobalamin (vitamin B-12) 1,000 mcg PO QPM 06/07/19 03/25/22 History 1,000 mcg tablet (Vitamin B-12) magnesium 250 mg tablet 250 mg PO QPM 06/07/19 03/25/22 History cholecalciferol (vitamin D3) 25 25 mcg PO QPM 05/29/20 03/25/22 History mcg (1,000 unit) capsule (Vitamin D3) latanoprost 0.005 % eye drops 1 drp OPB HS 05/29/20 03/25/22 History rosuvastatin 5 mg tablet 5 mg PO DAILY 05/29/20 03/25/22 History timolol maleate 0.5 % eye drops 1 drp OPB QAM 05/29/20 03/25/22 History ascorbic acid (vitamin C) 1,000 mg 1 g PO QPM 02/05/22 03/25/22 History tablet (Vitamin C) apixaban 5 mg tablet (Eliquis) 5 mg PO BID #60 tab 02/07/22 03/25/22 Rx clopidogrel 75 mg tablet 75 mg PO QAM 03/11/22 03/25/22 History lisinopril 2.5 mg tablet 2.5 mg PO QAM 03/11/22 03/25/22 History sotalol 80 mg tablet 80 mg PO BID 30 Days #60 tab 03/14/22 03/25/22 Rx guar gum 1 gram tablet 0 g PO DAILY 03/25/22 03/25/22 History lactobacillus combination no.4 3 0 mmu cells PO DAILY 03/25/22 03/26/22 History billion cell capsule (Probiotic) pantoprazole 40 mg tablet,delayed 40 mg PO DAILY 03/25/22 03/26/22 History release Patient History Medical History (Updated 03/25/22 @ 23:05 by Gwen Irizarry PA-C) A-fib Diverticulosis HTN (hypertension) Family History Other No significant family history Social History Smoking Status: Never smoker Tobacco Type: Cigarettes Cigarettes Per Day: 7; Second Hand Exposure: No; Hx Alcohol Use: No Hx Substance Use: No Preferred Language: Malagasy Communication Ability: Effective Quarter Section Ironer Required: No Beliefs That Will Affect Care: None Current Living Situation: Significant Other Current Living Situation Comment: lives w/ friend - viet navarro 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 [employer] How many Children do You have: 3 Other Information That Helps Us Care for You: No Feels Safe at Home: Yes Safety Concerns: Feels Safe At This Time Assistive Devices: Denture - Lower and Glasses Review of Systems Review of Systems: All systems reviewed & are unremarkable except as noted in HPI & below Physical Exam Constitutional: WD/WN, vitals as above Respiratory: normal respiratory effort, lungs clear to auscultation Cardiovascular: Rate/Rhythm: regular rate and regular rhythm Heart Sounds: normal S1 and normal S2; no murmur Vessels: no JVD Extremities: no edema Gastrointestinal (Abdomen): normal bowel sounds, soft, nontender, no hepatosplenomegaly Skin: no rashes, warm and dry Neurologic: PERRL, EOMI, accommodation nl, no face palsy, no dysarthria Psychiatric: A+Ox3, euthymic affect Results & Data ([facility]) Vital Signs (Past 12 Hours) Vital Signs Temp Pulse Pulse Pulse Resp BP BP 03/26/22 07:44 36.7 C 98 H 18 03/26/22 06:17 104 H 03/26/22 00:45 36.7 C 84 18 142/71 H 03/26/22 00:38 107 H 20 113/69 03/26/22 00:30 107 H 25 H 03/26/22 00:20 112 H 23 03/26/22 00:10 125 H 16 03/26/22 00:00 109 H 23 03/25/22 23:52 128 H 23 03/25/22 23:46 115 H 20 113/69 03/25/22 23:40 106 H 24 03/25/22 23:31 126 H 21 114/60 03/25/22 23:30 106 H 17 03/25/22 23:20 117 H 23 03/25/22 23:10 111 H 23 03/25/22 23:04 124 H 17 102/71 03/25/22 23:00 124 H 17 03/25/22 22:50 108 H 22 03/25/22 22:40 107 H 22 03/25/22 22:32 108 H 20 137/95 03/25/22 22:30 120 H 19 03/25/22 22:20 119 H 26 H 03/25/22 22:10 124 H 22 03/25/22 22:00 134 H 18 135/90 03/25/22 21:56 125 H 17 03/25/22 21:54 115 H 20 121/76 03/25/22 21:40 35.3 C L 117 H 20 112/78 BP Pulse Ox Pulse Ox 03/26/22 07:44 130/71 96 03/26/22 06:17 03/26/22 00:45 142/71 H 96 96 03/26/22 00:38 98 03/26/22 00:30 03/26/22 00:20 03/26/22 00:10 03/26/22 00:00 03/25/22 23:52 03/25/22 23:46 96 03/25/22 23:40 03/25/22 23:31 03/25/22 23:30 03/25/22 23:20 03/25/22 23:10 03/25/22 23:04 03/25/22 23:00 03/25/22 22:50 03/25/22 22:40 03/25/22 22:32 03/25/22 22:30 03/25/22 22:20 03/25/22 22:10 03/25/22 22:00 03/25/22 21:56 03/25/22 21:54 95 03/25/22 21:40 95 Laboratory Results 03/26/22 03/26/22 03/26/22 Range/Units 06:32 06:32 06:32 WBC (4.8-10.8) K/uL RBC (4.2-5.4) M/uL Hgb (12.0-16.0) g/dL Hct (37-47) % MCV (80-100) fL MCH (25-34) pg MCHC (32-36) g/dL RDW Std Deviation (36.4-46.3) fL RDW Coeff of Adeel (11.5-14.5) % Plt Count (130-400) K/uL MPV (7.4-10.4) fL Immature Gran % (Auto) % Neut % (Auto) % Lymph % (Auto) % [place] % (Auto) % Eos % (Auto) % Baso % (Auto) % Neut # (Auto) (1.4-6.5) K/uL Lymph # (Auto) (1.2-3.4) K/uL [place] # (Auto) (0.11-0.59) K/uL Eos # (Auto) (0-0.5) K/uL Baso # (Auto) (0-0.2) K/uL Immature Gran # (Auto) (0.00-0.02) K/uL APTT 26.8 (21.0-31.0) Seconds PTT Ratio 1.0 Sodium 143 (136-145) mmol/L Potassium 4.3 (3.5-5.1) mmol/L Chloride 112 H (98-107) mmol/L Carbon Dioxide 25 (21-32) mmol/L Anion Gap 6 (3-11) BUN 10 (6-23) mg/dl Creatinine 0.65 (0.6-1.2) mg/dl Est Cr Clr Drug Dosing 104.2 ml/min Est GFR ( Amer) 109.5 ml/min Est GFR (Non-Af Amer) 94.5 ml/min BUN/Creatinine Ratio 15.4 (10-20) Glucose 116 H (70-99(Fasting)) mg/dl Calcium 9.1 (8.5-10.1) mg/dl Magnesium (1.7-2.4) mg/dl Total Bilirubin (0.2-1.0) mg/dl AST (13-39) U/L ALT (7-52) U/L Alkaline Phosphatase (34-104) U/L Troponin I High Sens 10.7 (0-14) pg/ml Total Protein (6.0-8.3) gm/dl Albumin (3.4-5.0) gm/dl Globulin (2.5-4.0) gm/dl Albumin/Globulin Ratio (0.9-2) TSH (0.300-4.500) uIu/ml SARS-CoV-2, RNA, NAAT (NEGATIVE) 03/26/22 03/25/22 03/25/22 Range/Units 06:32 23:43 23:07 WBC 5.53 (4.8-10.8) K/uL RBC 4.17 L (4.2-5.4) M/uL Hgb 13.2 (12.0-16.0) g/dL Hct 38.9 (37-47) % MCV 93.3 (80-100) fL MCH 31.7 (25-34) pg MCHC 33.9 (32-36) g/dL RDW Std Deviation 42.4 (36.4-46.3) fL RDW Coeff of Adeel 12.5 (11.5-14.5) % Plt Count 196 (130-400) K/uL MPV 10.4 (7.4-10.4) fL Immature Gran % (Auto) 0.2 % Neut % (Auto) 61.5 % Lymph % (Auto) 24.2 % [place] % (Auto) 10.8 % Eos % (Auto) 3.1 % Baso % (Auto) 0.2 % Neut # (Auto) 3.40 (1.4-6.5) K/uL Lymph # (Auto) 1.34 (1.2-3.4) K/uL [place] # (Auto) 0.60 H (0.11-0.59) K/uL Eos # (Auto) 0.17 (0-0.5) K/uL Baso # (Auto) 0.01 (0-0.2) K/uL Immature Gran # (Auto) 0.01 (0.00-0.02) K/uL APTT (21.0-31.0) Seconds PTT Ratio Sodium (136-145) mmol/L Potassium (3.5-5.1) mmol/L Chloride (98-107) mmol/L Carbon Dioxide (21-32) mmol/L Anion Gap (3-11) BUN (6-23) mg/dl Creatinine (0.6-1.2) mg/dl Est Cr Clr Drug Dosing ml/min Est GFR ( Amer) ml/min Est GFR (Non-Af Amer) ml/min BUN/Creatinine Ratio (10-20) Glucose (70-99(Fasting)) mg/dl Calcium (8.5-10.1) mg/dl Magnesium (1.7-2.4) mg/dl Total Bilirubin (0.2-1.0) mg/dl AST (13-39) U/L ALT (7-52) U/L Alkaline Phosphatase (34-104) U/L Troponin I High Sens 8.2 (0-14) pg/ml Total Protein (6.0-8.3) gm/dl Albumin (3.4-5.0) gm/dl Globulin (2.5-4.0) gm/dl Albumin/Globulin Ratio (0.9-2) TSH (0.300-4.500) uIu/ml SARS-CoV-2, RNA, NAAT NEGATIVE (NEGATIVE) 03/25/22 03/25/22 03/25/22 Range/Units 21:53 21:53 21:53 WBC 7.08 (4.8-10.8) K/uL RBC 4.32 (4.2-5.4) M/uL Hgb 13.7 (12.0-16.0) g/dL Hct 40.5 (37-47) % MCV 93.8 (80-100) fL MCH 31.7 (25-34) pg MCHC 33.8 (32-36) g/dL RDW Std Deviation 42.3 (36.4-46.3) fL RDW Coeff of Adeel 12.4 (11.5-14.5) % Plt Count 216 (130-400) K/uL MPV 10.6 H (7.4-10.4) fL Immature Gran % (Auto) 0.3 % Neut % (Auto) 57.8 % Lymph % (Auto) 29.2 % [place] % (Auto) 10.2 % Eos % (Auto) 2.4 % Baso % (Auto) 0.1 % Neut # (Auto) 4.09 (1.4-6.5) K/uL Lymph # (Auto) 2.07 (1.2-3.4) K/uL [place] # (Auto) 0.72 H (0.11-0.59) K/uL Eos # (Auto) 0.17 (0-0.5) K/uL Baso # (Auto) 0.01 (0-0.2) K/uL Immature Gran # (Auto) 0.02 (0.00-0.02) K/uL APTT (21.0-31.0) Seconds PTT Ratio Sodium 142 (136-145) mmol/L Potassium 3.6 (3.5-5.1) mmol/L Chloride 107 (98-107) mmol/L Carbon Dioxide 26 (21-32) mmol/L Anion Gap 9 (3-11) BUN 10 (6-23) mg/dl Creatinine 0.72 (0.6-1.2) mg/dl Est Cr Clr Drug Dosing 95.9 ml/min Est GFR ( Amer) 103.3 ml/min Est GFR (Non-Af Amer) 89.1 ml/min BUN/Creatinine Ratio 13.9 (10-20) Glucose 128 H (70-99(Fasting)) mg/dl Calcium 9.3 (8.5-10.1) mg/dl Magnesium 2.1 (1.7-2.4) mg/dl Total Bilirubin 0.5 (0.2-1.0) mg/dl AST 19 (13-39) U/L ALT 20 (7-52) U/L Alkaline Phosphatase 51 (34-104) U/L Troponin I High Sens 6.0 D (0-14) pg/ml Total Protein 7.5 (6.0-8.3) gm/dl Albumin 4.6 (3.4-5.0) gm/dl Globulin 2.9 (2.5-4.0) gm/dl Albumin/Globulin Ratio 1.6 (0.9-2) TSH 3.965 (0.300-4.500) uIu/ml SARS-CoV-2, RNA, NAAT (NEGATIVE) Diagnostic Findings EKG on arrival: Atrial fibrillation with RVR. ST/T wave depression in anterolateral leads. Repeat EKG this morning: Afib improved rates, improved ST depression Chest xray on admission: Clear, no acute process Telemetry reviewed: afib with RVR on initial review. Then upon entering patient's room, she had approx 3.9 second conversion pause to NSR. Medications Administered Current Inpatient Medications Acetaminophen (Acetaminophen 325 Mg Tab) 650 mg PO Q4H PRN PRN Reason: Pain or Fever Stop: 04/25/22 01:13 Apixaban (Apixaban 5 Mg Tablet) 5 mg PO BID [facility] Stop: 04/25/22 08:59 Last Admin: 03/26/22 08:21 Dose: 5 mg Documented by: Clopidogrel Bisulfate (Clopidogrel Bisulfate 75 Mg Tab) 75 mg PO QAM [facility] Stop: 04/25/22 08:59 Last Admin: 03/26/22 08:21 Dose: 75 mg Documented by: Cyanocobalamin (Cyanocobalamin (B-12) 500 Mcg Tablet) 1,000 mcg PO QPM [facility] Stop: 04/25/22 20:59 Lactated Ringer's (Lr) 1,000 mls @ 60 mls/hr IV .[id number] ONE Stop: 03/26/22 18:09 Last Admin: 03/26/22 03:21 Dose: 60 mls/hr Documented by: Promethazine HCl 12.5 mg/ (Sodium Chloride) 50.5 mls @ 202 mls/hr IV Q6H PRN PRN Reason: Nausea And Vomiting Stop: 04/25/22 01:13 Latanoprost (Latanoprost 0.005% Op Soln 2.5 Ml Btl) 1 drops OPB HS [facility] Stop: 04/25/22 20:59 Lisinopril (Lisinopril 2.5 Mg Tab) 2.5 mg PO QAM [facility] Stop: 04/25/22 08:59 Last Admin: 03/26/22 08:21 Dose: 2.5 mg Documented by: Lorazepam (Lorazepam 2 Mg/1 Ml Vial) 0.5 mg IV Q4H PRN PRN Reason: Anxiety Stop: 04/25/22 01:13 Magnesium Oxide (Magnesium Oxide 400 Mg Tab) 400 mg PO QPM [facility] Stop: 04/25/22 20:59 Metoprolol Tartrate (Metoprolol Tartrate 25 Mg Tab) 12.5 mg PO BID [facility] Stop: 04/25/22 09:44 Morphine Sulfate (Morphine Sulfate 2 Mg/Ml Carp) 2 mg IV Q3H PRN PRN Reason: Pain Stop: 04/09/22 01:13 Nitroglycerin (Nitroglycerin Sl 0.4 Mg/Tab Tab) 0.4 mg SL UD PRN PRN Reason: Chest Pain Stop: 04/25/22 01:13 Last Admin: 03/26/22 08:20 Dose: 0.4 mg Documented by: Pantoprazole Sodium (Pantoprazole 40 Mg Tab) 40 mg PO DAILY [facility] Stop: 04/25/22 08:59 Last Admin: 03/26/22 08:21 Dose: 40 mg Documented by: Rosuvastatin Calcium (Rosuvastatin Calcium 5 Mg Tab) 5 mg PO DAILY [facility] Stop: 04/25/22 08:59 Last Admin: 03/26/22 08:21 Dose: 5 mg Documented by: Sotalol HCl (Sotalol Hcl 80 Mg Tab) 80 mg PO BID [facility] Stop: 04/25/22 06:49 Timolol Maleate (Timolol Maleate 0.5% Op Soln 5 Ml Btl) 1 drops OP QAM [facility] Stop: 04/25/22 08:59 Last Admin: 03/26/22 08:21 Dose: 1 drops Documented by: Tramadol HCl (Tramadol Hcl 50 Mg Tablet) 25 - 50 mg PO Q4H PRN PRN Reason: Pain Stop: 04/25/22 01:13
[2022-03-26] MEDS: METOPROLOL TARTRATE 25 MG TAB PO SCH ×2 (10:33→20:01)
[2022-03-26] MEDS: CYANOCOBALAMIN (B-12) 500 MCG TABLET PO SCH (20:02)
[2022-03-26] MEDS: MAGNESIUM OXIDE 400 MG TAB PO SCH (20:03)
[2022-03-26] MEDS: LATANOPROST 0.005% OP SOLN 2.5 ML BTL OPB SCH (20:03)
--- NOTE | 2022-03-26 22:27 | Hospitalist Progress Note ---
Date of Service March 26, 2022 Assessment & Plan (1) Atrial fibrillation with rapid ventricular response: Plan: Recurrent A. fib Hx PAF/Afl status post ablation Present on admission with afib RVR with rate 133 received Metoprolol 2.5mgx1 and Digoxinx3 on admission Cardiology on board Sotalol discontinued Tele monitor showed NSR with bradycardia with frequent pauses Continue Dior Plan to start on Tikosyn while sotalol washout Continue monitor EKG CAD status post stent last month Continue Plavix, eliquis, statin, metoprolol and Lisinopril Asymptomatic Hypertension BP stable Continue Lisinopril and Metoprolol YFN Non compliance with CPAP DVT prophylaxis. Dior Full code Admission and Anticipated Discharge Date Admission Date: March 25, 2022 Subjective Pt was seen and examined for follow up of palpitation, chest pain and SOB Lying in bed with no acute distress eating Pt said that se feels ok currently She has been having brief episodes of pause on tele monitor She was converted to NSR this morning Denies any chest pain, palpitation, dizziness and SOB Review of Systems Review of Systems: All systems reviewed & are unremarkable except as noted in Subjective Physical Exam Physical Exam: General- No acute distress Head- atraumatic Eyes- PERRL, EOMI, ENT- oropharynx clear Neck- supple, no JVD Lungs- clear to auscultation Heart- +bradycardia Abdomen- normal bowel sounds, soft, nontender Extremities- no calf tenderness Neuro- alert, oriented x 3; PERRL, EOMI; no facial palsy; no dysarthria Skin- warm & dry Results & Data Results & Data ([facility]) Vital Signs (Past 12 Hours) Vital Signs Temp Pulse Pulse Pulse Resp BP Pulse Ox 03/26/22 19:46 36.7 C 51 L 17 124/60 96 03/26/22 15:46 36.8 C 56 L 17 118/74 97 03/26/22 14:18 52 L 03/26/22 11:22 36.8 C 54 L 18 137/78 97 03/26/22 10:53 33 L 03/26/22 10:31 36.5 C 58 L 16 143/71 H 96
--- NOTE | 2022-03-27 06:13 | Electrocardiogram Report ---
Test Reason : Blood Pressure : / mmHG Vent. Rate : 133 BPM Atrial Rate : 133 BPM P-R Int : 000 ms QRS Dur : 088 ms QT Int : 322 ms P-R-T Axes : 000 012 081 degrees QTc Int : 479 ms Atrial fibrillation with rapid ventricular response Nonspecific ST and T wave abnormality Abnormal ECG When compared with ECG of 14-MAR-2022 10:06, Atrial fibrillation has replaced Sinus rhythm Vent. rate has increased BY [address] now depressed in Anterolateral leads Confirmed by Ignacio Cardoza ([id number]) on 03/27/2022 6:12:50 AM Referred By: REFERRED SELF Confirmed By:Ignacio Cardoza
--- NOTE | 2022-03-27 06:20 | Electrocardiogram Report ---
Test Reason : Blood Pressure : / mmHG Vent. Rate : 104 BPM Atrial Rate : 144 BPM P-R Int : 000 ms QRS Dur : 088 ms QT Int : 348 ms P-R-T Axes : 000 001 052 degrees QTc Int : 457 ms Atrial fibrillation with rapid ventricular response When compared with ECG of 25-MAR-2022 21:48, ST no longer depressed in Anterolateral leads Confirmed by Ignacio Cardoza ([id number]) on 03/27/2022 6:19:55 AM Referred By: REFERRED SELF Confirmed By:Ignacio Cardoza
[2022-03-27] MEDS: APIXABAN 5 MG TABLET PO SCH ×2 (08:21→20:45)
[2022-03-27] MEDS: lisinopril 2.5 MG TAB PO SCH (08:21)
[2022-03-27] MEDS: PANTOprazole 40 MG TAB PO SCH (08:21)
[2022-03-27] MEDS: METOPROLOL TARTRATE 25 MG TAB PO SCH (08:21)
[2022-03-27] MEDS: CLOPIDOGREL BISULFATE 75 MG TAB PO SCH (08:21)
[2022-03-27] MEDS: ROSUVASTATIN CALCIUM 5 MG TAB PO SCH (08:21)
[2022-03-27] MEDS: TIMOLOL MALEATE 0.5% OP SOLN 5 ML BTL OP SCH (08:22)
[2022-03-27] MEDS: DOFETILIDE 125 MCG CAPSULE PO SCH ×2 (09:52→20:45)
--- NOTE | 2022-03-27 09:52 | Cardiology Progress Note ---
Date of Service March 27, 2022 Assessment & Plan (1) Atrial fibrillation with rapid ventricular response: (2) CAD (coronary artery disease), [place] coronary artery: (3) Atypical chest pain: Plan: Patient admitted with recurrent afib while on sotalol 80 mg BID. Patient initiated sotalol approx 2 weeks ago. Dose limited due to bradycardia. Patient reported poor tolerance of sotalol over the last few weeks with symptoms of nausea, fatigue and sinus bradycardia being reported. Sotalol held on admission. During 24 hour washout, she spontaneously converted to NSR. Tikosyn 500 mg BID to be started this morning. EKG prior to 1st dose was stable with sinus annabelle and acceptable QT/QTc 450/406 ms EKG to be done 1 hour after 1st dose and 1 hour after PM dose tonight. Discussed with nursing staff. Cardiac enzymes have been unremarkable. Atypical chest pain not ACS. She will continue chronic anticoagulation with Eliquis 5 mg BID as prescribed. Given recent stent, continue Plavix, lisinopril, statin. Metoprolol tartrate 12.5 mg BID prescribed/trialed but due to bradycardia, now on hold. Case discussed with Dr. Chamberlain. Will follow. Admission and Anticipated Discharge Date Admission Date: March 27, 2022 Supervising Physician Co-Signing Physician Notes Patient was seen and examined, chart, medications, telemetry reviewed. Patient without symptoms only concerned that blood pressure is increasing. Is very leery regarding any changes in medications including recent addition of dofetilide. Patient tolerated initial dose without significant QTc prolongation. I discussed management of atrial fibrillation and the drugs used in detail as well as tachybradycardia syndrome, indications for ablation as well as pacemaker insertion. Patient will require antiarrhythmic therapy to maintain sinus rhythm as course in rhythm control management, fail antiarrhythmic therapy prior to consideration of A. fib ablation No current indications for pacemaker insertion Continue dofetilide load on telemetry Subjective Patient resting out of bed comfortably. Slept well. She denies recurrent chest pain. No dizziness or lightheadedness. No palpitations. No orthopnea, PND or edema. Review of Systems Review of Systems: All systems reviewed & are unremarkable except as noted in HPI & below Physical Exam Constitutional: WD/WN, vitals as above Respiratory: normal respiratory effort, lungs clear to auscultation Cardiovascular: Rate/Rhythm: regular rate and regular rhythm Heart Sounds: normal S1 and normal S2; no murmur Vessels: no JVD Extremities: no edema Gastrointestinal (Abdomen): normal bowel sounds, soft, nontender, no hepatosplenomegaly Skin: no rashes, warm and dry Neurologic: PERRL, EOMI, accommodation nl, no face palsy, no dysarthria Psychiatric: A+Ox3, euthymic affect Results & Data ([facility]) Vital Signs (Past 12 Hours) Vital Signs Temp Pulse Pulse Resp BP Pulse Ox Pulse Ox 03/27/22 08:17 36.8 C 52 L 18 132/66 96 03/27/22 04:27 36.5 C 56 L 18 132/81 96 03/27/22 01:14 98 03/26/22 22:59 36.8 C 5 L 20 120/72 96 03/26/22 22:20 50 L Laboratory Results 03/26/22 Range/Units 06:32 Magnesium 2.2 (1.7-2.4) mg/dl Diagnostic Findings Telemetry reviewed: NSR and Sinus bradycardia with HR's predominantly in the 50's. No recurrent pauses since yesterday morning. EKG this morning (pre Tikosyn) Sinus bradycardia No changes QT/QTc 450/406 ms Medications Administered Current Inpatient Medications Acetaminophen (Acetaminophen 325 Mg Tab) 650 mg PO Q4H PRN PRN Reason: Pain or Fever Stop: 04/25/22 01:13 Apixaban (Apixaban 5 Mg Tablet) 5 mg PO BID [facility] Stop: 04/25/22 08:59 Last Admin: 03/27/22 08:21 Dose: 5 mg Documented by: Clopidogrel Bisulfate (Clopidogrel Bisulfate 75 Mg Tab) 75 mg PO QAM [facility] Stop: 04/25/22 08:59 Last Admin: 03/27/22 08:21 Dose: 75 mg Documented by: Cyanocobalamin (Cyanocobalamin (B-12) 500 Mcg Tablet) 1,000 mcg PO QPM [facility] Stop: 04/25/22 20:59 Last Admin: 03/26/22 20:02 Dose: 1,000 mcg Documented by: Dofetilide (Dofetilide 125 Mcg Capsule) 500 mcg PO BID [facility] Stop: 04/26/22 08:59 Promethazine HCl 12.5 mg/ (Sodium Chloride) 50.5 mls @ 202 mls/hr IV Q6H PRN PRN Reason: Nausea And Vomiting Stop: 04/25/22 01:13 Latanoprost (Latanoprost 0.005% Op Soln 2.5 Ml Btl) 1 drops OPB HS [facility] Stop: 04/25/22 20:59 Last Admin: 03/26/22 20:03 Dose: 1 drops Documented by: Lisinopril (Lisinopril 2.5 Mg Tab) 2.5 mg PO QAM [facility] Stop: 04/25/22 08:59 Last Admin: 03/27/22 08:21 Dose: 2.5 mg Documented by: Lorazepam (Lorazepam 2 Mg/1 Ml Vial) 0.5 mg IV Q4H PRN PRN Reason: Anxiety Stop: 04/25/22 01:13 Magnesium Oxide (Magnesium Oxide 400 Mg Tab) 400 mg PO QPM [facility] Stop: 04/25/22 20:59 Last Admin: 03/26/22 20:03 Dose: 400 mg Documented by: Metoprolol Tartrate (Metoprolol Tartrate 25 Mg Tab) 12.5 mg PO BID [facility] Stop: 04/25/22 09:44 Last Admin: 03/27/22 08:21 Dose: Not Given Documented by: Morphine Sulfate (Morphine Sulfate 2 Mg/Ml Carp) 2 mg IV Q3H PRN PRN Reason: Pain Stop: 04/09/22 01:13 Nitroglycerin (Nitroglycerin Sl 0.4 Mg/Tab Tab) 0.4 mg SL UD PRN PRN Reason: Chest Pain Stop: 04/25/22 01:13 Last Admin: 03/26/22 08:20 Dose: 0.4 mg Documented by: Pantoprazole Sodium (Pantoprazole 40 Mg Tab) 40 mg PO DAILY [facility] Stop: 04/25/22 08:59 Last Admin: 03/27/22 08:21 Dose: 40 mg Documented by: Rosuvastatin Calcium (Rosuvastatin Calcium 5 Mg Tab) 5 mg PO DAILY [facility] Stop: 04/25/22 08:59 Last Admin: 03/27/22 08:21 Dose: 5 mg Documented by: Timolol Maleate (Timolol Maleate 0.5% Op Soln 5 Ml Btl) 1 drops OP QAM [facility] Stop: 04/25/22 08:59 Last Admin: 03/27/22 08:22 Dose: 1 drops Documented by: Tramadol HCl (Tramadol Hcl 50 Mg Tablet) 25 - 50 mg PO Q4H PRN PRN Reason: Pain Stop: 04/25/22 01:13
[2022-03-27] MEDS: CYANOCOBALAMIN (B-12) 500 MCG TABLET PO SCH (20:44)
[2022-03-27] MEDS: MAGNESIUM OXIDE 400 MG TAB PO SCH (20:44)
[2022-03-27] MEDS: LATANOPROST 0.005% OP SOLN 2.5 ML BTL OPB SCH (20:45)
--- NOTE | 2022-03-27 23:18 | Hospitalist Progress Note ---
Date of Service March 27, 2022 Assessment & Plan (1) Atrial fibrillation with rapid ventricular response: Plan: Recurrent A. fib Hx PAF/Afl status post ablation Present on admission with afib RVR with rate 133 received Metoprolol 2.5mgx1 and Digoxinx3 on admission Cardiology on board Sotalol discontinued Tele monitor showed NSR Starting on Tikosyn 500mg BID Metoprolol 12.5 mg was starting yesterday but pt did not get it due to bradycardia Continue Eliquis Continue monitor EKG CAD status post stent last month Continue Plavix, eliquis, statin, metoprolol and Lisinopril Asymptomatic Hypertension BP stable Continue Lisinopril and Metoprolol YFN Non compliance with CPAP DVT prophylaxis. Eliquis Full code Admission and Anticipated Discharge Date Admission Date: March 27, 2022 Subjective Pt was seen and examined for follow up of chest discomfort/palpitation and sob Sitting in chair with no acute distress Pt said that she slept well Denies any chest pain, palpitation, dizziness and sob currently Review of Systems Review of Systems: All systems reviewed & are unremarkable except as noted in Subjective Physical Exam Physical Exam: General- No acute distress Head- atraumatic Eyes- PERRL, EOMI, ENT- oropharynx clear Neck- supple, no JVD Lungs- clear to auscultation Heart- +bradycardia Abdomen- normal bowel sounds, soft, nontender Extremities- no calf tenderness Neuro- alert, oriented x 3; PERRL, EOMI; no facial palsy; no dysarthria Skin- warm & dry Results & Data Results & Data ([facility]) Vital Signs (Past 12 Hours) Vital Signs Temp Pulse Pulse Resp BP Pulse Ox 03/27/22 19:10 36.5 C 49 L 18 155/73 H 96 03/27/22 15:41 36.6 C 48 L 18 164/70 H 96 03/27/22 14:00 52 L 147/70 H 03/27/22 11:54 36.7 C 45 L 18 172/95 H 95
[2022-03-28 07:45] LABS: Calcium 9.1 mg/dl (8.5-10.1); Creatinine Clr Calc Pharmacy 112.4 ml/min; Est GFR (African American) 111.8 ml/min; Est GFR (Non-African American) 96.5 ml/min; Potassium 3.9 mmol/L (3.5-5.1)
[2022-03-28] MEDS: TIMOLOL MALEATE 0.5% OP SOLN 5 ML BTL OP SCH (08:23)
[2022-03-28] MEDS: CLOPIDOGREL BISULFATE 75 MG TAB PO SCH (08:24)
[2022-03-28] MEDS: ROSUVASTATIN CALCIUM 5 MG TAB PO SCH (08:24)
[2022-03-28] MEDS: APIXABAN 5 MG TABLET PO SCH ×2 (08:24→21:07)
[2022-03-28] MEDS: DOFETILIDE 125 MCG CAPSULE PO SCH ×2 (08:24→21:06)
[2022-03-28] MEDS: lisinopril 2.5 MG TAB PO SCH (08:24)
[2022-03-28] MEDS: PANTOprazole 40 MG TAB PO SCH (08:24)
[2022-03-28] MEDS ORDERED: lisinopril 2.5 MG TAB PO ONE (11:18)
--- NOTE | 2022-03-28 11:25 | Cardiology Progress Note ---
Date of Service March 28, 2022 Assessment & Plan (1) Atrial fibrillation with rapid ventricular response: (2) CAD (coronary artery disease), [place] coronary artery: (3) Atypical chest pain: (4) HTN (hypertension): Plan: Patient admitted with recurrent afib while on sotalol 80 mg BID. Patient initiated sotalol approx 2 weeks ago. Dose limited due to bradycardia. Patient reported poor tolerance of sotalol over the last few weeks with symptoms of nausea, fatigue and sinus bradycardia being reported. Sotalol held on admission. During 24 hour washout, she spontaneously converted to NSR. Tikosyn 500 mg BID started yesterday. Stable EKG findings after each dose with acceptable QT/QTc measurements. No recurrent afib noted on telemetry. Repeat EKG tonight after PM dose of Tikosyn Cardiac enzymes have been unremarkable. Atypical chest pain not ACS. She has been hypertensive over the last 24 hours. Likely strong situational component. Increase lisinopril from 2.5 mg to 10 mg daily. She will continue chronic anticoagulation with Eliquis 5 mg BID as prescribed. Given recent stent, continue Plavix, lisinopril, statin. Metoprolol tartrate 12.5 mg BID prescribed/trialed but due to bradycardia, stopped. Borderline tachybrady. Case discussed with Dr. Chamberlain. Will follow. Admission and Anticipated Discharge Date Admission Date: March 27, 2022 Supervising Physician Co-Signing Physician Notes Patient seen and examined telemetry reviewed. Assessment and plan as above. EKG this morning after third dose of dofetilide QTC corrected 435 with good tolerance no arrhythmias on telemetry. Blood pressures being addressed as above Continue telemetry Subjective Patient resting comfortably. Notes ongoing headache since yesterday. BP remains elevated today. Denies chest pain. No palpitations. EKG and telemetry with stable findings. No dizziness or lightheadedness. Review of Systems Review of Systems: All systems reviewed & are unremarkable except as noted in HPI & below Physical Exam Constitutional: WD/WN, vitals as above Respiratory: normal respiratory effort, lungs clear to auscultation Cardiovascular: Rate/Rhythm: regular rate and regular rhythm Heart Sounds: normal S1 and normal S2; no murmur Vessels: no JVD Extremities: no edema Gastrointestinal (Abdomen): normal bowel sounds, soft, nontender, no hepatosplenomegaly Skin: no rashes, warm and dry Neurologic: PERRL, EOMI, accommodation nl, no face palsy, no dysarthria Psychiatric: A+Ox3, euthymic affect Results & Data ([facility]) Vital Signs (Past 12 Hours) Vital Signs Temp Pulse Pulse Resp BP BP Pulse Ox 03/28/22 08:05 49 L 03/28/22 07:39 36.5 C 52 L 18 170/62 H 96 03/28/22 03:49 36.8 C 55 L 18 135/77 95 03/28/22 01:52 49 L 03/28/22 01:00 03/27/22 23:24 36.4 C L 54 L 16 146/73 H 95 Pulse Ox 03/28/22 08:05 03/28/22 07:39 03/28/22 03:49 03/28/22 01:52 03/28/22 01:00 97 03/27/22 23:24 Laboratory Results 03/28/22 Range/Units 06:06 Sodium 141 (136-145) mmol/L Potassium 3.9 (3.5-5.1) mmol/L Chloride 108 H (98-107) mmol/L Carbon Dioxide 24 (21-32) mmol/L Anion Gap 9 (3-11) BUN 11 (6-23) mg/dl Creatinine 0.61 (0.6-1.2) mg/dl Est Cr Clr Drug Dosing 112.4 ml/min Est GFR ( Amer) 111.8 ml/min Est GFR (Non-Af Amer) 96.5 ml/min BUN/Creatinine Ratio 18.0 (10-20) Glucose 108 H (70-99(Fasting)) mg/dl Calcium 9.1 (8.5-10.1) mg/dl Diagnostic Findings Telemetry reviewed: NSR, SInus bradycardia with HR's predominantly in the 50's and low 60's. No recurrent atrial fibrillation EKG this morning pre Tikosyn reviewed: sinus bradycardia, no acute changes. QT/QTC 476/459 ms EKG reviewed post Tikosyn reviewed: Sinus bradycardia, stable findings. QT/QTC 468/435 ms Medications Administered Current Inpatient Medications Acetaminophen (Acetaminophen 325 Mg Tab) 650 mg PO Q4H PRN PRN Reason: Pain or Fever Stop: 04/25/22 01:13 Last Admin: 03/27/22 12:34 Dose: 650 mg Documented by: Apixaban (Apixaban 5 Mg Tablet) 5 mg PO BID [facility] Stop: 04/25/22 08:59 Last Admin: 03/28/22 08:24 Dose: 5 mg Documented by: Clopidogrel Bisulfate (Clopidogrel Bisulfate 75 Mg Tab) 75 mg PO QAM [facility] Stop: 04/25/22 08:59 Last Admin: 03/28/22 08:24 Dose: 75 mg Documented by: Cyanocobalamin (Cyanocobalamin (B-12) 500 Mcg Tablet) 1,000 mcg PO QPM [facility] Stop: 04/25/22 20:59 Last Admin: 03/27/22 20:44 Dose: 1,000 mcg Documented by: Dofetilide (Dofetilide 125 Mcg Capsule) 500 mcg PO BID [facility] Stop: 04/26/22 08:59 Last Admin: 03/28/22 08:24 Dose: 500 mcg Documented by: Promethazine HCl 12.5 mg/ (Sodium Chloride) 50.5 mls @ 202 mls/hr IV Q6H PRN PRN Reason: Nausea And Vomiting Stop: 04/25/22 01:13 Latanoprost (Latanoprost 0.005% Op Soln 2.5 Ml Btl) 1 drops OPB HS [facility] Stop: 04/25/22 20:59 Last Admin: 03/27/22 20:45 Dose: 1 drops Documented by: Lisinopril (Lisinopril 2.5 Mg Tab) 7.5 mg PO NOW ONE Stop: 03/28/22 11:19 Lisinopril (Lisinopril 10 Mg Tab) 10 mg PO QAM [facility] Stop: 04/28/22 08:59 Lorazepam (Lorazepam 2 Mg/1 Ml Vial) 0.5 mg IV Q4H PRN PRN Reason: Anxiety Stop: 04/25/22 01:13 Magnesium Oxide (Magnesium Oxide 400 Mg Tab) 400 mg PO QPM [facility] Stop: 04/25/22 20:59 Last Admin: 03/27/22 20:44 Dose: 400 mg Documented by: Metoprolol Tartrate (Metoprolol Tartrate 25 Mg Tab) 12.5 mg PO BID [facility] Stop: 04/25/22 09:44 Last Admin: 03/27/22 08:21 Dose: Not Given Documented by: Morphine Sulfate (Morphine Sulfate 2 Mg/Ml Carp) 2 mg IV Q3H PRN PRN Reason: Pain Stop: 04/09/22 01:13 Nitroglycerin (Nitroglycerin Sl 0.4 Mg/Tab Tab) 0.4 mg SL UD PRN PRN Reason: Chest Pain Stop: 04/25/22 01:13 Last Admin: 03/26/22 08:20 Dose: 0.4 mg Documented by: Pantoprazole Sodium (Pantoprazole 40 Mg Tab) 40 mg PO DAILY [facility] Stop: 04/25/22 08:59 Last Admin: 03/28/22 08:24 Dose: 40 mg Documented by: Rosuvastatin Calcium (Rosuvastatin Calcium 5 Mg Tab) 5 mg PO DAILY [facility] Stop: 04/25/22 08:59 Last Admin: 03/28/22 08:24 Dose: 5 mg Documented by: Timolol Maleate (Timolol Maleate 0.5% Op Soln 5 Ml Btl) 1 drops OP QAM [facility] Stop: 04/25/22 08:59 Last Admin: 03/28/22 08:23 Dose: 1 drops Documented by: Tramadol HCl (Tramadol Hcl 50 Mg Tablet) 25 - 50 mg PO Q4H PRN PRN Reason: Pain Stop: 04/25/22 01:13 (1) HTN (hypertension) Hypertension type: unspecified Qualified Code(s): I10 - Essential (primary) hypertension
--- NOTE | 2022-03-28 15:35 | Hospitalist Progress Note ---
Date of Service March 28, 2022 Assessment & Plan (1) Atrial fibrillation with rapid ventricular response: Plan: Recurrent A. fib Hx PAF/Afl status post ablation Present on admission with afib RVR with rate 133 received Metoprolol 2.5mgx1 and Digoxinx3 on admission Cardiology on board Sotalol discontinued Tele monitor showed NSR Continue Tikosyn 500mg BID Metoprolol 12.5 mg on hold due to bradycardia Continue Eliquis Continue monitor EKG CAD status post stent last month Continue Plavix, eliquis, statin, metoprolol and Lisinopril Asymptomatic Hypertension BP elevated Lisinopril increased to 10mg daily Continue monitor BP YFN Non compliance with CPAP DVT prophylaxis. Eliquis Full code Admission and Anticipated Discharge Date Admission Date: March 27, 2022 Subjective Pt was seen and examined for follow up of chest discomfort/palpitation and sob Sitting in chair with no acute distress comfortable Pt said that she slept well last night Her BP elevates this morning Denies any chest pain, palpitation, dizziness and SOB Review of Systems Review of Systems: All systems reviewed & are unremarkable except as noted in Subjective Physical Exam Physical Exam: General- No acute distress Head- atraumatic Eyes- PERRL, EOMI, ENT- oropharynx clear Neck- supple, no JVD Lungs- clear to auscultation Heart- +bradycardia Abdomen- normal bowel sounds, soft, nontender Extremities- no calf tenderness Neuro- alert, oriented x 3; PERRL, EOMI; no facial palsy; no dysarthria Skin- warm & dry Results & Data Results & Data ([facility]) Vital Signs (Past 12 Hours) Vital Signs Temp Pulse Pulse Pulse Resp BP Pulse Ox 03/28/22 11:40 36.8 C 66 20 175/90 H 96 03/28/22 08:05 49 L 03/28/22 07:39 36.5 C 52 L 18 170/62 H 96 03/28/22 03:49 36.8 C 55 L 18 135/77 95
[2022-03-28] MEDS: LATANOPROST 0.005% OP SOLN 2.5 ML BTL OPB SCH (21:05)
[2022-03-28] MEDS: MAGNESIUM OXIDE 400 MG TAB PO SCH (21:05)
[2022-03-28] MEDS: CYANOCOBALAMIN (B-12) 500 MCG TABLET PO SCH (21:07)
--- NOTE | 2022-03-28 23:00 | Electrocardiogram Report ---
Test Reason : Blood Pressure : / mmHG Vent. Rate : 049 BPM Atrial Rate : 049 BPM P-R Int : 192 ms QRS Dur : 092 ms QT Int : 450 ms P-R-T Axes : 068 003 043 degrees QTc Int : 406 ms Sinus bradycardia Otherwise normal ECG When compared with ECG of 26-MAR-2022 05:21, Sinus rhythm has replaced Atrial fibrillation Vent. rate has decreased BY 55 BPM QT has shortened Confirmed by Ignacio Cardoza ([id number]) on 03/28/2022 10:59:47 PM Referred By: REFERRED SELF Confirmed By:Ignacio Cardoza
--- NOTE | 2022-03-29 05:53 | Electrocardiogram Report ---
Test Reason : Blood Pressure : / mmHG Vent. Rate : 049 BPM Atrial Rate : 049 BPM P-R Int : 182 ms QRS Dur : 096 ms QT Int : 470 ms P-R-T Axes : 063 -02 030 degrees QTc Int : 424 ms Sinus bradycardia Otherwise normal ECG When compared with ECG of 27-MAR-2022 06:29, No significant change was found Confirmed by Ignacio Cardoza ([id number]) on 03/29/2022 5:52:42 AM Referred By: REFERRED SELF Confirmed By:Ignacio Cardoza
--- NOTE | 2022-03-29 07:01 | Electrocardiogram Report ---
Test Reason : Blood Pressure : / mmHG Vent. Rate : 053 BPM Atrial Rate : 053 BPM P-R Int : 178 ms QRS Dur : 092 ms QT Int : 476 ms P-R-T Axes : 063 003 043 degrees QTc Int : 446 ms Sinus bradycardia with Premature atrial complexes Otherwise normal ECG When compared with ECG of 27-MAR-2022 11:06, Premature atrial complexes are now Present Confirmed by Ignacio Cardoza ([id number]) on 03/29/2022 7:01:05 AM Referred By: REFERRED SELF Confirmed By:Ignacio Cardoza
[2022-03-29] MEDS: TIMOLOL MALEATE 0.5% OP SOLN 5 ML BTL OP SCH (08:48)
[2022-03-29] MEDS: CLOPIDOGREL BISULFATE 75 MG TAB PO SCH (08:49)
[2022-03-29] MEDS: PANTOprazole 40 MG TAB PO SCH (08:49)
[2022-03-29] MEDS: lisinopril 10 MG TAB PO SCH (08:49)
[2022-03-29] MEDS: DOFETILIDE 125 MCG CAPSULE PO SCH ×2 (08:49→20:45)
[2022-03-29] MEDS: APIXABAN 5 MG TABLET PO SCH ×2 (08:49→20:10)
[2022-03-29] MEDS: ROSUVASTATIN CALCIUM 5 MG TAB PO SCH (08:49)
[2022-03-29 10:13] LABS: BUN Creatinine Ratio 14.1 (10-20); Calcium 9.4 mg/dl (8.5-10.1); Creatinine Clr Calc Pharmacy 87.7 ml/min; Est GFR (African American) 93.8 ml/min; Est GFR (Non-African American) 80.9 ml/min; Potassium 4.2 mmol/L (3.5-5.1)
--- NOTE | 2022-03-29 11:30 | Cardiology Progress Note ---
Date of Service March 29, 2022 Assessment & Plan (1) Atrial fibrillation with rapid ventricular response: (2) CAD (coronary artery disease), [place] coronary artery: (3) Atypical chest pain: (4) HTN (hypertension): Plan: Patient admitted with recurrent afib while on sotalol 80 mg BID. Patient initiated sotalol approx 2 weeks ago. Dose limited due to bradycardia. Patient reported poor tolerance of sotalol over the last few weeks with symptoms of nausea, fatigue and sinus bradycardia being reported. Sotalol held on admission. During 24 hour washout, she spontaneously converted to NSR. Tikosyn 500 mg BID initiated. Stable EKG findings after each dose with a cceptable QT/QTc measurements. No recurrent afib noted on telemetry. Repeat EKG this morning pre Tikosyn dose with stable measurements. Cardiac enzymes have been unremarkable. Atypical chest pain not ACS. Lisinopril dose increased yesterday for hypertension. BP trending down. Continue lisinopril 10 mg daily. She will continue chronic anticoagulation with Eliquis 5 mg BID as prescribed. Given recent stent, continue Plavix, lisinopril, statin. Metoprolol tartrate 12.5 mg BID prescribed/trialed but due to bradycardia, stopped. Borderline tachybrady. 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 Case discussed with Dr. Chamberlain. Will follow. Admission and Anticipated Discharge Date Admission Date: March 27, 2022 Supervising Physician Co-Signing Physician Notes Patient seen and examined, chart, medications, telemetry reviewed. Overall clinical course progressing as hoped. No further QT prolongation or arrhythmias. Will maintain telemetry till tomorrow morning then discharge for outpatient follow-up. All questions were answered. Subjective Patient feeling well this morning. Notes intermittent left sided chest 'ache' but this is chronic for years. No exertional chest pain. No SOB. No dizziness. Review of Systems Review of Systems: All systems reviewed & are unremarkable except as noted in HPI & below Physical Exam Constitutional: WD/WN, vitals as above Respiratory: normal respiratory effort, lungs clear to auscultation Cardiovascular: Rate/Rhythm: regular rate and regular rhythm Heart Sounds: normal S1 and normal S2; no murmur Vessels: no JVD Extremities: no edema Gastrointestinal (Abdomen): normal bowel sounds, soft, nontender, no hepatosplenomegaly Skin: no rashes, warm and dry Neurologic: PERRL, EOMI, accommodation nl, no face palsy, no dysarthria Psychiatric: A+Ox3, euthymic affect Results & Data ([facility]) Vital Signs (Past 12 Hours) Vital Signs Temp Pulse Pulse Resp BP Pulse Ox 03/29/22 11:02 36.7 C 57 L 20 154/81 H 97 03/29/22 07:31 36.5 C 59 L 20 130/70 94 03/29/22 07:24 53 L 03/29/22 03:08 36.7 C 50 L 18 137/71 95 Laboratory Results 03/29/22 Range/Units 09:13 Sodium 139 (136-145) mmol/L Potassium 4.2 (3.5-5.1) mmol/L Chloride 103 (98-107) mmol/L Carbon Dioxide 28 (21-32) mmol/L Anion Gap 8 (3-11) BUN 11 (6-23) mg/dl Creatinine 0.78 (0.6-1.2) mg/dl Est Cr Clr Drug Dosing 87.7 ml/min Est GFR ( Amer) 93.8 ml/min Est GFR (Non-Af Amer) 80.9 ml/min BUN/Creatinine Ratio 14.1 (10-20) Glucose 206 H (70-99(Fasting)) mg/dl Calcium 9.4 (8.5-10.1) mg/dl Diagnostic Findings Telemetry reviewed: Sinus bradycardia, NSR ranging 50-60's. No recurrent atrial fib or flutter. No ventricular arrhythmias. Morning EKG reviewed (pre Tikosyn dose) Sinus bradycardia, stable QT/QTc measurements at - 490/459 ms Medications Administered Current Inpatient Medications Acetaminophen (Acetaminophen 325 Mg Tab) 650 mg PO Q4H PRN PRN Reason: Pain or Fever Stop: 04/25/22 01:13 Last Admin: 03/27/22 12:34 Dose: 650 mg Documented by: Apixaban (Apixaban 5 Mg Tablet) 5 mg PO BID [facility] Stop: 04/25/22 08:59 Last Admin: 03/29/22 08:49 Dose: 5 mg Documented by: Clopidogrel Bisulfate (Clopidogrel Bisulfate 75 Mg Tab) 75 mg PO QAM [facility] Stop: 04/25/22 08:59 Last Admin: 03/29/22 08:49 Dose: 75 mg Documented by: Cyanocobalamin (Cyanocobalamin (B-12) 500 Mcg Tablet) 1,000 mcg PO QPM [facility] Stop: 04/25/22 20:59 Last Admin: 03/28/22 21:07 Dose: 1,000 mcg Documented by: Dofetilide (Dofetilide 125 Mcg Capsule) 500 mcg PO BID [facility] Stop: 04/26/22 08:59 Last Admin: 03/29/22 08:49 Dose: 500 mcg Documented by: Promethazine HCl 12.5 mg/ (Sodium Chloride) 50.5 mls @ 202 mls/hr IV Q6H PRN PRN Reason: Nausea And Vomiting Stop: 04/25/22 01:13 Latanoprost (Latanoprost 0.005% Op Soln 2.5 Ml Btl) 1 drops OPB HS [facility] Stop: 04/25/22 20:59 Last Admin: 03/28/22 21:05 Dose: 1 drops Documented by: Lisinopril (Lisinopril 10 Mg Tab) 10 mg PO QAM [facility] Stop: 04/28/22 08:59 Last Admin: 03/29/22 08:49 Dose: 10 mg Documented by: Lorazepam (Lorazepam 2 Mg/1 Ml Vial) 0.5 mg IV Q4H PRN PRN Reason: Anxiety Stop: 04/25/22 01:13 Magnesium Oxide (Magnesium Oxide 400 Mg Tab) 400 mg PO QPM [facility] Stop: 04/25/22 20:59 Last Admin: 03/28/22 21:05 Dose: 400 mg Documented by: Metoprolol Tartrate (Metoprolol Tartrate 25 Mg Tab) 12.5 mg PO BID [facility] Stop: 04/25/22 09:44 Last Admin: 03/27/22 08:21 Dose: Not Given Documented by: Morphine Sulfate (Morphine Sulfate 2 Mg/Ml Carp) 2 mg IV Q3H PRN PRN Reason: Pain Stop: 04/09/22 01:13 Nitroglycerin (Nitroglycerin Sl 0.4 Mg/Tab Tab) 0.4 mg SL UD PRN PRN Reason: Chest Pain Stop: 04/25/22 01:13 Last Admin: 03/26/22 08:20 Dose: 0.4 mg Documented by: Pantoprazole Sodium (Pantoprazole 40 Mg Tab) 40 mg PO DAILY [facility] Stop: 04/25/22 08:59 Last Admin: 03/29/22 08:49 Dose: 40 mg Documented by: Rosuvastatin Calcium (Rosuvastatin Calcium 5 Mg Tab) 5 mg PO DAILY [facility] Stop: 04/25/22 08:59 Last Admin: 03/29/22 08:49 Dose: 5 mg Documented by: Timolol Maleate (Timolol Maleate 0.5% Op Soln 5 Ml Btl) 1 drops OP QAM [facility] Stop: 04/25/22 08:59 Last Admin: 03/29/22 08:48 Dose: 1 drops Documented by: Tramadol HCl (Tramadol Hcl 50 Mg Tablet) 25 - 50 mg PO Q4H PRN PRN Reason: Pain Stop: 04/25/22 01:13 (1) HTN (hypertension) Hypertension type: unspecified Qualified Code(s): I10 - Essential (primary) hypertension
--- NOTE | 2022-03-29 14:00 | Hospitalist Progress Note ---
Date of Service March 29, 2022 Assessment & Plan (1) Atrial fibrillation with rapid ventricular response: Plan: Recurrent A. fib Hx PAF/Afl status post ablation Present on admission with afib RVR with rate 133 received Metoprolol 2.5mgx1 and Digoxinx3 on admission Cardiology on board-appreciate input and recommendation Sotalol discontinued Tele monitor showed NSR Continue Tikosyn 500mg BID Metoprolol 12.5 mg on hold due to bradycardia Continue Eliquis Continue monitor EKG Has been in sinus rhythm since Tikosyn has been administered Denies any symptoms and remains hemodynamically stable Likely home tomorrow if remains stable CAD status post stent last month Continue Plavix, eliquis, statin, metoprolol and Lisinopril Asymptomatic Hypertension BP elevated Lisinopril increased to 10mg daily Continue monitor BP -blood pressure seems to be stable at 154/81 this afternoon YFN Non compliance with CPAP DVT prophylaxis. Dior Full code Admission and Anticipated Discharge Date Admission Date: March 27, 2022 Subjective 03/29/2022 The patient was seen and examined in telemetry unit She is reverted to sinus rhythm and denies any symptoms Denies any palpitation, chest pain, shortness of breath but he still feels a little dizzy with ambulation She will need to stay tonight before discharge tomorrow if is stable Review of Systems Review of Systems: All systems reviewed and are unremarkable except as noted below Musculoskeletal: No acute arthritis in any joint Physical Exam Physical Exam: Sitting on a chair without any acute distress Constitutional: well developed, well nourished and + obese; not ill appearing Eyes: PERRL, conjunctivae normal, anicteric sclerae ENMT: external ear and nose normal, oropharynx normal Neck: trachea midline, no thyromegaly Respiratory: no respiratory distress Auscultation: lungs clear to auscultation bilaterally Cardiovascular: Rate/Rhythm: regular rate and regular rhythm; not tachycardic Heart Sounds: normal S1 and normal S2; no murmur Extremities: + edema (Trace edema bilaterally) Gastrointestinal (Abdomen): Inspection/Auscultation: normal bowel sounds; abdomen not distended Percussion/Palpation: abdomen soft; abdomen nontender Musculoskeletal: No acute arthritis in any joint Neurologic: Alert, awake and oriented x3. No focal sensory or no motor deficit appreciated Psychiatric: A+Ox3, euthymic affect Lymphatic: no cervical or axillary lymphadenopathy Results & Data Results & Data ([facility]) Vital Signs (Past 12 Hours) Vital Signs Temp Pulse Pulse Resp BP Pulse Ox 03/29/22 11:02 36.7 C 57 L 20 154/81 H 97 03/29/22 07:31 36.5 C 59 L 20 130/70 94 03/29/22 07:24 53 L 03/29/22 03:08 36.7 C 50 L 18 137/71 95 Laboratory Results BMP 03/29/22 09:13 Sodium 139 Potassium 4.2 Chloride 103 Carbon Dioxide 28 BUN 11 Creatinine 0.78 Glucose 206 H Calcium 9.4 Medications Administered Current Inpatient Medications Acetaminophen (Acetaminophen 325 Mg Tab) 650 mg PO Q4H PRN PRN Reason: Pain or Fever Stop: 04/25/22 01:13 Last Admin: 03/27/22 12:34 Dose: 650 mg Documented by: Apixaban (Apixaban 5 Mg Tablet) 5 mg PO BID [facility] Stop: 04/25/22 08:59 Last Admin: 03/29/22 08:49 Dose: 5 mg Documented by: Clopidogrel Bisulfate (Clopidogrel Bisulfate 75 Mg Tab) 75 mg PO QAM [facility] Stop: 04/25/22 08:59 Last Admin: 03/29/22 08:49 Dose: 75 mg Documented by: Cyanocobalamin (Cyanocobalamin (B-12) 500 Mcg Tablet) 1,000 mcg PO QPM [facility] Stop: 04/25/22 20:59 Last Admin: 03/28/22 21:07 Dose: 1,000 mcg Documented by: Dofetilide (Dofetilide 125 Mcg Capsule) 500 mcg PO BID [facility] Stop: 04/26/22 08:59 Last Admin: 03/29/22 08:49 Dose: 500 mcg Documented by: Promethazine HCl 12.5 mg/ (Sodium Chloride) 50.5 mls @ 202 mls/hr IV Q6H PRN PRN Reason: Nausea And Vomiting Stop: 04/25/22 01:13 Latanoprost (Latanoprost 0.005% Op Soln 2.5 Ml Btl) 1 drops OPB HS [facility] Stop: 04/25/22 20:59 Last Admin: 03/28/22 21:05 Dose: 1 drops Documented by: Lisinopril (Lisinopril 10 Mg Tab) 10 mg PO QAM [facility] Stop: 04/28/22 08:59 Last Admin: 03/29/22 08:49 Dose: 10 mg Documented by: Lorazepam (Lorazepam 2 Mg/1 Ml Vial) 0.5 mg IV Q4H PRN PRN Reason: Anxiety Stop: 04/25/22 01:13 Magnesium Oxide (Magnesium Oxide 400 Mg Tab) 400 mg PO QPM [facility] Stop: 04/25/22 20:59 Last Admin: 03/28/22 21:05 Dose: 400 mg Documented by: Metoprolol Tartrate (Metoprolol Tartrate 25 Mg Tab) 12.5 mg PO BID [facility] Stop: 04/25/22 09:44 Last Admin: 03/27/22 08:21 Dose: Not Given Documented by: Morphine Sulfate (Morphine Sulfate 2 Mg/Ml Carp) 2 mg IV Q3H PRN PRN Reason: Pain Stop: 04/09/22 01:13 Nitroglycerin (Nitroglycerin Sl 0.4 Mg/Tab Tab) 0.4 mg SL UD PRN PRN Reason: Chest Pain Stop: 04/25/22 01:13 Last Admin: 03/26/22 08:20 Dose: 0.4 mg Documented by: Pantoprazole Sodium (Pantoprazole 40 Mg Tab) 40 mg PO DAILY [facility] Stop: 04/25/22 08:59 Last Admin: 03/29/22 08:49 Dose: 40 mg Documented by: Rosuvastatin Calcium (Rosuvastatin Calcium 5 Mg Tab) 5 mg PO DAILY [facility] Stop: 04/25/22 08:59 Last Admin: 03/29/22 08:49 Dose: 5 mg Documented by: Timolol Maleate (Timolol Maleate 0.5% Op Soln 5 Ml Btl) 1 drops OP QAM [facility] Stop: 04/25/22 08:59 Last Admin: 03/29/22 08:48 Dose: 1 drops Documented by: Tramadol HCl (Tramadol Hcl 50 Mg Tablet) 25 - 50 mg PO Q4H PRN PRN Reason: Pain Stop: 04/25/22 01:13
[2022-03-29] MEDS: CYANOCOBALAMIN (B-12) 500 MCG TABLET PO SCH (20:09)
[2022-03-29] MEDS: MAGNESIUM OXIDE 400 MG TAB PO SCH (20:09)
[2022-03-29] MEDS: LATANOPROST 0.005% OP SOLN 2.5 ML BTL OPB SCH (20:10)
--- NOTE | 2022-03-29 22:56 | Electrocardiogram Report ---
Test Reason : Blood Pressure : / mmHG Vent. Rate : 056 BPM Atrial Rate : 056 BPM P-R Int : 172 ms QRS Dur : 090 ms QT Int : 476 ms P-R-T Axes : 055 008 049 degrees QTc Int : 459 ms Sinus bradycardia Otherwise normal ECG When compared with ECG of 27-MAR-2022 21:54, Premature atrial complexes are no longer Present Confirmed by Ignacio Cardoza ([id number]) on 03/29/2022 10:55:57 PM Referred By: REFERRED SELF Confirmed By:Ignacio Cardoza
--- NOTE | 2022-03-29 23:37 | Electrocardiogram Report ---
Test Reason : Blood Pressure : / mmHG Vent. Rate : 052 BPM Atrial Rate : 052 BPM P-R Int : 186 ms QRS Dur : 096 ms QT Int : 468 ms P-R-T Axes : 064 -07 036 degrees QTc Int : 435 ms Sinus bradycardia with sinus arrhythmia Otherwise normal ECG When compared with ECG of 28-MAR-2022 06:27, No significant change was found Confirmed by Ignacio Cardoza ([id number]) on 03/29/2022 11:37:18 PM Referred By: REFERRED SELF Confirmed By:Ignacio Cardoza
[2022-03-30 07:09] LABS: Basophils # (auto) 0.01 K/uL (0-0.2); Basophils % (auto) 0.2 %; Eosinophils # (auto) 0.11 K/uL (0-0.5); Hematocrit (blood only) 37.8 % (37-47); Hemoglobin 12.9 g/dL (12.0-16.0); Immature Granulocytes # (auto) 0.02 K/uL (0.00-0.02); Immature Granulocytes % (auto) 0.4 %; Lymphocytes # (auto) 1.64 K/uL (1.2-3.4); Lymphocytes % (auto) 29.7 %; Mean Corpuscular Hemoglobin 31.5 pg (25-34); Mean Corpuscular Hgb Conc 34.1 g/dL (32-36); Mean Corpuscular Volume 92.2 fL (80-100); Mean Platelet Volume 10.1 fL (7.4-10.4); Monocytes # (auto) 0.43 K/uL (0.11-0.59); Monocytes % (auto) 7.8 %; Neutrophils # (auto) 3.32 K/uL (1.4-6.5); Neutrophils % (auto) 59.9 %; Platelet Count 171 K/uL (130-400); RDW Coefficient of Variation 12.3 % (11.5-14.5); RDW Standard Deviation 41.7 fL (36.4-46.3); White Blood Count 5.53 K/uL (4.8-10.8)
[2022-03-30 07:41] LABS: BUN Creatinine Ratio 15.5 (10-20); Creatinine Clr Calc Pharmacy 96.3 ml/min; Est GFR (African American) 105.1 ml/min; Est GFR (Non-African American) 90.7 ml/min; Magnesium 2.1 mg/dl (1.7-2.4); Potassium 3.9 mmol/L (3.5-5.1)
[2022-03-30] MEDS: CLOPIDOGREL BISULFATE 75 MG TAB PO SCH (07:52)
[2022-03-30] MEDS: PANTOprazole 40 MG TAB PO SCH (07:52)
[2022-03-30] MEDS: DOFETILIDE 125 MCG CAPSULE PO SCH (07:52)
[2022-03-30] MEDS: ROSUVASTATIN CALCIUM 5 MG TAB PO SCH (07:52)
[2022-03-30] MEDS: TIMOLOL MALEATE 0.5% OP SOLN 5 ML BTL OP SCH (07:52)
[2022-03-30] MEDS: APIXABAN 5 MG TABLET PO SCH (07:52)
[2022-03-30] MEDS: lisinopril 10 MG TAB PO SCH (07:52)
--- NOTE | 2022-03-30 09:22 | Hospitalist Progress Note ---
Date of Service March 30, 2022 Assessment & Plan (1) Atrial fibrillation with rapid ventricular response: Plan: Recurrent A. fib Hx PAF/Afl status post ablation Present on admission with afib RVR with rate 133 received Metoprolol 2.5mgx1 and Digoxinx3 on admission Cardiology on board-appreciate input and recommendation Sotalol discontinued Tele monitor showed NSR Continue Tikosyn 500mg BID Metoprolol 12.5 mg on hold due to bradycardia Continue Eliquis Continue monitor EKG Has been in sinus rhythm since Tikosyn has been administered Denies any symptoms and remains hemodynamically stable Remains in sinus rhythm without any symptoms Will be discharged home this morning-continue current medications on discharge CAD status post stent last month Continue Plavix, eliquis, statin, metoprolol and Lisinopril Asymptomatic Hypertension BP elevated Lisinopril increased to 10mg daily Continue monitor BP -blood pressure seems to be stable at 154/81 this afternoon Blood pressure is controlled YFN Non compliance with CPAP DVT prophylaxis. Eliquis Full code Admission and Anticipated Discharge Date Admission Date: March 27, 2022 Subjective 03/29/2022 The patient was seen and examined in telemetry unit She is reverted to sinus rhythm and denies any symptoms Denies any palpitation, chest pain, shortness of breath but he still feels a little dizzy with ambulation She will need to stay tonight before discharge tomorrow if is stable 03/30/2022 The patient was seen and examined in telemetry unit She does not have any complaints today and she remains in sinus rhythm Denies any chest pain, palpitation, shortness of breath, nausea and or vomiting She will be discharged home today Review of Systems Review of Systems: All systems reviewed and are unremarkable except as noted below Musculoskeletal: No acute arthritis in any joint Physical Exam Physical Exam: Sitting on a chair without any acute distress Constitutional: well developed, well nourished and + obese; not ill appearing Eyes: PERRL, conjunctivae normal, anicteric sclerae ENMT: external ear and nose normal, oropharynx normal Neck: trachea midline, no thyromegaly Respiratory: no respiratory distress Auscultation: lungs clear to auscultation bilaterally Cardiovascular: Rate/Rhythm: regular rate and regular rhythm; not tachycardic Heart Sounds: normal S1 and normal S2; no murmur Extremities: + edema (Trace edema bilaterally) Gastrointestinal (Abdomen): Inspection/Auscultation: normal bowel sounds; abdomen not distended Percussion/Palpation: abdomen soft; abdomen nontender Musculoskeletal: No acute arthritis in any joint Neurologic: patellar DTR's 2+ bilat, sensation intact Psychiatric: A+Ox3, euthymic affect Lymphatic: no cervical or axillary lymphadenopathy Results & Data Results & Data ([facility]) Vital Signs (Past 12 Hours) Vital Signs Temp Pulse Pulse Resp BP Pulse Ox 03/30/22 08:00 50 L 03/30/22 07:29 36.7 C 52 L 18 117/70 95 03/30/22 02:49 36.7 C 58 L 18 123/70 95 03/29/22 23:12 49 L 03/29/22 23:09 36.6 C 53 L 18 144/72 H 96 Laboratory Results Short CBC 03/30/22 Range/Units 06:36 WBC 5.53 (4.8-10.8) K/uL Hgb 12.9 (12.0-16.0) g/dL Hct 37.8 (37-47) % Plt Count 171 (130-400) K/uL [facility] 03/29/22 03/30/22 09:13 06:36 Sodium 139 139 Potassium 4.2 3.9 Chloride 103 106 Carbon Dioxide 28 27 BUN 11 11 Creatinine 0.78 0.71 Glucose 206 H 107 H Calcium 9.4 9.0 Medications Administered Current Inpatient Medications Acetaminophen (Acetaminophen 325 Mg Tab) 650 mg PO Q4H PRN PRN Reason: Pain or Fever Stop: 04/25/22 01:13 Last Admin: 03/27/22 12:34 Dose: 650 mg Documented by: Apixaban (Apixaban 5 Mg Tablet) 5 mg PO BID [facility] Stop: 04/25/22 08:59 Last Admin: 03/30/22 07:52 Dose: 5 mg Documented by: Clopidogrel Bisulfate (Clopidogrel Bisulfate 75 Mg Tab) 75 mg PO QAM [facility] Stop: 04/25/22 08:59 Last Admin: 03/30/22 07:52 Dose: 75 mg Documented by: Cyanocobalamin (Cyanocobalamin (B-12) 500 Mcg Tablet) 1,000 mcg PO QPM [facility] Stop: 04/25/22 20:59 Last Admin: 03/29/22 20:09 Dose: 1,000 mcg Documented by: Dofetilide (Dofetilide 125 Mcg Capsule) 500 mcg PO BID [facility] Stop: 04/26/22 08:59 Last Admin: 03/30/22 07:52 Dose: 500 mcg Documented by: Promethazine HCl 12.5 mg/ (Sodium Chloride) 50.5 mls @ 202 mls/hr IV Q6H PRN PRN Reason: Nausea And Vomiting Stop: 04/25/22 01:13 Latanoprost (Latanoprost 0.005% Op Soln 2.5 Ml Btl) 1 drops OPB HS [facility] Stop: 04/25/22 20:59 Last Admin: 03/29/22 20:10 Dose: 1 drops Documented by: Lisinopril (Lisinopril 10 Mg Tab) 10 mg PO QAM [facility] Stop: 04/28/22 08:59 Last Admin: 03/30/22 07:52 Dose: 10 mg Documented by: Lorazepam (Lorazepam 2 Mg/1 Ml Vial) 0.5 mg IV Q4H PRN PRN Reason: Anxiety Stop: 04/25/22 01:13 Magnesium Oxide (Magnesium Oxide 400 Mg Tab) 400 mg PO QPM [facility] Stop: 04/25/22 20:59 Last Admin: 03/29/22 20:09 Dose: 400 mg Documented by: Metoprolol Tartrate (Metoprolol Tartrate 25 Mg Tab) 12.5 mg PO BID [facility] Stop: 04/25/22 09:44 Last Admin: 03/27/22 08:21 Dose: Not Given Documented by: Morphine Sulfate (Morphine Sulfate 2 Mg/Ml Carp) 2 mg IV Q3H PRN PRN Reason: Pain Stop: 04/09/22 01:13 Nitroglycerin (Nitroglycerin Sl 0.4 Mg/Tab Tab) 0.4 mg SL UD PRN PRN Reason: Chest Pain Stop: 04/25/22 01:13 Last Admin: 03/26/22 08:20 Dose: 0.4 mg Documented by: Pantoprazole Sodium (Pantoprazole 40 Mg Tab) 40 mg PO DAILY [facility] Stop: 04/25/22 08:59 Last Admin: 03/30/22 07:52 Dose: 40 mg Documented by: Rosuvastatin Calcium (Rosuvastatin Calcium 5 Mg Tab) 5 mg PO DAILY [facility] Stop: 04/25/22 08:59 Last Admin: 03/30/22 07:52 Dose: 5 mg Documented by: Timolol Maleate (Timolol Maleate 0.5% Op Soln 5 Ml Btl) 1 drops OP QAM [facility] Stop: 04/25/22 08:59 Last Admin: 03/30/22 07:52 Dose: 1 drops Documented by: Tramadol HCl (Tramadol Hcl 50 Mg Tablet) 25 - 50 mg PO Q4H PRN PRN Reason: Pain Stop: 04/25/22 01:13
--- NOTE | 2022-03-30 09:33 | Cardiology Progress Note ---
Date of Service March 30, 2022 Assessment & Plan (1) Atrial fibrillation with rapid ventricular response: (2) CAD (coronary artery disease), three [place] coronary artery: (3) Atypical chest pain: (4) HTN (hypertension): Plan: Patient admitted with recurrent afib while on sotalol 80 mg BID. Patient initiated sotalol approx 2 weeks ago. Dose limited due to bradycardia. Patient reported poor tolerance of sotalol over the last few weeks with symptoms of nausea, fatigue and sinus bradycardia being reported. Sotalol held on admission. During 24 hour washout, she spontaneously converted to NSR. Tikosyn 500 mg BID initiated. Stable EKG findings after each dose with a cceptable QT/QTc measurements. No recurrent afib noted on telemetry. Repeat EKG this morning pre Tikosyn dose with stable measurements. Cardiac enzymes have been unremarkable. Atypical chest pain not ACS. Lisinopril dose increased yesterday for hypertension. BP trending down. Continue lisinopril 10 mg daily. She will continue chronic anticoagulation with Eliquis 5 mg BID as prescribed. Given recent stent, continue Plavix, lisinopril, statin. Metoprolol tartrate 12.5 mg BID prescribed/trialed but due to bradycardia, stopped. Borderline tachybrady. 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 Overall patient doing well no QT prolongation with Tikosyn no arrhythmias since admission. Blood pressure improved. Okay for discharge to home as above. Cardiology appointment 2 to 3-week Admission and Anticipated Discharge Date Admission Date: March 27, 2022 Subjective Patient seen and examined, chart, medications, telemetry reviewed. No arrhythmias overnight tolerating current medical therapies well blood pressure better controlled. Physical Exam Constitutional: WD/WN, vitals as above Respiratory: normal respiratory effort, lungs clear to auscultation Cardiovascular: Rate/Rhythm: regular rate and regular rhythm Heart Sounds: normal S1 and normal S2; no murmur Vessels: no JVD Extremities: no edema Gastrointestinal (Abdomen): normal bowel sounds, soft, nontender, no hepatosplenomegaly Skin: no rashes, warm and dry Neurologic: PERRL, EOMI, accommodation nl, no face palsy, no dysarthria Psychiatric: A+Ox3, euthymic affect Results & Data ([facility]) Vital Signs (Past 12 Hours) Vital Signs Temp Pulse Pulse Resp BP Pulse Ox 03/30/22 08:00 50 L 03/30/22 07:29 36.7 C 52 L 18 117/70 95 03/30/22 02:49 36.7 C 58 L 18 123/70 95 03/29/22 23:12 49 L 03/29/22 23:09 36.6 C 53 L 18 144/72 H 96 (1) HTN (hypertension) Hypertension type: unspecified Qualified Code(s): I10 - Essential (primary) hypertension
--- NOTE | 2022-03-30 15:51 | Electrocardiogram Report ---
Test Reason : Blood Pressure : / mmHG Vent. Rate : 056 BPM Atrial Rate : 056 BPM P-R Int : 186 ms QRS Dur : 094 ms QT Int : 480 ms P-R-T Axes : 060 -10 033 degrees QTc Int : 463 ms Sinus bradycardia Otherwise normal ECG When compared with ECG of 28-MAR-2022 09:29, No significant change was found Confirmed by Ignacio Cardoza ([id number]) on 03/30/2022 3:51:13 PM Referred By: REFERRED SELF Confirmed By:Ignacio Cardoza
--- NOTE | 2022-03-30 16:58 | Electrocardiogram Report ---
Test Reason : Blood Pressure : / mmHG Vent. Rate : 053 BPM Atrial Rate : 053 BPM P-R Int : 186 ms QRS Dur : 092 ms QT Int : 490 ms P-R-T Axes : 070 -14 045 degrees QTc Int : 459 ms Sinus bradycardia with sinus arrhythmia Otherwise normal ECG When compared with ECG of 28-MAR-2022 22:03, No significant change was found Confirmed by Ignacio Cardoza ([id number]) on 03/30/2022 4:57:44 PM Referred By: REFERRED SELF Confirmed By:Ignacio Cardoza
--- NOTE | 2022-03-30 17:28 | Discharge Summary ---
Date of Service March 30, 2022 Admission HPI Per Admitting Provider History obtained from patient, family, and records. Medical history significant for CAD status post stent (January 2022), paroxysmal A. fib/atrial flutter status post ablation on Eliquis, hypertension, hyperlipidemia, NAFLD, mood disorder, YFN CPAP noncompliance, glaucoma, past tobacco abuse. Last confinement 2 weeks ago for recurrent A. fib. Patient converted to NSR during confinement. Patient Metoprolol switched to Sotalol. Nausea and fatigue symptoms with Sotalol as per patient. Heart rate of 40 to 50s at home. Patient hesitant to reduce sotalol dose on outpatient cardiology follow-up visit 2 days ago. EPS follow-up in 6 weeks. Patient also instructed to comply with PPI prescription for GERD. A few hours ago at home, patient experienced substernal discomfort somewhat burning similar to her heart attack episode in the past. Palpitations noted similar to A. fib sensation as per patient. Shortness of breath. Patient compliant with medications. No unusual stress. Chest discomfort different from GERD episode as per patient. Patient brought by partner to the ER for evaluation. Patient noted to be in rapid A. fib, highest heart rate of 120s. IV Lopressor given at the ER. Patient currently comfortable. 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 Admission Exam Per Admitting Provider Physical Exam: GENERAL: Comfortable, pleasant, morbidly obese, no respiratory distress SKIN: Normal color, warm HEENT: Bespectacled, [place] palpebral conjunctivae, no ptosis, moist buccal mucosa NECK : Supple, short neck, no tenderness CHEST : CTA, no tenderness HEART : Irregular, tachycardic, no obvious murmurs ABDOMEN: Some distention, nontender EXTREMITIES : Minimal LE swelling, no LE tenderness, no other conspicuous deformities noted NEUROLOGIC : Coherent, no facial asymmetry, no other gross focality Principal Diagnosis Atrial fibrillation with RVR, atypical chest pain, hypertension Discharge Exam Sitting on a chair without any acute distress Constitutional well developed, well nourished and + obese; not ill appearing Eyes PERRL, conjunctivae normal, anicteric sclerae ENMT external ear and nose normal, oropharynx normal Neck trachea midline, no thyromegaly Respiratory no respiratory distress Auscultation: lungs clear to auscultation bilaterally Cardiovascular Rate/Rhythm: regular rate and regular rhythm; not tachycardic Heart Sounds: normal S1 and normal S2; no murmur Extremities: + edema (Trace edema bilaterally) Gastrointestinal (Abdomen) Inspection/Auscultation: normal bowel sounds; abdomen not distended Percussion/Palpation: abdomen soft; abdomen nontender Neurologic patellar DTR's 2+ bilat, sensation intact Psychiatric A+Ox3, euthymic affect Lymphatic no cervical or axillary lymphadenopathy Discharge Data Allergies Allergy/AdvReac Type Severity Reaction Status Date / Time Sulfa (Sulfonamide Allergy Unknown CAN'T Verified 03/26/22 00:01 Antibiotics) REMEMBER doxycycline AdvReac Intermediate CAUSED Verified 03/26/22 00:01 A-FIB Consultations 03/25/22 22:58 ED Decision to Admit Stat 03/26/22 01:14 Consult Cardiology Routine Hospital Course (1) Atrial fibrillation with rapid ventricular response: Recurrent A. fib Hx PAF/Afl status post ablation Present on admission with afib RVR with rate 133 received Metoprolol 2.5mgx1 and Digoxinx3 on admission Cardiology on board-appreciate input and recommendation Sotalol discontinued Tele monitor showed NSR Continue Tikosyn 500mg BID Metoprolol 12.5 mg on hold due to bradycardia Continue Eliquis Continue monitor EKG Has been in sinus rhythm since Tikosyn has been administered Denies any symptoms and remains hemodynamically stable Remains in sinus rhythm without any symptoms Will be discharged home this morning-continue current medications on discharge CAD status post stent last month Continue Plavix, eliquis, statin, metoprolol and Lisinopril Asymptomatic Hypertension BP elevated Lisinopril increased to 10mg daily Continue monitor BP -blood pressure seems to be stable at 154/81 this afternoon Blood pressure is controlled YFN Non compliance with CPAP DVT prophylaxis. Eliquis Full code Total Time Total Time Spent Total Time Spent (In Minutes): 35 minutes Discharge Plan Discharge Items Patient Disposition: Home - Self-Care Reason For Visit: CP, AF Discharge Diagnosis: Atrial fibrillation with RVR, atypical chest pain, hypertension Condition on Discharge: Good Activity: Resume your previous activity Non-emergency contact: Primary Care Provider Call non-emergency contact if: you have any medication questions and your symptoms worsen Follow-up/Referrals: Aurea Chang PA-C [Physician Animated Cartoons Painter] - (Date & Time 04/11/2022 9:00 AM Provider Aurea Chang PA-C Department Cardiology, [facility] ) Ilana Harris MD [Primary Care Provider] - (Date & Time 04/04/2022 2:00 PM Provider Ilana Harris MD Department [facility] ) Diet: Heart Healthy Addtl Attending Provider Instructions: Please take precautions to avoid fall Take your medications as advised Please give appointment with your healthcare providers Pending Studies at Discharge: No Stand-Alone Forms: My [facility] Adreal, Smoking Cessation Medications and DC Order Prescriptions: New lisinopril 10 mg Tablet 10 mg PO QAM 30 Days Qty: 30 RF: 0 dofetilide [Tikosyn] 500 mcg capsule 500 mcg PO BID Qty: 60 RF: 0 Continued rosuvastatin 5 mg tablet 5 mg PO DAILY RF: 0 latanoprost 0.005 % drops 1 drp OPB HS RF: 0 timolol maleate 0.5 % drops 1 drp OPB QAM RF: 0 cholecalciferol (vitamin D3) [Vitamin D3] 25 mcg (1,000 unit) Capsule 25 mcg PO QPM RF: 0 cyanocobalamin (vitamin B-12) [Vitamin B-12] 1,000 mcg Tablet 1,000 mcg PO QPM RF: 0 magnesium 250 mg Tablet 250 mg PO QPM RF: 0 guar gum 1 gram Tablet 0 g PO DAILY RF: 0 pantoprazole 40 mg tablet,delayed release (DR/EC) 40 mg PO DAILY RF: 0 Probiotic 3 billion cell Capsule 0 mmu cells PO DAILY RF: 0 ascorbic acid (vitamin C) [Vitamin C] 1,000 mg Tablet 1 g PO QPM RF: 0 Eliquis 5 mg tablet 5 mg PO BID Qty: 60 RF: 0 clopidogrel 75 mg tablet 75 mg PO QAM RF: 0 Discontinued lisinopril 2.5 mg tablet 2.5 mg PO QAM RF: 0 sotalol 80 mg Tablet 80 mg PO BID 30 Days Qty: 60 RF: 0 Discharge Orders: Discharge Order (Routine); Ordered 03/30/22 Ordered By: Rambo Denis Admission Data Admit Date/Time: 03/27/22 07:00 Attending Provider: Rambo Denis Admit Provider: Bereket Constantino Primary Care Provider: Ilana Harris Other Providers: Bereket Constantino ; Misael Chappell ; José Manuel Macario ; Jonatan Chamberlain ; Uche Greer ; Lamberto Jones ; Daren Brown ; Aurea Chang ; Kandy An ; Vesna Reyes ; Micheal Brown Other Interventions: Discharge Summary Assessment (RN) Last Done: 03/30/22 10:27
--- NOTE | 2022-03-30 18:05 | Electrocardiogram Report ---
Test Reason : Blood Pressure : / mmHG Vent. Rate : 044 BPM Atrial Rate : 044 BPM P-R Int : 188 ms QRS Dur : 096 ms QT Int : 508 ms P-R-T Axes : 062 -09 031 degrees QTc Int : 434 ms Marked sinus bradycardia with marked sinus arrhythmia Abnormal ECG When compared with ECG of 29-MAR-2022 05:17, No significant change was found Confirmed by Ignacio Cardoza ([id number]) on 03/30/2022 6:04:38 PM Referred By: REFERRED SELF Confirmed By:Ignacio Cardoza
--- NOTE | 2022-03-30 21:54 | Electrocardiogram Report ---
Test Reason : Blood Pressure : / mmHG Vent. Rate : 048 BPM Atrial Rate : 048 BPM P-R Int : 184 ms QRS Dur : 096 ms QT Int : 484 ms P-R-T Axes : 056 -12 033 degrees QTc Int : 432 ms Sinus bradycardia with marked sinus arrhythmia Otherwise normal ECG When compared with ECG of 29-MAR-2022 10:23, No significant change was found Confirmed by Ignacio Cardoza ([id number]) on 03/30/2022 9:54:14 PM Referred By: REFERRED SELF Confirmed By:Ignacio Cardoza
== END 2022-03-30 12:09 | disposition home or self-care (01) | DRG 310 ==
LOC: 2S 21:39 → ED 21:39 → 2S 03-26 00:38 → SUATTDRO 03-27 07:00

== ENCOUNTER 2022-05-18 18:20 | Observation (INO) ==
[2022-05-18] MEDS ORDERED: dilTIAZem HCl 5 MG/ML 5 ML VIAL IV STA ×2 (18:35→20:26)
[2022-05-18] MEDS ORDERED: SODIUM CHLORIDE 0.9% 1000ML 1,000 ML IV ONE (18:35)
[2022-05-18] MEDS: MAGNESIUM SULFATE / D5W 1 GM/100 ML BAG IV SCH ×3 (19:02→20:55)
[2022-05-18 19:04] LABS: Partial Thromboplastin Time 28.2 Seconds (21.0-31.0); Prothrombin Time 10.7 Seconds (9.0-12.0)
--- NOTE | 2022-05-18 19:20 | Emergency Department Note ---
Impression & Plan Atrial fibrillation with rapid ventricular response ED Provider Note NAME: MARINO BALLARD AGE: 61 SEX: F : 1960 ARRIVES VIA: Walk-In INFORMANT: Patient, ED PROVIDER(S): Gustavo Silverio DO CHIEF COMPLAINT: Palpitations HPI: The patient is a 61-year-old female who with a history of atrial fibrillation who presented to the emergency department because of palpitations and tachycardia. The patient states that she recently stopped taking Tikosyn but it was not helping her condition so they stopped it on Saturday. She started noticing symptoms yesterday but she thought she was just having PVCs. Today she started having symptoms of palpitations and fast heart rate. She has a history of paroxysmal atrial fibrillation as well as atrial flutter. She presented to the emergency department today because of the symptoms. She is symptomatic with it to a degree. She starting to have some weakness and shortness of breath with exertion. Otherwise she feels normal at her baseline. She notices no worsening swelling in her legs. She is had no vomiting. She notices no signs of GI bleeding such as black or bloody bowel moods. She has been compliant with her outpatient medications and is due to take her Eliquis at 7 PM. ROS: See above HPI for pertinent positives & negatives. A total of 10 systems reviewed and were otherwise negative. PAST MEDICAL HISTORY: See Below PAST SURGICAL HISTORY: See Below FAMILY HISTORY: See Below SOCIAL HISTORY: See Below HOME MEDICATIONS: See Below ALLERGIES: See Below VITALS: See Below PHYSICAL EXAMINATION: GENERAL: Patient is awake alert in no acute distress patient is resting comfortably and showing no signs of anxiety EYES: The conjunctivae are clear. The pupils are round and reactive. EARS, NOSE, MOUTH AND THROAT: The nose is without any evidence of any deformity. Mucous membranes are moist. Tongue is midline. NECK: The neck is nontender and supple. RESPIRATORY: Normal respiratory effort is noted there is no evidence of wheezing rhonchi or rales CARDIOVASCULAR: Tachycardic and irregular heart sounds are noted auscultation. There is no definite murmur. GASTROINTESTINAL: The abdomen is soft. Abdomen is nontender. MUSCULOSKELETAL/EXTREMITIES: There is no evidence of gross deformity full range of motion is noted in the hips and shoulders. SKIN: There was trace pedal edema noted bilaterally. Skin was warm and dry. NEUROLOGIC: Patient is awake alert and oriented x3 MEDICAL DECISION MAKING: The patient is a 61-year-old female who presented to the emergency department for an evaluation of palpitations. The patient has a history of atrial fibrillation. She did stop one of her antidysrhythmic medications recently. I am unsure if this is the cause of her symptoms that she states she has had the symptoms intermittently before she stopped taking the medication. The patient was treated with IV fluids. She was also treated with IV Cardizem. She was reevaluated multiple times. She was ordered IV magnesium but did not wish to have this medication. She was reevaluated and still in atrial fibrillation with RVR. This reason I discussed her condition with the on-call [facility] spitalist. They have agreed to evaluate the patient in the emergency department for further management and disposition. Triage Nursing notes reviewed. Prior medical records reviewed Vital Signs: reviewed and remarkable for tachycardia and hypertension. Differential diagnosis: Premature contractions, electrolyte abnormality, cardiac dysrhythmia, thyroid dysfunction, pulmonary embolism, infection, gastrointestinal, as well as other pathologies. ER treatment provided: See below Diagnostics interpreted by me: ECG: EKG was obtained in the emergency department. My interpretation is atrial fibrillation with rapid ventricular response. The rate was [address] segment depressions were noted. This was compared to a tracing from March 29, 2022. Sinus bradycardia has been replaced with rapid atrial fibrillation. The ST segment abnormalities are new compared to the previous tracing as well. Cardiac Monitoring: An order was placed for continuous cardiac monitoring. The monitor shows a rate of 112 bpm with atrial fibrillation with RVR. Laboratory studies: As stated above and show below. Imaging studies: See below Consultation(s): I discussed this case with Dr. Gorman is on-call for the [facility] hospitalist group. ED COURSE: Procedures: none Critical Care: I have personally spent greater than 40 minutes of critical care time in the direct management of this patient. This includes bedside care, interpretation of diagnostic studies, and testing, discussion with consultants, patient, and fa es members, and other required patient management activities. This 40 minutes is in excess of all separately billable procedures. Past Med/Surg History Medical History A-fib Atrial fibrillation with rapid ventricular response Diverticulosis History of coronary artery disease HTN (hypertension) Palpitations Family History Other No significant family history Social History Smoking Status: Never smoker Tobacco Type: Cigarettes Cigarettes Per Day: 7; Second Hand Exposure: No; Hx Alcohol Use: No Hx Substance Use: No Preferred Language: Italian Communication Ability: Effective Rn First Assistant Required: No Beliefs That Will Affect Care: None Current Living Situation: Significant Other Current Living Situation Comment: lives w/ friend - viet navarro current occupation: [employer] How many Children do You have: 3 Feels Safe at Home: Yes Assistive Devices: None Allergies Allergies Allergy/AdvReac Type Severity Reaction Status Date / Time Sulfa (Sulfonamide Allergy Unknown CAN'T Verified 03/26/22 00:01 Antibiotics) REMEMBER doxycycline AdvReac Intermediate CAUSED Verified 03/26/22 00:01 A-FIB Home Meds Home Medications Medication Instructions Recorded Confirmed cyanocobalamin (vitamin B-12) 1,000 mcg PO QPM 06/07/19 03/25/22 1,000 mcg tablet (Vitamin B-12) magnesium 250 mg tablet 250 mg PO QPM 06/07/19 03/25/22 cholecalciferol (vitamin D3) 25 25 mcg PO QPM 05/29/20 03/25/22 mcg (1,000 unit) capsule (Vitamin D3) latanoprost 0.005 % eye drops 1 drp OPB HS 05/29/20 03/25/22 rosuvastatin 5 mg tablet 5 mg PO DAILY 05/29/20 03/25/22 timolol maleate 0.5 % eye drops 1 drp OPB QAM 05/29/20 03/25/22 ascorbic acid (vitamin C) 1,000 mg 1 g PO QPM 02/05/22 03/25/22 tablet (Vitamin C) clopidogrel 75 mg tablet 75 mg PO QAM 03/11/22 03/25/22 guar gum 1 gram tablet 0 g PO DAILY 03/25/22 03/25/22 lactobacillus combination no.4 3 0 mmu cells PO DAILY 03/25/22 03/26/22 billion cell capsule (Probiotic) pantoprazole 40 mg tablet,delayed 40 mg PO DAILY 03/25/22 03/26/22 release Previous Rx's Medication Instructions Recorded apixaban 5 mg tablet (Eliquis) 5 mg PO BID #60 tab 02/07/22 dofetilide 500 mcg capsule 500 mcg PO BID #60 cap 03/30/22 (Tikosyn) Results & Data (ED) Vital Signs Vital Signs - 24 hr 05/18/22 18:20 05/18/22 18:21 05/18/22 19:01 Temperature 37.0 C Temperature Source Temporal Artery Scan Pulse Rate 108 H Pulse Rate [Apical] 153 H Pulse Rhythm Regular Pulse Strength Normal Respiratory Rate 20 18 Respiratory Effort / Characteristics Non-Labored Respiratory Depth Normal Respiratory Pattern Blood Pressure 183/109 H Blood Pressure [Right Arm] 159/120 H Blood Pressure Mean 133 Blood Pressure Mean [Right Arm] 133 Blood Pressure Position [Right Arm] Sitting Pulse Oximetry 97 97 97 Oxygen Delivery Method Room Air Room Air Room Air Sepsis Recent Fever Within 48 Hours No Sepsis New/Unexplained Change in Mental Status N/A Sepsis Action Taken by Nursing No Action Required 05/18/22 20:25 Temperature Temperature Source Pulse Rate Pulse Rate [Apical] 112 H Pulse Rhythm Pulse Strength Respiratory Rate 18 Respiratory Effort / Characteristics Non-Labored Spontaneous Respiratory Depth Normal Respiratory Pattern Regular Blood Pressure Blood Pressure [Right Arm] 144/115 H Blood Pressure Mean Blood Pressure Mean [Right Arm] 124 Blood Pressure Position [Right Arm] Sitting Pulse Oximetry 94 Oxygen Delivery Method Room Air Sepsis Recent Fever Within 48 Hours Sepsis New/Unexplained Change in Mental Status Sepsis Action Taken by Care Home Medications Current Medication List: was personally reviewed by me Laboratory Data Attestation: I reviewed the patient's lab results. Result diagrams: 05/18/22 18:41 05/18/22 18:41 Lab Results 05/18/22 05/18/22 05/18/22 Range/Units 18:41 18:41 18:41 WBC 7.16 (4.8-10.8) K/uL RBC 4.34 (4.2-5.4) M/uL Hgb 13.7 (12.0-16.0) g/dL Hct 39.4 (37-47) % MCV 90.8 (80-100) fL MCH 31.6 (25-34) pg MCHC 34.8 (32-36) g/dL RDW Std Deviation 40.8 (36.4-46.3) fL RDW Coeff of Adeel 12.2 (11.5-14.5) % Plt Count 224 (130-400) K/uL MPV 10.6 H (7.4-10.4) fL Immature Gran % (Auto) 0.3 % Neut % (Auto) 66.1 % Lymph % (Auto) 25.0 % [place] % (Auto) 7.0 % Eos % (Auto) 1.5 % Baso % (Auto) 0.1 % Neut # (Auto) 4.73 (1.4-6.5) K/uL Lymph # (Auto) 1.79 (1.2-3.4) K/uL [place] # (Auto) 0.50 (0.11-0.59) K/uL Eos # (Auto) 0.11 (0-0.5) K/uL Baso # (Auto) 0.01 (0-0.2) K/uL Immature Gran # (Auto) 0.02 (0.00-0.02) K/uL PT 10.7 (9.0-12.0) Seconds INR 1.0 (0.9-1.1) APTT 28.2 (21.0-31.0) Seconds PTT Ratio 1.0 Sodium 138 (136-145) mmol/L Potassium 3.7 (3.5-5.1) mmol/L Chloride 104 (98-107) mmol/L Carbon Dioxide 24 (21-32) mmol/L Anion Gap 10 (3-11) BUN 10 (6-23) mg/dl Creatinine 0.65 (0.6-1.2) mg/dl Est Cr Clr Drug Dosing 103.0 ml/min Est GFR ( Amer) 109.5 ml/min Est GFR (Non-Af Amer) 94.5 ml/min BUN/Creatinine Ratio 15.4 (10-20) Glucose 87 (70-99(Fasting)) mg/dl Calcium 9.7 (8.5-10.1) mg/dl Magnesium 2.2 (1.7-2.4) mg/dl Total Bilirubin 0.8 (0.2-1.0) mg/dl AST 18 (13-39) U/L ALT 20 (7-52) U/L Alkaline Phosphatase 54 (34-104) U/L Troponin I High Sens 7.6 (0-14) pg/ml Total Protein 8.2 (6.0-8.3) gm/dl Albumin 4.8 (3.4-5.0) gm/dl Globulin 3.4 (2.5-4.0) gm/dl Albumin/Globulin Ratio 1.4 (0.9-2) TSH (0.300-4.500) uIu/ml 05/18/22 Range/Units 18:41 WBC (4.8-10.8) K/uL RBC (4.2-5.4) M/uL Hgb (12.0-16.0) g/dL Hct (37-47) % MCV (80-100) fL MCH (25-34) pg MCHC (32-36) g/dL RDW Std Deviation (36.4-46.3) fL RDW Coeff of Adeel (11.5-14.5) % Plt Count (130-400) K/uL MPV (7.4-10.4) fL Immature Gran % (Auto) % Neut % (Auto) % Lymph % (Auto) % [place] % (Auto) % Eos % (Auto) % Baso % (Auto) % Neut # (Auto) (1.4-6.5) K/uL Lymph # (Auto) (1.2-3.4) K/uL [place] # (Auto) (0.11-0.59) K/uL Eos # (Auto) (0-0.5) K/uL Baso # (Auto) (0-0.2) K/uL Immature Gran # (Auto) (0.00-0.02) K/uL PT (9.0-12.0) Seconds INR (0.9-1.1) APTT (21.0-31.0) Seconds PTT Ratio Sodium (136-145) mmol/L Potassium (3.5-5.1) mmol/L Chloride (98-107) mmol/L Carbon Dioxide (21-32) mmol/L Anion Gap (3-11) BUN (6-23) mg/dl Creatinine (0.6-1.2) mg/dl Est Cr Clr Drug Dosing ml/min Est GFR ( Amer) ml/min Est GFR (Non-Af Amer) ml/min BUN/Creatinine Ratio (10-20) Glucose (70-99(Fasting)) mg/dl Calcium (8.5-10.1) mg/dl Magnesium (1.7-2.4) mg/dl Total Bilirubin (0.2-1.0) mg/dl AST (13-39) U/L ALT (7-52) U/L Alkaline Phosphatase (34-104) U/L Troponin I High Sens (0-14) pg/ml Total Protein (6.0-8.3) gm/dl Albumin (3.4-5.0) gm/dl Globulin (2.5-4.0) gm/dl Albumin/Globulin Ratio (0.9-2) TSH 2.107 (0.300-4.500) uIu/ml Administered Medications Discontinued Medications Diltiazem HCl (Diltiazem Hcl 5 Mg/Ml 5 Ml Vial) 10 mg IV NOW STA Stop: 05/18/22 18:36 Last Admin: 05/18/22 19:01 Dose: 10 mg Documented by: [id number] Cosigned by: [id number] Diltiazem HCl (Diltiazem Hcl 5 Mg/Ml 5 Ml Vial) 10 mg IV NOW STA Stop: 05/18/22 20:27 Last Admin: 05/18/22 20:39 Dose: 10 mg Documented by: [id number] Cosigned by: [id number] Sodium Chloride (Nss 1000ml) 1,000 mls @ 999 mls/hr IV .Q1H1M ONE Stop: 05/18/22 19:35 Last Infusion: 05/18/22 20:13 Dose: 0 mls/hr Documented by: [id number] Admin: 05/18/22 19:02 Dose: 999 mls/hr Documented by: [id number] Imaging Data Radiologist's Impression: Chest X-Ray 05/18/22 18:27 XR chest 1V portable CLINICAL HISTORY: Atypical chest pain. COMPARISON STUDY: Chest radiograph March 25, 2022. FINDINGS: Lung volumes are normal. Lungs are clear. There is no pneumothorax or pleural effusion. Cardiomegaly is unchanged. Mediastinal contours are normal. There is no evidence for pulmonary edema. IMPRESSION: No acute cardiopulmonary findings. Cardiomegaly. ACT 112: Negative or not required by law. Electronically signed by: Leonidas Pierre M.D. 05/18/2022 7:22 PM Discharge Plan Visit Data Chief Complaint: Arrhythmia/Palpitations Stated Complaint: HISTORY OF HEART ATTACK, BURNING IN CHEST, AFIB ED Provider: Gustavo Silverio Discharge Problem: Atrial fibrillation with rapid ventricular response Patient Disposition: Being Evaluated by Hospitalist Forms Stand Alone Forms: My [facility] Prescriptions Prescriptions: No Action rosuvastatin 5 mg tablet 5 mg PO DAILY RF: 0 latanoprost 0.005 % drops 1 drp OPB HS RF: 0 timolol maleate 0.5 % drops 1 drp OPB QAM RF: 0 cholecalciferol (vitamin D3) [Vitamin D3] 25 mcg (1,000 unit) Capsule 25 mcg PO QPM RF: 0 cyanocobalamin (vitamin B-12) [Vitamin B-12] 1,000 mcg Tablet 1,000 mcg PO QPM RF: 0 magnesium 250 mg Tablet 250 mg PO QPM RF: 0 guar gum 1 gram Tablet 0 g PO DAILY RF: 0 pantoprazole 40 mg tablet,delayed release (DR/EC) 40 mg PO DAILY RF: 0 Probiotic 3 billion cell Capsule 0 mmu cells PO DAILY RF: 0 dofetilide [Tikosyn] 500 mcg capsule 500 mcg PO BID Qty: 60 RF: 0 ascorbic acid (vitamin C) [Vitamin C] 1,000 mg Tablet 1 g PO QPM RF: 0 Eliquis 5 mg tablet 5 mg PO BID Qty: 60 RF: 0 clopidogrel 75 mg tablet 75 mg PO QAM RF: 0 Referrals Referrals: Ilana Harris MD [Primary Care Provider] -
[2022-05-18 19:22] LABS: Troponin I High Sensitivity 7.6 pg/ml (0-14)
--- NOTE | 2022-05-18 19:24 | XRay Report ---
XR chest 1V portable CLINICAL HISTORY: Atypical chest pain. COMPARISON STUDY: Chest radiograph March 25, 2022. FINDINGS: Lung volumes are normal. Lungs are clear. There is no pneumothorax or pleural effusion. Car diomegaly is unchanged. Mediastinal contours are normal. There is no evidence for pulmonary edema. IMPRESSION: No acute cardiopulmonary findings. Cardiomegaly. ACT 112: Negative or not required by law. Electronically signed by: Leonidas Pierre M.D. 05/18/2022 7:22 PM
[2022-05-18 19:36] LABS: Albumin Globulin Ratio 1.4 (0.9-2); Albumin Level 4.8 gm/dl (3.4-5.0); BUN Creatinine Ratio 15.4 (10-20); Bilirubin,Total 0.8 mg/dl (0.2-1.0); Calcium 9.7 mg/dl (8.5-10.1); Est GFR (African American) 109.5 ml/min; Est GFR (Non-African American) 94.5 ml/min; Globulin 3.4 gm/dl (2.5-4.0); Magnesium 2.2 mg/dl (1.7-2.4); Potassium 3.7 mmol/L (3.5-5.1); Total Protein 8.2 gm/dl (6.0-8.3)
[2022-05-18 19:50] LABS: Basophils # (auto) 0.01 K/uL (0-0.2); Basophils % (auto) 0.1 %; Eosinophils # (auto) 0.11 K/uL (0-0.5); Eosinophils % (auto) 1.5 %; Hematocrit (blood only) 39.4 % (37-47); Hemoglobin 13.7 g/dL (12.0-16.0); Immature Granulocytes # (auto) 0.02 K/uL (0.00-0.02); Immature Granulocytes % (auto) 0.3 %; Lymphocytes # (auto) 1.79 K/uL (1.2-3.4); Mean Corpuscular Hemoglobin 31.6 pg (25-34); Mean Corpuscular Hgb Conc 34.8 g/dL (32-36); Mean Corpuscular Volume 90.8 fL (80-100); Mean Platelet Volume 10.6 fL (7.4-10.4); Neutrophils # (auto) 4.73 K/uL (1.4-6.5); Neutrophils % (auto) 66.1 %; Platelet Count 224 K/uL (130-400); RDW Coefficient of Variation 12.2 % (11.5-14.5); RDW Standard Deviation 40.8 fL (36.4-46.3); Red Blood Count 4.34 M/uL (4.2-5.4); White Blood Count 7.16 K/uL (4.8-10.8)
[2022-05-18] MEDS ORDERED: POTASSIUM CHLORIDE CRTAB 20 MEQ TABCR PO STA (20:45)
--- NOTE | 2022-05-18 21:48 | History & Physical Report ---
Date of Service May 18, 2022 Assessment & Plan (1) Paroxysmal atrial fibrillation: (2) Atrial fibrillation with rapid ventricular response: (3) HTN (hypertension): (4) CAD (coronary artery disease): (5) Dyslipidemia: (6) Obesity: (7) YFN (obstructive sleep apnea): Plan: HPI, PE, med rec completed by Velma Del Cid PA-C. Assessment and plan per Dr Constantino. See addendum. History of Present Illness Chief Complaint: Palpitations Primary Care Provider: Ilana Harris MD Patient is a 61-year-old female with PMH sinus bradycardia, paroxysmal atrial fibrillation anticoagulated on Eliquis, history of atrial flutter s/p ablation in 2010, CAD s/p PCI, HTN, HLD, tobacco use presented to ER with complaint of palpitations started this evening. Describes palpitations with associated left chest burning sensation. Today felt lightheaded. Patient with history of paroxysmal atrial fibrillation, previously uncontrolled on Toprol, sotalol. Previously on flecainide which was discontinued in 01/2022. Has had recurrent episodes of PAF over past several months. Started on Tikosyn in 03/2022 and was subsequently discontinued by patient on 05/12/22 secondary to side effects. History borderline tachybrady syndrome. Seen by cardiology 05/17/22 and verapamil 40mg BID planned to be started 05/19/22 after Tikosyn washout completed. Patient reports intermittent episodes of left chest discomfort that can occur with episodes of a-fib and without. Also reports sometimes has SOB with afib but denies any current afib today. Denies fever/chills, diaphoresis, N/V/D/C, syncope, vision changes, neck pain, orthopnea, cough, sore throat, choking, otalgia, rhinorrhea, paresthesias, weakness, extremity weakness, extremity edema, rashes, urinary symptoms. Today in ER patient presented in atrial fibrillation RVR. Was given Cardizem bolus and has converted to sinus rhythm. She reports feeling better and decreased chest discomfort. Allergies Allergy/AdvReac Type Severity Reaction Status Date / Time Sulfa (Sulfonamide Allergy Unknown CAN'T Verified 03/26/22 00:01 Antibiotics) REMEMBER dofetilide [From Tikosyn] AdvReac Intermediate ill Verified 05/18/22 23:55 doxycycline AdvReac Intermediate CAUSED Verified 03/26/22 00:01 A-FIB Home Medications Medication Instructions Recorded Confirmed Type cyanocobalamin (vitamin B-12) 1,000 mcg PO DAILY 06/07/19 05/18/22 History 1,000 mcg tablet (Vitamin B-12) magnesium 250 mg tablet 250 mg PO QPM 06/07/19 05/18/22 History cholecalciferol (vitamin D3) 25 25 mcg PO DAILY 05/29/20 05/18/22 History mcg (1,000 unit) capsule (Vitamin D3) latanoprost 0.005 % eye drops 1 drp OPB HS 05/29/20 05/18/22 History rosuvastatin 5 mg tablet 5 mg PO DAILY 05/29/20 05/18/22 History timolol maleate 0.5 % eye drops 1 drp OPB QAM 05/29/20 05/18/22 History ascorbic acid (vitamin C) 1,000 mg 1 g PO DAILY 02/05/22 05/18/22 History tablet (Vitamin C) apixaban 5 mg tablet (Eliquis) 5 mg PO BID #60 tab 02/07/22 05/18/22 Rx clopidogrel 75 mg tablet 75 mg PO QAM 03/11/22 05/18/22 History lactobacillus combination no.4 3 0 mmu cells PO DAILY 03/25/22 05/18/22 History billion cell capsule (Probiotic) pantoprazole 40 mg tablet,delayed 40 mg PO DAILY 03/25/22 05/18/22 History release lisinopril 10 mg tablet 10 mg PO DAILY 05/18/22 05/18/22 History Past Med/Surg History Medical History (Updated 05/18/22 @ 22:39 by Velma Del Cid PA-C) A-fib Atrial fibrillation with rapid ventricular response CAD (coronary artery disease) Diverticulosis Dyslipidemia History of coronary artery disease HTN (hypertension) Obesity YFN (obstructive sleep apnea) Palpitations Paroxysmal atrial fibrillation Surgical History (Updated 05/18/22 @ 22:39 by Velma Del Cid PA-C) History of cardiac radiofrequency ablation History of colonoscopy History of hernia repair Family History (Updated 05/18/22 @ 22:40 by Velma Del Cid PA-C) Other Diabetes Heart disease Hypertension Social History Smoking Status: Never smoker Tobacco Type: Cigarettes Cigarettes Per Day: 7; Second Hand Exposure: No; Hx Alcohol Use: No Hx Substance Use: No Preferred Language: Rw[place] Communication Ability: Effective [employer] Required: No Beliefs That Will Affect Care: None Current Living Situation: Significant Other Current Living Situation Comment: lives w/ friend - viet navarro 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 How many Children do You have: 3 Feels Safe at Home: Yes Assistive Devices: None Review of Systems Review of Systems: All systems reviewed & are unremarkable except as noted in HPI & below Physical Exam Physical Exam: General: no distress, obese Head: normocephalic, atraumatic Eyes: PERRL, EOM's intact, conjunctiva non-injected, anicteric ENT: normal inspection external ears, nose, mucous membranes moist Neck: supple, trachea midline Lungs: clear, no respiratory distress, no wheezing/rhonchi/rales CV: RRR, no murmur, trace pretibial edema Abd: protuberant, normal BS, soft, non-tender Ext: no cyanosis, no calf tenderness Neuro: A&O x 3, no focal deficits noted, normal affect Skin: warm, dry Results & Data Results & Data ([facility]) Vital Signs (Past 12 Hours) Vital Signs Temp Pulse Pulse Resp BP BP Pulse Ox 05/18/22 21:26 97 H 18 148/89 H 94 05/18/22 20:25 112 H 18 144/115 H 94 05/18/22 19:01 153 H 18 159/120 H 97 05/18/22 18:21 37.0 C 108 H 20 183/109 H 97 05/18/22 18:20 97 Laboratory Results Short CBC 05/18/22 05/18/22 Range/Units 18:41 18:41 WBC 7.16 (4.8-10.8) K/uL Hgb 13.7 (12.0-16.0) g/dL Hct 39.4 (37-47) % Plt Count 224 (130-400) K/uL Troponin I High Sens 7.6 (0-14) pg/ml BMP 05/18/22 18:41 Sodium 138 Potassium 3.7 Chloride 104 Carbon Dioxide 24 BUN 10 Creatinine 0.65 Glucose 87 Calcium 9.7 Liver Function 05/18/22 Range/Units 18:41 Total Bilirubin 0.8 (0.2-1.0) mg/dl AST 18 (13-39) U/L ALT 20 (7-52) U/L Alkaline Phosphatase 54 (34-104) U/L Albumin 4.8 (3.4-5.0) gm/dl Diagnostic Findings Chest X-Ray 05/18/22 18:27 XR chest 1V portable CLINICAL HISTORY: Atypical chest pain. COMPARISON STUDY: Chest radiograph March 25, 2022. FINDINGS: Lung volumes are normal. Lungs are clear. There is no pneumothorax or pleural effusion. Cardiomegaly is unchanged. Mediastinal contours are normal. There is no evidence for pulmonary edema. IMPRESSION: No acute cardiopulmonary findings. Cardiomegaly. ACT 112: Negative or not required by law. Electronically signed by: Leonidas Pierre M.D. 05/18/2022 7:22 PM Supervising Physician Co-Signing Physician Notes IM ATTENDING : Patient seen and examined. History obtained from patient and records. Preceding documentation by Ms. Velma Del Cid PA-C reviewed. FINAL ASSESSMENT AND PLAN as follows : Chest pain Possibly from uncontrolled blood pressure/recurrent AF with uncontrolled rate secondary to medication noncompliance (Tikosyn intolerance), hx of ablation on Eliquis , sp NSR conversion at the ER. Similar to heart attack episode as per patient account, hx CAD sp stent Rule out ACS hyperlipidemia on statin Rx mood disorder, at baseline YFN CPAP noncompliance prediabetes, hemoglobin A1c of 5.23 February 2022 past tobacco abuse OBS PCU Follow troponin TTE if with progression of cardiology consult Re: Recurrent AF, chest pain (Patient requesting to switch to [place] [facility] provider from [facility]). DVT prophylaxis. Eliquis Full code Text document was generated using [employer] voice recognition software. It may contain grammatical or spelling errors. Kindly contact undersigned for clarification of any documentation item in question. (1) HTN (hypertension) Hypertension type: unspecified Qualified Code(s): I10 - Essential (primary) hypertension
--- NOTE | 2022-05-18 22:45 | History & Physical Report ---
Date of Service May 18, 2022 History of Present Illness Primary Care Provider: Ilana Harris MD Allergies Allergy/AdvReac Type Severity Reaction Status Date / Time Sulfa (Sulfonamide Allergy Unknown CAN'T Verified 03/26/22 00:01 Antibiotics) REMEMBER doxycycline AdvReac Intermediate CAUSED Verified 03/26/22 00:01 A-FIB Home Medications Medication Instructions Recorded Confirmed Type cyanocobalamin (vitamin B-12) 1,000 mcg PO DAILY 06/07/19 05/18/22 History 1,000 mcg tablet (Vitamin B-12) magnesium 250 mg tablet 250 mg PO QPM 06/07/19 05/18/22 History cholecalciferol (vitamin D3) 25 25 mcg PO DAILY 05/29/20 05/18/22 History mcg (1,000 unit) capsule (Vitamin D3) latanoprost 0.005 % eye drops 1 drp OPB HS 05/29/20 05/18/22 History rosuvastatin 5 mg tablet 5 mg PO DAILY 05/29/20 05/18/22 History timolol maleate 0.5 % eye drops 1 drp OPB QAM 05/29/20 05/18/22 History ascorbic acid (vitamin C) 1,000 mg 1 g PO DAILY 02/05/22 05/18/22 History tablet (Vitamin C) apixaban 5 mg tablet (Eliquis) 5 mg PO BID #60 tab 02/07/22 05/18/22 Rx clopidogrel 75 mg tablet 75 mg PO QAM 03/11/22 05/18/22 History lactobacillus combination no.4 3 0 mmu cells PO DAILY 03/25/22 05/18/22 History billion cell capsule (Probiotic) pantoprazole 40 mg tablet,delayed 40 mg PO DAILY 03/25/22 05/18/22 History release lisinopril 10 mg tablet 10 mg PO DAILY 05/18/22 05/18/22 History Past Med/Surg History Medical History (Updated 05/18/22 @ 22:39 by Velma Del Cid PA-C) A-fib Atrial fibrillation with rapid ventricular response CAD (coronary artery disease) Diverticulosis Dyslipidemia History of coronary artery disease HTN (hypertension) Obesity YFN (obstructive sleep apnea) Palpitations Paroxysmal atrial fibrillation Surgical History (Updated 05/18/22 @ 22:39 by Velma Del Cid PA-C) History of cardiac radiofrequency ablation History of colonoscopy History of hernia repair Family History (Updated 05/18/22 @ 22:40 by Velma Del Cid PA-C) Other Diabetes Heart disease Hypertension Social History Smoking Status: Never smoker Tobacco Type: Cigarettes Cigarettes Per Day: 7; Second Hand Exposure: No; Hx Alcohol Use: No Hx Substance Use: No Preferred Language: Greek Communication Ability: Effective Ribber Required: No Beliefs That Will Affect Care: None Current Living Situation: Significant Other Current Living Situation Comment: lives w/ friend - veit navarro 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) Vital Signs (Past 12 Hours) Vital Signs Temp Pulse Pulse Resp BP BP Pulse Ox 05/18/22 22:14 71 18 144/101 H 96 05/18/22 21:26 97 H 18 148/89 H 94 05/18/22 20:25 112 H 18 144/115 H 94 05/18/22 19:01 153 H 18 159/120 H 97 05/18/22 18:21 37.0 C 108 H 20 183/109 H 97 05/18/22 18:20 97 Laboratory Results Laboratory Results WBC 7.16 K/uL (4.8-10.8) 05/18/22 18:41 RBC 4.34 M/uL (4.2-5.4) 05/18/22 18:41 Hgb 13.7 g/dL (12.0-16.0) 05/18/22 18:41 Hct 39.4 % (37-47) 05/18/22 18:41 MCV 90.8 fL (80-100) 05/18/22 18:41 MCH 31.6 pg (25-34) 05/18/22 18:41 MCHC 34.8 g/dL (32-36) 05/18/22 18:41 RDW Std Deviation 40.8 fL (36.4-46.3) 05/18/22 18:41 RDW Coeff of Adeel 12.2 % (11.5-14.5) 05/18/22 18:41 Plt Count 224 K/uL (130-400) 05/18/22 18:41 MPV 10.6 fL (7.4-10.4) H 05/18/22 18:41 Immature Gran % (Auto) 0.3 % 05/18/22 18:41 Neut % (Auto) 66.1 % 05/18/22 18:41 Lymph % (Auto) 25.0 % 05/18/22 18:41 [place] % (Auto) 7.0 % 05/18/22 18:41 Eos % (Auto) 1.5 % 05/18/22 18:41 Baso % (Auto) 0.1 % 05/18/22 18:41 Neut # (Auto) 4.73 K/uL (1.4-6.5) 05/18/22 18:41 Lymph # (Auto) 1.79 K/uL (1.2-3.4) 05/18/22 18:41 [place] # (Auto) 0.50 K/uL (0.11-0.59) 05/18/22 18:41 Eos # (Auto) 0.11 K/uL (0-0.5) 05/18/22 18:41 Baso # (Auto) 0.01 K/uL (0-0.2) 05/18/22 18:41 Immature Gran # (Auto) 0.02 K/uL (0.00-0.02) 05/18/22 18:41 PT 10.7 Seconds (9.0-12.0) 05/18/22 18:41 INR 1.0 (0.9-1.1) 05/18/22 18:41 APTT 28.2 Seconds (21.0-31.0) 05/18/22 18:41 PTT Ratio 1.0 05/18/22 18:41 Sodium 138 mmol/L (136-145) 05/18/22 18:41 Potassium 3.7 mmol/L (3.5-5.1) 05/18/22 18:41 Chloride 104 mmol/L (98-107) 05/18/22 18:41 Carbon Dioxide 24 mmol/L (21-32) 05/18/22 18:41 Anion Gap 10 (3-11) 05/18/22 18:41 BUN 10 mg/dl (6-23) 05/18/22 18:41 Creatinine 0.65 mg/dl (0.6-1.2) 05/18/22 18:41 Est Cr Clr Drug Dosing 103.0 ml/min 05/18/22 18:41 Est GFR ( Amer) 109.5 ml/min 05/18/22 18:41 Est GFR (Non-Af Amer) 94.5 ml/min 05/18/22 18:41 BUN/Creatinine Ratio 15.4 (10-20) 05/18/22 18:41 Glucose 87 mg/dl (70-99(Fasting)) 05/18/22 18:41 Calcium 9.7 mg/dl (8.5-10.1) 05/18/22 18:41 Magnesium 2.2 mg/dl (1.7-2.4) 05/18/22 18:41 Total Bilirubin 0.8 mg/dl (0.2-1.0) 05/18/22 18:41 AST 18 U/L (13-39) 05/18/22 18:41 ALT 20 U/L (7-52) 05/18/22 18:41 Alkaline Phosphatase 54 U/L (34-104) 05/18/22 18:41 Troponin I High Sens 7.6 pg/ml (0-14) 05/18/22 18:41 Total Protein 8.2 gm/dl (6.0-8.3) 05/18/22 18:41 Albumin 4.8 gm/dl (3.4-5.0) 05/18/22 18:41 Globulin 3.4 gm/dl (2.5-4.0) 05/18/22 18:41 Albumin/Globulin Ratio 1.4 (0.9-2) 05/18/22 18:41 TSH 2.107 uIu/ml (0.300-4.500) 05/18/22 18:41 SARS-CoV-2, RNA, NAAT NEGATIVE (NEGATIVE) 05/18/22 20:51 Impressions Chest X-Ray 05/18/22 18:27 XR chest 1V portable CLINICAL HISTORY: Atypical chest pain. COMPARISON STUDY: Chest radiograph March 25, 2022. FINDINGS: Lung volumes are normal. Lungs are clear. There is no pneumothorax or pleural effusion. Cardiomegaly is unchanged. Mediastinal contours are normal. There is no evidence for pulmonary edema. IMPRESSION: No acute cardiopulmonary findings. Cardiomegaly. ACT 112: Negative or not required by law. Electronically signed by: Leonidas Pierre M.D. 05/18/2022 7:22 PM
[2022-05-19] MEDS ORDERED: traMADol HCL 50 MG TABLET PO PRN (00:22)
[2022-05-19] MEDS ORDERED: MoRPHine SULFATE 4 MG/ML 1 ML CARP\\VIAL IV PRN (00:22)
[2022-05-19] MEDS ORDERED: ACETAMINOPHEN 325 MG TAB PO PRN (00:22)
[2022-05-19] MEDS ORDERED: NITROGLYCERIN SL 0.4 MG/TAB TAB SL PRN (00:22)
[2022-05-19] MEDS ORDERED: LORazepam 0.5 MG in SYRINGE 0.25 ML IV PRN (00:22)
[2022-05-19 06:41] LABS: Basophils # (auto) 0.01 K/uL (0-0.2); Basophils % (auto) 0.2 %; Eosinophils # (auto) 0.08 K/uL (0-0.5); Eosinophils % (auto) 1.5 %; Hemoglobin 12.9 g/dL (12.0-16.0); Immature Granulocytes # (auto) 0.01 K/uL (0.00-0.02); Immature Granulocytes % (auto) 0.2 %; Lymphocytes # (auto) 1.41 K/uL (1.2-3.4); Lymphocytes % (auto) 27.2 %; Mean Corpuscular Hemoglobin 32.5 pg (25-34); Mean Corpuscular Hgb Conc 34.9 g/dL (32-36); Mean Corpuscular Volume 93.2 fL (80-100); Mean Platelet Volume 10.4 fL (7.4-10.4); Monocytes # (auto) 0.44 K/uL (0.11-0.59); Monocytes % (auto) 8.5 %; Neutrophils # (auto) 3.23 K/uL (1.4-6.5); Neutrophils % (auto) 62.4 %; Platelet Count 191 K/uL (130-400); RDW Coefficient of Variation 12.3 % (11.5-14.5); Red Blood Count 3.97 M/uL (4.2-5.4); White Blood Count 5.18 K/uL (4.8-10.8)
[2022-05-19 07:09] LABS: BUN Creatinine Ratio 16.4 (10-20); Calcium 8.8 mg/dl (8.5-10.1); Creatinine Clr Calc Pharmacy 109.2 ml/min; Est GFR (African American) 111.8 ml/min; Est GFR (Non-African American) 96.5 ml/min; Potassium 4.1 mmol/L (3.5-5.1)
[2022-05-19] MEDS ORDERED: ADVANCED PROBIOTIC 1250 MG CAPSULE PO SCH (09:00)
[2022-05-19] MEDS ORDERED: CLOPIDOGREL BISULFATE 75 MG TAB PO SCH (09:00)
[2022-05-19] MEDS ORDERED: APIXABAN 5 MG TABLET PO SCH (09:00)
[2022-05-19] MEDS ORDERED: PANTOprazole 40 MG TAB PO SCH (09:00)
[2022-05-19] MEDS ORDERED: TIMOLOL MALEATE 0.5% OP SOLN 5 ML BTL OP SCH (09:00)
[2022-05-19] MEDS ORDERED: lisinopril 10 MG TAB PO SCH (09:00)
[2022-05-19] MEDS ORDERED: CYANOCOBALAMIN (B-12) 500 MCG TABLET PO SCH (09:00)
[2022-05-19] MEDS ORDERED: ROSUVASTATIN CALCIUM 5 MG TAB PO SCH (09:00)
--- NOTE | 2022-05-19 14:23 | Cardiology Consultation ---
Date of Consultation May 19, 2022 Assessment & Plan (1) Paroxysmal atrial fibrillation: (2) CAD (coronary artery disease): (3) S/P coronary artery stent placement: (4) Dyslipidemia: (5) YFN (obstructive sleep apnea): (6) HTN (hypertension): (7) Chest pain: (8) Anticoagulant long-term use: ASSESSMENT/PLAN: 1. Paroxysmal atrial fibrillation: Currently in sinus rhythm. Symptomatic with AFib. Has been on flecainide (discontinued when NSTEMI), sotalol, and Tikosyn. Commonly mildly bradycardic and therefore beta-george had been discontinued in the past by [facility]. Verapamil 40 mg twice daily prescribed by [facility] cardiology but she has not yet started taking the medication and does not want to take it on a regular basis. Ablation seems like a reasonable approach as already outlined by Dr. An. She was asked to keep the scheduled appointment but as per her request, she would like to see electrophysiology with [facility] as well. Message sent to cardiology office to help arrange this consultation for her. In the meantime, she can use the verapamil as outlined by [facility] on an as-needed basis for an episode of atrial fibrillation, which may help her tolerate it and avoid hospitalization. Continue anticoagulation for stroke risk reduction. 2. CAD s/p LAD PCI: Continue anti-platelet therapy indefinitely. Continue Plavix for at least 1 year from PCI while on therapeutic anticoagulation therapy. Not on beta-george due to resting bradycardia while in sinus. Continue statin therapy. 3. Dyslipidemia: LDL well controlled. Continue statin therapy. Consider high- intensity statin therapy. 4. Obstructive sleep apnea: Discussed how appropriately treated sleep apnea may improve her AFib burden. She has not tolerated CPAP due to dental issues. She uses a dental apparatus. 5. Hypertension: Blood pressure was initially elevated but now well controlled. No changes made at this time. 6. Chest pain: Chest pain occurred in the setting of AFib with RVR. Could be due to AFib or from the rapid rate in the setting of subtotal small PDA. Pain is not consistent with thrombosis of her recent LAD stent, given lack of ST elevation and minimal troponin change. 7. Disposition: Patient care communicated with primary hospitalist, Dr. Townsend. Can be discharged from a cardiology perspective. As per discussion with Ms. Middleton, Dr. nA notified and discussed. Second opinion with [facility] requested from Cardiology office. She has also requested that her CAD care be transitioned to [facility]. Today's visit was 75 minutes in duration, which included over 50% of that time [id number] with patient, counseling, and coordinating care. Time included chart review, communication with multiple providers as noted above, and document completion. Thank you for allowing me to participate in the care of your patient. Please call for any other questions or concerns. Sincerely, Justin Cardoza M.D. History of Present Illness Reason for Consultation: 2nd opinion for atrial fibrillation Requesting Physician: Dr. Constantino Attending Physician: Glenis Townsend MD History of Present Illness Ms. Middleton is a 61-year-old female with history significant for paroxysmal atrial fibrillation, anticoagulation therapy, atrial flutter s/p ablation (2010), CAD s/p PCI, hypertension, dyslipidemia, and obstructive sleep apnea (using dental apparatus due to difficulty with CPAP). She has been followed by [facility] cardiology but has requested a second opinion with [facility]. In 2010, she developed atrial flutter with rapid ventricular response and underwent ablation at [facility]. She reports flecainide initiation in 2010 and did well for years. She had intermittent episodes of atrial fibrillation. In January of 2022, she had NSTEMI and underwent PCI of her LAD. Flecainide was discontinued. She reports that approximately 5 weeks later she developed further AFib and was hospitalized for sotalol initiation. She had AFib 2 weeks later with significant symptoms and near-syncope. Sotalol was discontinued in place of Tikosyn. She continued to have episodes of atrial fibrillation and overall believe that the frequency was increasing while on Tikosyn. She also did not feel well on Tikosyn. She self discontinued Tikosyn on 05/15/2022 and met with [facility] in the outpatient setting. Verapamil was prescribed. She had been seen by Dr. Macario in the outpatient setting and then Dr. An of electrophysiology. She has been referred to [facility] by local [facility] drill press hand in anticipation of atrial fib ablation,but the appointment is not scheduled until late this summer with Dr. Villanueva. She continues to have episodes of atrial fibrillation and states that episodes last on average 12-14 hours. She feels palpitations and a burning across her chest. Her heart rate can be elevated into the 150s to 160s. She wonders if with this presentation, that AFib may have been present throughout the day and she questions if she was having PVCs. In the emergency department, she was administered diltiazem IV and converted to sinus rhythm. Her chest discomfort and palpitations resolved. She denies shortness of breath, syncope, edema, or bleeding such as melena, hematochezia, or hematuria. She denies a history of diabetes, TIA, or stroke. She recalls being told in the past that she had a conversion pause while hospitalized and converting to sinus rhythm. She reports having cardioversions in the past but none recently. In regards to her sleep apnea, she was having dental issues which affected the use of her CPAP and therefore now uses a dental apparatus. She admits that her domestic partner has witnessed apneic episode at home where he would wake her up to make sure she was okay. She currently feels back to baseline. She has not yet picked up the prescription of verapamil and would very much like to avoid more medical therapy. She inquired about pacemaker, noting that she has had bradycardia while in sinus and tachycardia while in AFib. 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 She has had the following studies/procedures: 1. Atrial flutter ablation November [place] [facility]: Dr. Espinoza 2. Echo 02/06/2022 [facility]: Normal LV size, wall motion, systolic function. EF 55-60%. Mild MR. Mild left atrial dilation. 3. Cardiac catheterization 02/06/2022 [facility] (Dr. Greer): Ostial LM 20% taper/been. Mid LAD 60-70% (FFR 0.77). Distal LAD 30%. Proximal circumflex 10%. Mid circumflex 20%. Proximal RCA 10-20% diffuse. Mid RCA 30%. Distal PDA 99% subtotal occlusion (very small). Underwent PCI of mid LAD with 3 x 15 mm Xience, post dilated 3.5 NC. Review of systems: As above. Review of systems otherwise negative/unremarkable. Family history: Father with CAD. Sister with CAD. Mother with pacemaker. Social history: She quit smoking in January of 2022. Rare alcohol. No drug abuse. She lives at home with Bereket, her partner. Three daughters. Three grandson's. Her daughter, Jessie, was present for the entire visit today at the bedside. Her daughter, Danyelle, presented near the end of today's discussion. Allergies Allergy/AdvReac Type Severity Reaction Status Date / Time Sulfa (Sulfonamide Allergy Unknown CAN'T Verified 03/26/22 00:01 Antibiotics) REMEMBER dofetilide [From Tikosyn] AdvReac Intermediate ill Verified 05/18/22 23:55 doxycycline AdvReac Intermediate CAUSED Verified 03/26/22 00:01 A-FIB Home Medications Medication Instructions Recorded Confirmed Type cyanocobalamin (vitamin B-12) 1,000 mcg PO DAILY 06/07/19 05/18/22 History 1,000 mcg tablet (Vitamin B-12) magnesium 250 mg tablet 250 mg PO QPM 06/07/19 05/18/22 History cholecalciferol (vitamin D3) 25 25 mcg PO DAILY 05/29/20 05/18/22 History mcg (1,000 unit) capsule (Vitamin D3) latanoprost 0.005 % eye drops 1 drp OPB HS 05/29/20 05/18/22 History timolol maleate 0.5 % eye drops 1 drp OPB QAM 05/29/20 05/18/22 History ascorbic acid (vitamin C) 1,000 mg 1 g PO DAILY 02/05/22 05/18/22 History tablet (Vitamin C) apixaban 5 mg tablet (Eliquis) 5 mg PO BID #60 tab 02/07/22 05/18/22 Rx clopidogrel 75 mg tablet 75 mg PO QAM 03/11/22 05/18/22 History lactobacillus combination no.4 3 0 mmu cells PO DAILY 03/25/22 05/18/22 History billion cell capsule (Probiotic) pantoprazole 40 mg tablet,delayed 40 mg PO DAILY 03/25/22 05/18/22 History release lisinopril 10 mg tablet 10 mg PO DAILY 05/18/22 05/18/22 History Vitamin D3 1,000 units PO 1XD 05/19/22 05/19/22 History guar gum 1 tbsp PO DAILY 05/19/22 05/19/22 History mecobalamin (vitamin B12) 1,000 1,000 mcg PO 05/19/22 History mcg chewable tablet (B12 Active) rosuvastatin 20 mg tablet (Crestor) 5 mg PO DAILY 05/19/22 05/19/22 History rosuvastatin 5 mg tablet 5 mg PO DAILY 05/19/22 05/19/22 History verapamil 40 mg tablet 40 mg PO BID 05/19/22 05/19/22 History Patient History Medical History (Updated 05/19/22 @ 17:01 by Ignacio Cardoza MD) Atrial fibrillation with rapid ventricular response Atrial flutter CAD (coronary artery disease) Diverticulosis Dyslipidemia History of coronary artery disease HTN (hypertension) Obesity YFN (obstructive sleep apnea) Palpitations Paroxysmal atrial fibrillation Surgical History (Updated 05/19/22 @ 17:01 by Ignacio Cardoza MD) History of cardiac radiofrequency ablation History of colonoscopy History of hernia repair S/P coronary artery stent placement Family History (Updated 05/18/22 @ 22:40 by Velma Del Cid PA-C) Other Diabetes Heart disease Hypertension Social History Smoking Status: Former smoker Tobacco Type: Cigarettes Cigarettes Per Day: 7; Second Hand Exposure: No; Hx Alcohol Use: No Hx Substance Use: No Preferred Language: Omani Communication Ability: Effective Garment Fitter Required: No Beliefs That Will Affect Care: None Current Living Situation: Significant Other Current Living Situation Comment: Bereket Gonzales 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 Alert and oriented. HEENT: Anicteric sclera. Neck: Thick neck. No JVD. No bruits. Normal carotid upstrokes bilaterally. Cardiac: No ventricular heave. Regular near 60 bpm. Normal S1-S2. No murmurs, rubs, or gallops. Pulmonary: Clear to auscultation bilaterally without wheezes, rales, or rhonchi. Abdomen: Soft, nontender, nondistended, with normoactive bowel sounds. No bruits noted. Extremities: 2+ radial pulses bilaterally. 2+ posterior tibialis pulses bilaterally. No significant pitting edema. No cyanosis. Psychiatric: Affect appears appropriate. Results & Data ([facility]) Vital Signs (Past 12 Hours) Vital Signs Temp Pulse Pulse Resp BP Pulse Ox 05/19/22 10:55 36.7 C 53 L 16 117/69 97 05/19/22 07:35 36.7 C 56 L 18 127/76 96 05/19/22 06:12 56 L 05/19/22 03:24 36.6 C 54 L 17 99/40 L 94 Laboratory Results Laboratory Results - last 24 hr 05/18/22 05/18/22 05/18/22 18:41 18:41 18:41 WBC 7.16 RBC 4.34 Hgb 13.7 Hct 39.4 MCV 90.8 MCH 31.6 MCHC 34.8 RDW Std Deviation 40.8 RDW Coeff of Adeel 12.2 Plt Count 224 MPV 10.6 H Immature Gran % (Auto) 0.3 Neut % (Auto) 66.1 Lymph % (Auto) 25.0 [place] % (Auto) 7.0 Eos % (Auto) 1.5 Baso % (Auto) 0.1 Neut # (Auto) 4.73 Lymph # (Auto) 1.79 [place] # (Auto) 0.50 Eos # (Auto) 0.11 Baso # (Auto) 0.01 Immature Gran # (Auto) 0.02 PT 10.7 INR 1.0 APTT 28.2 PTT Ratio 1.0 Sodium 138 Potassium 3.7 Chloride 104 Carbon Dioxide 24 Anion Gap 10 BUN 10 Creatinine 0.65 Est Cr Clr Drug Dosing 103.0 Est GFR ( Amer) 109.5 Est GFR (Non-Af Amer) 94.5 BUN/Creatinine Ratio 15.4 Glucose 87 Calcium 9.7 Magnesium 2.2 Total Bilirubin 0.8 AST 18 ALT 20 Alkaline Phosphatase 54 Troponin I High Sens 7.6 Total Protein 8.2 Albumin 4.8 Globulin 3.4 Albumin/Globulin Ratio 1.4 TSH Hepatitis C Ab (EIA) Hep C Ab Signal/Cutoff SARS-CoV-2, RNA, NAAT 05/18/22 05/18/22 05/19/22 18:41 20:51 00:27 WBC RBC Hgb Hct MCV MCH MCHC RDW Std Deviation RDW Coeff of Adeel Plt Count MPV Immature Gran % (Auto) Neut % (Auto) Lymph % (Auto) [place] % (Auto) Eos % (Auto) Baso % (Auto) Neut # (Auto) Lymph # (Auto) [place] # (Auto) Eos # (Auto) Baso # (Auto) Immature Gran # (Auto) PT INR APTT PTT Ratio Sodium Potassium Chloride Carbon Dioxide Anion Gap BUN Creatinine Est Cr Clr Drug Dosing Est GFR ( Amer) Est GFR (Non-Af Amer) BUN/Creatinine Ratio Glucose Calcium Magnesium Total Bilirubin AST ALT Alkaline Phosphatase Troponin I High Sens 20.3 H D Total Protein Albumin Globulin Albumin/Globulin Ratio TSH 2.107 Hepatitis C Ab (EIA) Hep C Ab Signal/Cutoff SARS-CoV-2, RNA, NAAT NEGATIVE 05/19/22 05/19/22 05/19/22 05:22 05:22 05:22 WBC 5.18 RBC 3.97 L Hgb 12.9 Hct 37.0 MCV 93.2 MCH 32.5 MCHC 34.9 RDW Std Deviation 42.0 RDW Coeff of Adeel 12.3 Plt Count 191 MPV 10.4 Immature Gran % (Auto) 0.2 Neut % (Auto) 62.4 Lymph % (Auto) 27.2 [place] % (Auto) 8.5 Eos % (Auto) 1.5 Baso % (Auto) 0.2 Neut # (Auto) 3.23 Lymph # (Auto) 1.41 [place] # (Auto) 0.44 Eos # (Auto) 0.08 Baso # (Auto) 0.01 Immature Gran # (Auto) 0.01 PT INR APTT PTT Ratio Sodium 141 Potassium 4.1 Chloride 109 H Carbon Dioxide 26 Anion Gap 6 BUN 10 Creatinine 0.61 Est Cr Clr Drug Dosing 109.2 Est GFR ( Amer) 111.8 Est GFR (Non-Af Amer) 96.5 BUN/Creatinine Ratio 16.4 Glucose 102 H Calcium 8.8 Magnesium Total Bilirubin AST ALT Alkaline Phosphatase Troponin I High Sens Total Protein Albumin Globulin Albumin/Globulin Ratio TSH Hepatitis C Ab (EIA) Pending Hep C Ab Signal/Cutoff Pending SARS-CoV-2, RNA, NAAT 05/19/22 05:22 WBC RBC Hgb Hct MCV MCH MCHC RDW Std Deviation RDW Coeff of Adeel Plt Count MPV Immature Gran % (Auto) Neut % (Auto) Lymph % (Auto) [place] % (Auto) Eos % (Auto) Baso % (Auto) Neut # (Auto) Lymph # (Auto) [place] # (Auto) Eos # (Auto) Baso # (Auto) Immature Gran # (Auto) PT INR APTT PTT Ratio Sodium Potassium Chloride Carbon Dioxide Anion Gap BUN Creatinine Est Cr Clr Drug Dosing Est GFR ( Amer) Est GFR (Non-Af Amer) BUN/Creatinine Ratio Glucose Calcium Magnesium Total Bilirubin AST ALT Alkaline Phosphatase Troponin I High Sens 21.9 H Total Protein Albumin Globulin Albumin/Globulin Ratio TSH Hepatitis C Ab (EIA) Hep C Ab Signal/Cutoff SARS-CoV-2, RNA, NAAT Diagnostic Findings Telemetry personally reviewed: Atrial fibrillation converted to sinus rhythm at 10:03 p.m. on 05/18/2022. No significant conversion pause. ECGs personally reviewed: ECG 05/18/2022 at 10:12 p.m.: Sinus rhythm 65 beats per minute. Normal ECG. ECG 05/18/2022 at 6:27 p.m.: AFib with RVR 129 beats per minute. Nonspecific ST abnormality. Chest x-ray 05/18/2022: No acute cardiopulmonary findings. Medications Administered Current Inpatient Medications Acetaminophen (Acetaminophen 325 Mg Tab) 650 mg PO Q4H PRN PRN Reason: Pain or Fever Stop: 06/18/22 00:21 Apixaban (Apixaban 5 Mg Tablet) 5 mg PO BID MARVEL Stop: 06/18/22 08:59 Last Admin: 05/19/22 08:03 Dose: 5 mg Documented by: Clopidogrel Bisulfate (Clopidogrel Bisulfate 75 Mg Tab) 75 mg PO QAM MARVEL Stop: 06/18/22 08:59 Last Admin: 05/19/22 08:03 Dose: 75 mg Documented by: Cyanocobalamin (Cyanocobalamin (B-12) 500 Mcg Tablet) 1,000 mcg PO DAILY MARVEL Stop: 06/18/22 08:59 Last Admin: 05/19/22 08:07 Dose: 1,000 mcg Documented by: Lorazepam 0.5 mg/ Syringe 0.5 mls @ 2 mls/min IV Q4H PRN PRN Reason: Anxiety Stop: 06/18/22 00:21 Lactobacillus Acidophilus (Advanced Probiotic 1250 Mg Capsule) 2 cap PO DAILY MARVEL Stop: 06/18/22 08:59 Last Admin: 05/19/22 08:06 Dose: 2 cap Documented by: Latanoprost (Latanoprost 0.005% Op Soln 2.5 Ml Btl) 1 drops OPB HS MARVEL Stop: 06/18/22 20:59 Lisinopril (Lisinopril 10 Mg Tab) 10 mg PO DAILY MARVEL Stop: 06/18/22 08:59 Last Admin: 05/19/22 08:03 Dose: 10 mg Documented by: Magnesium Oxide (Magnesium Oxide 400 Mg Tab) 400 mg PO QPM MARVEL Stop: 06/18/22 20:59 Morphine Sulfate (Morphine Sulfate 4 Mg/Ml 1 Ml Carp\Vial) 4 mg IV Q4H PRN PRN Reason: Pain Stop: 06/02/22 00:21 Nitroglycerin (Nitroglycerin Sl 0.4 Mg/Tab Tab) 0.4 mg SL UD PRN PRN Reason: Chest Pain Stop: 06/18/22 00:21 Pantoprazole Sodium (Pantoprazole 40 Mg Tab) 40 mg PO DAILY MARVEL Stop: 06/18/22 08:59 Last Admin: 05/19/22 08:07 Dose: 40 mg Documented by: Rosuvastatin Calcium (Rosuvastatin Calcium 5 Mg Tab) 5 mg PO DAILY MARVEL Stop: 06/18/22 08:59 Last Admin: 05/19/22 08:07 Dose: 5 mg Documented by: Timolol Maleate (Timolol Maleate 0.5% Op Soln 5 Ml Btl) 1 drops OP QAM MARVEL Stop: 06/18/22 08:59 Last Admin: 05/19/22 08:07 Dose: 1 drops Documented by: Tramadol HCl (Tramadol Hcl 50 Mg Tablet) 25 - 50 mg PO Q4H PRN PRN Reason: Pain Stop: 06/18/22 00:21 PG Care Time/CCT Total # of Minutes Spent Total Time Spent with Patient: Total time spent is greater than 50% in coordination of care (as documented) at patient's floor/unit and/or counseling patient: Coding Level of Care Code 11977 Office/OBS Consult Lvl 5 Diagnoses Paroxysmal atrial fibrillation I48.0 CAD (coronary artery disease) I25.10 S/P coronary artery stent placement Z95.5 Dyslipidemia E78.5 YFN (obstructive sleep apnea) G47.33 HTN (hypertension) I10 Hypertension type: unspecified Chest pain R07.9 Anticoagulant long-term use Z79.01 Time Spent (min) 75 (1) HTN (hypertension) Hypertension type: unspecified Qualified Code(s): I10 - Essential (primary) hypertension
--- NOTE | 2022-05-19 16:35 | Discharge Summary ---
Date of Service May 19, 2022 Discharge Data Allergies Allergy/AdvReac Type Severity Reaction Status Date / Time Sulfa (Sulfonamide Allergy Unknown CAN'T Verified 03/26/22 00:01 Antibiotics) REMEMBER dofetilide [From Tikosyn] AdvReac Intermediate ill Verified 05/18/22 23:55 doxycycline AdvReac Intermediate CAUSED Verified 03/26/22 00:01 A-FIB Consultations 05/18/22 20:49 ED Decision to Admit Stat 05/19/22 00:22 Consult Cardiology Routine Hospital Course (1) Paroxysmal atrial fibrillation: (2) Atrial fibrillation with rapid ventricular response: (3) HTN (hypertension): (4) CAD (coronary artery disease): (5) Dyslipidemia: (6) Obesity: (7) YFN (obstructive sleep apnea): HPI, PE, med rec completed by Velma Del Cid PA-C. Assessment and plan per Dr Constantino. See addendum. Discharge Plan Discharge Items Patient Disposition: Home - Self-Care Reason For Visit: CP, PAF Discharge Diagnosis: Recurrent Atrial fibrillation Coronary artery disease Hypertension Obstructive sleep apnea Activity: Resume your previous activity Non-emergency contact: Primary Care Provider and Professional Services Specialist Call non-emergency contact if: you have any medication questions and your symptoms worsen Follow-up/Referrals: Ilana Harris MD [Primary Care Provider] - Diet: Heart Healthy Addtl Attending Provider Instructions: Follow up with your primary care provider within 1 week (please call to schedule for the appointment ) Follow up with [facility] cardiology (Please call for the appointment) Please seek urgent medical attention if your symptoms worsening Fall precaution Pending Studies at Discharge: No Stand-Alone Forms: My [facility], Smoking Cessation Medications and DC Order Prescriptions: Continued latanoprost 0.005 % drops 1 drp OPB HS RF: 0 timolol maleate 0.5 % drops 1 drp OPB QAM RF: 0 cholecalciferol (vitamin D3) [Vitamin D3] 25 mcg (1,000 unit) Capsule 25 mcg PO DAILY RF: 0 cyanocobalamin (vitamin B-12) [Vitamin B-12] 1,000 mcg Tablet 1,000 mcg PO DAILY RF: 0 magnesium 250 mg Tablet 250 mg PO QPM RF: 0 pantoprazole 40 mg tablet,delayed release (DR/EC) 40 mg PO DAILY RF: 0 Probiotic 3 billion cell Capsule 0 mmu cells PO DAILY RF: 0 ascorbic acid (vitamin C) [Vitamin C] 1,000 mg Tablet 1 g PO DAILY RF: 0 Eliquis 5 mg tablet 5 mg PO BID Qty: 60 RF: 0 clopidogrel 75 mg tablet 75 mg PO QAM RF: 0 lisinopril 10 mg tablet 10 mg PO DAILY RF: 0 rosuvastatin [Crestor] 20 mg Tablet 5 mg PO DAILY RF: 0 Benefiber (guar gum) Packet 1 tbsp PO DAILY RF: 0 B12 Active 1,000 mcg Tablet,Chewable 1,000 mcg PO RF: 0 Vitamin D3 1,000 units PO 1XD RF: 0 verapamil 40 mg Tablet 40 mg PO BID RF: 0 rosuvastatin 5 mg Tablet 5 mg PO DAILY RF: 0 Discharge Orders: Discharge Order (Routine); Ordered 05/19/22 Ordered By: Glenis Townsend Admission Data Admit Date/Time: 05/18/22 22:47 Attending Provider: Glenis Townsend Admit Provider: Bereket Constantino Primary Care Provider: Ilana Harris Other Providers: Bereket Constantino ; Silver Au ; David Maloney ; Gustavo Culp ; José Manuel Garcia ; Grabiel Garcia ; Rajiv Zhu Jr ; Ignacio Cardoza ; Judie Armendariz ; Sophia Metz ; Jimenez Quintana ; Aly Braxton ; Tyrell Yadav ; Morelia Flores ; Imelda Burk ; Clifton Smith ; Galdino Booker Henry C. ; José Manuel Galindo V.
[2022-05-19] MEDS ORDERED: MAGNESIUM OXIDE 400 MG TAB PO SCH (21:00)
[2022-05-19] MEDS ORDERED: LATANOPROST 0.005% OP SOLN 2.5 ML BTL OPB SCH (21:00)
--- NOTE | 2022-05-19 23:08 | Electrocardiogram Report ---
Test Reason : Blood Pressure : / mmHG Vent. Rate : 129 BPM Atrial Rate : 129 BPM P-R Int : 000 ms QRS Dur : 088 ms QT Int : 280 ms P-R-T Axes : 000 013 078 degrees QTc Int : 410 ms Atrial fibrillation with rapid ventricular response Nonspecific ST abnormality Abnormal ECG When compared with ECG of 29-MAR-2022 21:58, Atrial fibrillation has replaced Sinus rhythm Vent. rate has increased BY 81 BPM Confirmed by Ignacio Cardoza ([id number]) on 05/19/2022 11:08:13 PM Referred By: REFERRED SELF Confirmed By:Ignacio Cardoza
--- NOTE | 2022-05-19 23:10 | Electrocardiogram Report ---
Test Reason : Blood Pressure : / mmHG Vent. Rate : 065 BPM Atrial Rate : 065 BPM P-R Int : 190 ms QRS Dur : 090 ms QT Int : 394 ms P-R-T Axes : 068 000 046 degrees QTc Int : 409 ms Normal sinus rhythm Normal ECG When compared with ECG of 18-MAY-2022 18:27, Sinus rhythm has replaced Atrial fibrillation Vent. rate has decreased BY 64 BPM Confirmed by Ignacio Cardoza ([id number]) on 05/19/2022 11:10:16 PM Referred By: REFERRED SELF Confirmed By:Ignacio Cardoza
== END 2022-05-19 18:29 | disposition home or self-care (01) ==
LOC: ED 18:20 → 2E 18:20